=== PATIENT | male | born 1955 | race Caucasian/White ===

== ENCOUNTER → 2024-08-08 | Outpatient (CLI) | payer MEDICARE, SELFPAY ==
--- NOTE | 2024-08-08 13:19 | CT_ITS ---
PROCEDURE: SINUS/FACIAL BONE 08/08/2024 REASON FOR EXAM: SINUSITIS TECHNIQUE: SINUS/FACIAL BONE Coronal and Sagittal reconstruction series were provided. One or more dose reduction techniques were used (e.g., Automated exposure control, adjustment of the mA and/or kV according to patient size, use of iterative reconstruction technique). RADIATION DOSE SUMMARY: CTDlvol: 33.06 mGy DLP: 738.8 mGycm COMPARISON: None. FINDINGS: Frontal: Moderate chronic mucosal inflammatory changes of the left frontal sinus. Ethmoid: Moderate chronic mucosal inflammatory changes of the left ethmoid air cells. Minimal chronic mucosal inflammatory changes of the right ethmoid air cells. Sphenoid: Unremarkable. Maxillary: Moderate chronic mucosal inflammatory thickening obliterating of the left maxillary sinus and extending to the corresponding aspect of the left nasal cavity. Turbinates: Mild hypertrophy of the inferior turbinates. Nasal Septum: Mild S shaped nasal septum deviation. Mastoids/Middle Ears: Unremarkable. CT/Sinus/Facial Bone IMPRESSION: Chronic sinusitis. [facility]
== END | disposition home or self-care (01) ==
LOC: CT 13:13
PROVIDERS: Referring Provider Otolaryngology; Visit Provider Otolaryngology
DX: J32.9 Chronic sinusitis, unspecified (principal)
CPT/HCPCS: 70486

== ENCOUNTER → 2024-09-21 | Outpatient (CLI) | payer MEDICARE, SELFPAY ==
--- NOTE | 2024-09-21 12:06 | EKG12_ITS ---
Test Reason : PREOP Blood Pressure : */* mmHG Vent. Rate : 54 BPM Atrial Rate : 54 BPM P-R Int : 184 ms QRS Dur : 88 ms QT Int : 418 ms P-R-T Axes : 43 -25 -8 degrees QTcB Int : 396 ms Sinus bradycardia Otherwise normal ECG Confirmed by CALVIN WEST ([id number]), supervising editor news reel KENNEDY LANGE ([id number]) on 09/24/2024 6:43:23 AM Referred By: Robin Vasquez Confirmed By: CALVIN WEST
[2024-09-21 13:19] LABS: Hematocrit 45.3 % (40-54); Hemoglobin 15.2 g/dL (13.0-16.5); Mean Corp Hgb Conc 33.6 g/dL (32-36); Mean Corpuscular Volume 92.6 fL (80-94); Mean Platelet Vol. 10.5 fl (6.2-12.0); Platelet Count 264 K/mm3 (150-450); RBC Distribution Width CV 13.9 % (11.6-14.6); RBC Distribution Width SD 47.5 fl (35.1-43.9); Red Blood Count 4.89 M/mm3 (4.6-6.2); White Blood Count 5.3 K/mm3 (4.4-11.0)
[2024-09-21 13:56] LABS: Anion Gap 13 (5-15); BUN 24 mg/dL (4-19); BUN/Creat Ratio 19.0 RATIO (10-20); Calcium,Total 9.7 mg/dL (7.6-11.0); Carbon Dioxide 23.9 mmol/L (21.0-32.0); Chloride 104 mmol/L (98-108); Glucose 93 mg/dL (70-99); Potassium 4.4 mmol/L (3.3-5.1)
== END | disposition home or self-care (01) ==
LOC: PSN 12:06
PROVIDERS: Referring Provider Otolaryngology; Visit Provider Otolaryngology
DX: Z01.818 Encounter for other preprocedural examination (principal)
CPT/HCPCS: 36415; 80048; 85027; 93005

== ENCOUNTER → 2024-10-03 | Outpatient (CLI) | payer MEDICARE, SELFPAY ==
--- NOTE | 2024-10-02 09:45 | ETH_PTH ---
PATIENT: SUNG WEBB LOC: [facility] U#:[id number] AGE/SX: 68/M ROOM: RE10/03/[address]: Dr. Robin Vasquez MD : 1955 BED: DIS: 10/03/2024 SPEC #: [id number] RECD: 10/03/24 15:56 STATUS: JORDON MANCIA #: [id number] FARIDEH: 10/02/24 09:[address]: Robin Vasquez DEPT: SURGICAL PATHOLOGY RECD BY: Orville Saldana Tissues: A - Ethmoid sinus, NOS B - Ethmoid sinus, NOS Procedures: Surgery Specimen Level IV HEADER OPERATION: Functional endoscopic sinus surgery PRE-OP DIAGNOSIS: Nasal congestion, chronic sinusitis, chronic allergy rhinitis TISSUE SUBMITTED: A- Right sinus contents, B- Left sinus contents MICROSCOPIC DIAGNOSIS A. Sinus, right, functional endoscopic sinus surgery: * Fragments of benign respiratory type mucosa and bone with mild chronic inflammation B. Sinus, left, functional endoscopic sinus surgery: * Fragments of benign respiratory type mucosa and bone with mild chronic inflammation MICROSCOPIC DESCRIPTION Slides are reviewed. GROSS DESCRIPTION Received in 2 formalin containers labeled with the patient's name and date of . Designated as: A. Right sinus content is a 1.5 x 1.0 x 0.3 cm aggregate of nunn-red tissue and bone fragments. Entirely submitted in 1 cassette, following decalcification. B. Left sinus contents is a 2.2 x 1.8 x 0.3 cm aggregate of nunn-red tissue and bone fragments. Entirely submitted in 1 cassette, following decalcification. OR 10/04/2024 CPT:22812,36224k7
--- OUTSIDE RECORDS SUMMARY | 2024-10-03 20:12 | XMS RPT_ITS | CCD ---
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 Role Phone ANASTASIA, HARPREET D Unavailable Unavailable ANASTASIA, HARPREET D Unavailable Unavailable ANASTASIA, HARPREET D Unavailable Unavailable ANASTASIA, HARPREET D Unavailable Unavailable ANASTASIA, HARPREET D Unavailable Unavailable ANASTASIA, HARPREET D Unavailable Unavailable ANASTASIA, HARPREET D Unavailable Unavailable ANASTASIA, HARPREET D Unavailable Unavailable System, Provider Not In Primary Care Provider Un available Unavailable Primary Care Provider Unavailabl e No, Physician Primary Care Provider Unavailabl e MARISSA ALONSO Attending Unavailable SYSTEM, PROVIDER NOT IN Referring Unavaila ble SYSTEM, PROVIDER NOT IN Admitting Unavaila ble NO, PHYSICIAN Primary Care Unavailable SYSTEM, PROVIDER NOT IN Referring Unavaila ble SYSTEM, PROVIDER NOT IN Admitting Unavaila ble NO, PHYSICIAN Primary Care Unavailable GERALDINE ALONSORATA Attending Unavailable SYSTEM, PROVIDER NOT IN Referring Unavaila ble SYSTEM, PROVIDER NOT IN Primary Care Unavaila ble SYSTEM, PROVIDER NOT IN Admitting Unavaila ble MARISSA ALONSO Attending Unavailable NO, PHYSICIAN Primary Care Unavailable Unavailable Primary Care Provider Unavailabl e Unavailable Primary Care Provider Unavailabl e Generic Provider MD, No Assigned Pcp Primary Car e Provider Unavailable FELIZ, MAXWELL E Referring Unavailable NAJMA MCKENZIE Referring Unavailable NAJMA MCKENZIE Attending Unavailable SELF Referring Unavailable Dr. Robin Vasquez MD Attending Provider Dr. Robin Vasquez MD Referring Provider GEO REYNAGA Primary Care Provider Generic Provider , No Assigned Pcp Primary Car e Provider Unavailable SELINA NICHOLE Attending Unavailable GAVLAK, MAXWELL E Attending Unavailable SELINA CARLIN Referring Unavailable GAMAXX MAXWELL E Attending Unavailable GENERIC PROVIDER, NO ASSIGNED PCP Primary Care Unavailable Craig MEDLEY, Dr. Reyes Attending Provider Dr. Najma Mckenzie MD Referring Provider GEO REYNAGA Primary Care Provider Unavailabl e GAVLAK, MAXWELL E Referring Unavailable GENERIC PROVIDER, NO ASSIGNED PCP Primary Care Unavailable GAVLAK, MAXWELL E Referring Unavailable GENERIC PROVIDER, NO ASSIGNED PCP Primary Care Unavailable GAVLAK, MAXWELL E Referring Unavailable GENERIC PROVIDER, NO ASSIGNED PCP Primary Care Unavailable JAMARI ROPER Attending Unavailable GAVLAK, MAXWELL E Referring Unavailable GENERIC PROVIDER, NO ASSIGNED PCP Primary Care Unavailable GAVLAK, MAXWELL E Referring Unavailable GENERIC PROVIDER, NO ASSIGNED PCP Primary Care Unavailable LAVERN CAMARGO Attending Unavailable GAVLAK, MAXWELL E Referring Unavailable GENERIC PROVIDER, NO ASSIGNED PCP Primary Care Unavailable GAVLAK, MAXWELL E Referring Unavailable GENERIC PROVIDER, NO ASSIGNED PCP Primary Care Unavailable GAVLAK, MAXWELL E Referring Unavailable GENERIC PROVIDER, NO ASSIGNED PCP Primary Care Unavailable GAVLAK, MAXWELL E Referring Unavailable GENERIC PROVIDER, NO ASSIGNED PCP Primary Care Unavailable GEO REYNAGA Primary Care Provider Sury MEDLEY, Dr. Cole Attending Provider Robin Vasquez Referring Unavailabl Calvin Mendenhall Attending Unavailable Robin Vasquez Referring Unavailabl e Robin Vasquez Attending Unavailabl e CARLINE ANUPAMA Primary Care Unavailable Robin Vasquez Referring Unavailabl e Robin Vasquez Attending Unavailabl e [facility] Unavailable Eric Srinivasan Attending Unavailable [facility] Primary Care Unavailable Najma Mckenzie Referring Unavailable Allergies Allergy Classification Reported Allergen(s) Allergy Type Date of Onset Reaction(s) Facility (12 sources) Faroese elm pollen extract; Translations: [TREE POLLEN-TUVALUAN ELM] Drug Allergy 5 Unknown [facility] Work Phone: (8 sources) Adhesive Tape-Silicones; Translations: [ADHESIVE TAPE-SILICONES] Drug Allergy 5 Itching, Unknown, Rash [facility] (2 sources) Assoxgt-Pvz-Pcf Reductase Inhibitor Allergy to substance 5 myalgia [facility] (1 source) Falpumc-Rxu-Hvo Reductase Inhibitor Drug allergy (disorder) [facility] Repository Medications Current Medications Medication Drug Class(es) Dates Sig (Normalized) Sig (Original) [id number] 200 actuat albuterol 0.09 mg/actuat metered dose inhaler (3 sources) beta2-Adrenergic Agonist Start: 07-26-2024 take 2 puff(s) by inhalation every four hours as needed albuterol HFA (PROVENTIL HFA, VENTOLIN HFA) 90 mcg/actuation inhaler Inhale 2 puffs as instructed every 4 hours as needed. 1 each 5 07/26/2024 Active azelastine hydrochloride 0.137 mg/actuat metered dose nasal spray (5 sources) Histamine-1 Receptor Antagonist Start: 08-29-2024 Azelastine 137 mcg (0.1 %) spray,non-aerosol Active 1 NMA INTRANASAL August 29, 2024 12:00am Start: 05-29-2024 take 2 spray(s) nasa l route twice daily azelastine 0.1% nasal spray Use 2 sprays in each nostril two times a day. 05/29/2024 Active baclofen 20 mg oral tablet (11 sources) gamma-Aminobutyric Acid-ergic Agonist Start: 08-23-2024 take 1 tablet by mouth once daily Baclofen 20 mg tablet Active 20 mg PO daily August 23, 2024 12:00am Start: 06-17-2023 baclofen (Seth esal) 20 mg tablet 1 tablet (20 mg). 06/17/2023 Active ezetimibe 10 mg oral tablet (11 sources) Dietary Cholesterol Absorption Inhibitor Start: 08-23-2024 take 1 tablet by mouth once daily Ezetimibe (Zetia) 10 mg tablet Active 10 mg PO daily August 23, 2024 12:00am Start: 04-25-2023 take 1 tablet by heidy th once daily ezetimibe (Zetia) 10 mg tablet Take 1 tablet (10 mg) by mouth once daily. 04/25/2023 Active fluticasone propionate 0.05 mg/actuat metered dose nasal spray (2 sources) Corticosteroid Start: 08-29-2024 Fluticasone Pr opionate 50 mcg/actuation spray,suspension Active 2 NMA INTRANASAL EVERY MORNING August 29, 2024 12:00am Fluticasone-Umeclid in-Vilanter (3 sources) Anticholinergic, Corticosteroid, beta2-Adrenergic Agonist Start: 08-23-2024 Fluticasone-Umeclidi n-Vi lanter (Trelegy Ellipta) 100-62.5-25 mcg blister with device Active 1 NMA INHALATION daily August 23, 2024 12:00am Start: 05-24-2024 End: 07-26-2024 take 1 puff(s) by inhalation once daily TRELEGY ELLIPTA 100-62.5-25 mcg inhalation powder Inhale 1 puff as instructed once daily. 05/24/2024 07/26/2024 Discontinued fluticasone prp-sod.chl,bicarb 50 mcg- 0.9 % ksps (3 sources) Start: 05-29-2024 fluticasone prp-sod.chl,bicarb 50 mcg- 0.9 % ksps Use 2 sprays in the nose once daily. 05/29/2024 Active gjlubdsuahg-vrpjflmiu-l ilanter (TRELEGY ELLIPTA) 200-62.5-25 mcg inhalation powder (3 sources) Start: 07-26-2024 take 1 puff(s) by inhalation once daily fluticasone-umeclidin- vilanter (TRELEGY ELLIPTA) 200-62.5-25 mcg inhalation powder Inhale 1 puff as instructed once daily. 1 each 07/26/2024 Active gabapentin 400 mg oral capsule (7 sources) Anti-epile ptic Agent Start: 08-29-2024 take 1 tablet by mouth once daily Gabapentin 400 mg tablet Active 400 mg PO daily August 29, 2024 1:26pm Start: 08-23-2024 End: 08-29-2024 take 1 tablet by mouth three times daily Gabapentin 400 mg tablet Discontinued 400 mg PO THREE TIMES A DAY August 23, 2024 12:00am August 29, 2024 1:27pm Start: 03-17-2023 Gabapentin 400 mg tab 400 mg. 03/17/2023 Active gabapentin (Neurontin) 400 mg split tablet (6 sources) Start: 03-17-2023 gabapentin (Neurontin) 400 mg split tablet 1 half tablet (400 mg). 03/17/2023 Active gemfibrozil 600 mg oral tablet (13 sources) Peroxisome Proliferator Receptor alpha Agonist Start: 08-29-2024 take 1 tablet by mouth twice daily Gemfibrozil 600 mg tablet Active 600 mg PO TWICE A DAY August 29, 2024 1:26pm Start: 08-23-2024 End: 08-29-2024 take 1 tablet by mouth once daily Gemfibrozil 600 mg tablet Discontinued 600 mg PO daily August 23, 2024 12:00am August 29, 2024 1:27pm gemfibrozil (Lop id) 600 mg tablet 1 tablet (600 mg). Active lemborexant 5 mg oral tablet (6 sources) Start: 08-23-2024 take 1 tablet by mouth at bedtime Lemborexant (Dayvigo) 5 mg tablet Active 5 mg PO AT BEDTIME August 23, 2024 12:00am take 1 tablet by heidy th once daily at bedtime Dayvigo 5 mg tablet Take 1 tablet (5 mg) by mouth once daily at bedtime. Active predniSONE 10 mg oral tablet (6 sources) Start: 06-21-2024 predniSONE (De ltasone) 10 mg tablet Indications: Cervical radiculopathy 50MG FOR 2 DAYS, 40MG FOR 2 DAYS, 30MG FOR 2 DAYS, 20MG FOR 2 DAYS, 10MG FOR 2 DAYS 30 tablet 06/21/2024 Active Start: 06-21-2024 predniSONE (DE LTASONE) 10 mg tablet Take by mouth once daily. 06/21/2024 Active Completed/Discontinued Medications Medication Drug Class(es) Dates Sig (Normalized) Sig (Original) cetirizine hydrochloride 10 mg oral tablet (2 sources) Histamine-1 Receptor Antagonist Start: 08-23-2024 End: 08-29-2024 take 1 tablet by mouth once daily as needed Cetirizine (Zyrtec) 10 mg tablet Discontinued 10 mg PO daily as needed August 23, 2024 12:00am August 29, 2024 1:25pm Problems Active Problems Problem Classification Problem Date Documented Da te Episodic/Chronic Cancer of prostate (2 sources) Malignant tumor of prostate; Translations: [Malignant neoplasm of prostate] 08-23-2024 Chronic Cardiac dysrhythmias (6 sources) Palpitations; Translations: [Palpitations] Onset: 08-29-2024 08-23-2024 Episodic Chronic kidney disease (2 sources) Chronic kidney disease; Translations: [Chronic kidney disease, unspecified] 08-23-2024 Chronic Chronic obstructive pulmonary disease and bronchiectasis (8 sources) Asthma-chronic obstructive pulmonary disease overlap syndrome; Translations: [Asthma-COPD overlap syndrome (HCC)] Onset: 06-20-2024 07-26-2024 Chronic Diabetes mellitus without complication (2 sources) Hyperglycemia, unspecified; Translations: [Hyperglycemia, unspecified] Onset: 11-02-2023 Episodic Disorders of lipid metabolism (9 sources) Mixed hyperlipidemia; Translations: [Hypercholesterolemi a] Onset: 11-02-2023 Chronic Essential hypertension (3 sources) Essential hypertension; Translations: [Essential (primary) hypertension] Onset: 08-29-2024 08-23-2024 Chronic Malaise and fatigue (3 sources) Fatigue; Translations: [Other fatigue] Onset: 08-29-2024 08-23-2024 Episodic Mood disorders (2 sources) Depressive disorder; Translations: [Depressive disorder] 08-23-2024 Chronic Nonspecific chest pain (2 sources) Chest pain; Translations: [Chest pain, unspecified] 08-29-2024 Episodic Other connective tissue disease (2 sources) Presence of left artificial knee joint; Translations: [Presence of left artificial knee joint] Onset: 06-24-2023 Chronic Other connective tissue disease (2 sources) Pain in left thumb; Translations: [Pain in left finger(s)] 07-12-2023 Episodic Other gastrointestinal disorders (2 sources) H/O: abdominal hernia; Translations: [Personal history of other diseases of the digestive system] 08-23-2024 Episodic Other lower respiratory disease (1 source) Dyspnea 07-26-2024 Episodic Other lower respiratory disease (2 sources) Hypoxemia; Translations: [Hypoxemia] 08-23-2024 Episodic Other lower respiratory disease (2 sources) Cough; Translations: [Cough] 08-23-2024 Episodic Other upper respiratory disease (1 source) Seasonal allergy; Translations: [Other seasonal allergic rhinitis] 06-27-2024 Chronic Other upper respiratory disease (2 sources) Deviated nasal septum; Translations: [Deviated nasal septum] 08-23-2024 Episodic Other upper respiratory infections (1 source) Chronic sinusitis, unspecified; Translations: [Chronic sinusitis, unspecified] Onset: 08-13-2024 Chronic Other upper respiratory infections (2 sources) Posterior rhinorrhea; Translations: [Postnasal drip] Onset: 07-26-2024 07-26-2024 Episodic Residual codes; unclassified (5 sources) Obstructive sleep apnea syndrome; Translations: [Obstructive sleep apnea (adult) (pediatric)] 06-27-2024 Chronic Residual codes; unclassified (1 source) Obstructive sleep apnea (adult) (pediatric); Translations: [JUAN on CPAP] Onset: 07-26-2024 Chronic Residual codes; unclassified (2 sources) Sleep apnea; Translations: [Sleep Apnea] Onset: 06-20-2024 Chronic Spondylosis; intervertebral disc disorders; other back problems (20 sources) Intervertebral disc disorders with radiculopathy, lumbar region; Translations: [Cervical radiculopathy] Onset: 07-07-2017 06-21-2024 Episodic Unclassified (1 source) l4-5 DDD / l4-5 DDD() Onset: 07-19-2017 Unclassified (1 source) Asthma-COPD overlap syndrome (HCC); Translations: [Asthma-COPD overlap syndrome (HCC)] Onset: 07-26-2024 Past or Other Problems Problem Classification Problem Date Documented Da te Episodic/Chronic Other connective tissue disease (11 sources) Trigger thumb of left hand; Translations: [Trigger thumb, left thumb] Onset: 07-12-2023 07-12-2023 Episodic Unclassified (1 source) l4-5 DDD; Translations: [l4-5 DDD] Onset: 07-19-2017 Results Test Name Value Interpretation Reference Range Facility Electrocardiogram reportOrde red By: Calvin Ga on 09-24-[address] [facility] [address] [place] [address] 12 Lead EKG 09/21/24 1217 MR#: [id number] Acct: [id number] Name: SUNG HOBBS Rep #:[id number] : 1955 68 From: Calvin Ga MD Attending Dr: Dr. Robin Vasquez MD Status: REG CLI Ordering Dr: Robin Vasquez MD D ate: 09/21/24 Location: PSN Sex: M C Admitted: Test Reason : PREOP Blood Pressure : */* mmHG Vent. Rate : 54 BPM Atrial Rate : 54 BPM P-R Int : 184 ms QRS Dur : 88 ms QT Int : 418 ms P-R-T Axes : 43 -25 -8 degrees QTcB Int : 396 ms Sinus bradycardia Otherwise normal ECG Confirmed by CALVIN GA ([id number]), editor continuity and script KENNEDY LANGE ([id number]) on 09/24/2024 6:43:23 AM Referred By: Robin Vasquez Confirmed By: CALVIN GA 09/24/2443 Date _ Calvin Ga MD CC: GEO REYNAGA; Dr. Robin Vasquez MD ~ Signed [facility] Work Phone: 12 Lead EKGon 09-21-2024 12 Lead EKG [facility] [address] [place] [address] 12 Lead EKG 09/21/24 1217 MR#: [id number] Acct: [id number] Name: SUNG HOBBS Rep #: [id number] : 1955 68 From: Calvin Ga MD Attending Dr: Dr. Robin Vasquez MD Statu s: REG CLI Ordering Dr: Robin Vasquez MD Date: 5 Location: [facility] Sex: M C Admitted: Test Reason : PREOP Blood Pressure : */* mmHG Vent. Rate : 54 BPM Atrial Rate : 54 BPM P-R Int : 184 ms QRS Dur : 88 ms QT Int : 418 ms P-R-T Axes : 43 -25 -8 degrees QTcB Int : 396 ms Sinus bradycardia Otherwise normal ECG Confirmed by CALVIN GA ([id number]), editor continuity and script KENNEDY LANGE ([id number]) on 09/24/2024 6:43:23 AM Referred By: Robin Vasquez Confirmed By: CALVIN GA 09/24/24 0643 Date Calvin Ga MD CC: GEO REYNAGA; Dr. Robin Vasquez MD Signed Normal [facility] Anion gap in Serum or Plasma Ordered By: Robin Vasquez on 09-21-2024 Anion gap [Moles/Vol] 13 mmol/L 5-15 [facility] BUN/creatinine ratioOrdered By: Robin Vasquez on 09-21-2024 Urea nitrogen/Creatinine [Mass ratio] 19.0 mg/mg 10-20 [facility] Basic Metabolic Profile (BMP )on 09-21-2024 BUN/CRE 19.0 RATIO Normal - [facility] Comment on above: Performed By: #### L 100.0500, L500.2500 #### [facility] [address] [place], [address] Calcium [Mass/Vol] 9.7 mg/dL Normal 7.6-11.0 [facility] Comment on above: Performed By: #### L 100.0500, L500.2500 #### [facility] [address] [place], [address] Chloride [Moles/Vol] 104 mmol/L Normal 98-108 [facility] Comment on above: Performed By: #### L 100.0500, L500.2500 #### [facility] [address] [place], [address] CO2 [Moles/Vol] 23.9 mmol/L Normal 21.0-32.0 [facility] Comment on above: Performed By: #### L 100.0500, L500.2500 #### [facility] [address] [place], [address] Creatinine [Mass/Vol] 1.27 mg/dL High 0.70-1.20 [facility] Comment on above: Performed By: #### L 100.0500, L500.2500 #### [facility] [address] [place], [address] GAP 13 Normal 5-15 [facility] Comment on above: Performed By: #### L 100.0500, L500.2500 #### [facility] [address] [place], [address] GFR/1.73 sq M.predicted among non-blacks MDRD (S/P/Bld) [Vol rate/Area] 62 mL/min/{1.73_m2} Normal >60 [facility] Comment on above: Result Comment: mL/m in/1.73m2 CKD-EPI Creatinine Equation (2020) Performed By: #### L 100.0500, L500.2500 #### [facility] [address] [place], [address] Glucose [Mass/Vol] 93 mg/dL Normal 70-99 [facility] Comment on above: Performed By: #### L 100.0500, L500.2500 #### [facility] [address] [place], [address] Potassium [Moles/Vol] 4.4 mmol/L Normal 3.3-5.1 [facility] Comment on above: Performed By: #### L 100.0500, L500.2500 #### [facility] [address] [place], [address] Sodium [Moles/Vol] 141 mmol/L Normal 133-145 [facility] Comment on above: Performed By: #### L 100.0500, L500.2500 #### [facility] [address] [place], [address] Urea nitrogen [Mass/Vol] 24 mg/dL High 4-19 [facility] Comment on above: Performed By: #### L 100.0500, L500.2500 #### [facility] [address] [place], [address] CBC-Complete Blood Cnt No Di ffon 09-21-2024 Erythrocyte distribution width (RBC) [Ratio] 13.9 % Normal 11.6-14.6 [facility] Comment on above: Performed By: #### L 100.0500, L500.2500 #### [facility] [address] [place], [address] Hematocrit (Bld) [Volume fraction] 45.3 % Normal 40-54 [facility] Comment on above: Performed By: #### L 100.0500, L500.2500 #### [facility] [address] [place], [address] Hemoglobin (Bld) [Mass/Vol] 15.2 g/dL Normal 13.0-16.5 [facility] Comment on above: Performed By: #### L 100.0500, L500.2500 #### [facility] [address] [place], [address] MCH (RBC) [Entitic mass] 31.1 pg Normal 27.0-32.0 [facility] Comment on above: Performed By: #### L 100.0500, L500.2500 #### [facility] [address] [place], [address] MCHC (RBC) [Mass/Vol] 33.6 g/dL Normal 32-36 [facility] Comment on above: Performed By: #### L 100.0500, L500.2500 #### [facility] [address] [place], [address] MCV (RBC) [Entitic vol] 92.6 fL Normal 80-94 [facility] Comment on above: Performed By: #### L 100.0500, L500.2500 #### [facility] [address] [place], [address] Platelet mean volume (Bld) [Entitic vol] 10.5 fL Normal 6.2-12.0 [facility] Comment on above: Performed By: #### L 100.0500, L500.2500 #### [facility] [address] [place], [address] Platelets (Bld) [#/Vol] 264 10*3/uL Normal 150-450 [facility] Comment on above: Performed By: #### L 100.0500, L500.2500 #### [facility] [address] [place], [address] RBC (Bld) [#/Vol] 4.89 10*6/uL Normal 4.6-6.2 [facility] Comment on above: Performed By: #### L 100.0500, L500.2500 #### [facility] [address] [place], [address] RDW SD 47.5 fl High 35.1-43.9 [facility] Comment on above: Performed By: #### L 100.0500, L500.2500 #### [facility] [address] [place], [address] WBC (Bld) [#/Vol] 5.3 10*3/uL Normal 4.4-11.0 [facility] Comment on above: Performed By: #### L 100.0500, L500.2500 #### [facility] [address] [place], [address] Carbon dioxide, total [Moles /volume] in Central venous bloodOrdered By: Robin Vasquez on 09-21-2024 CO2 [Moles/Vol] 23.9 mmol/L 21.0-32.0 [facility] Chloride assayOrdered By: Tammy Vasquez on 09-21-2024 Chloride [Moles/Vol] 104 mmol/L 98-108 [facility] Erythrocyte distribution wid th ratioOrdered By: Robin Vasquez on 09-21-2024 Erythrocyte distribution width (RBC) [Ratio] 13.9 % 11.6-14.6 [facility] Erythrocyte distribution wid th standard deviationOrdered By: Robin Vasquez on 09-21-2024 Erythrocyte distribution width (RBC) [Ratio] 47.5 fl High 35.1-43.9 [facility] Glomerular filtration rate ( GFR) estimation/1.73 sq m using serum, plasma, or whole bOrdered By: Robin Vasquez on 09-21-2024 GFR/1.73 sq M.predicted among non-blacks MDRD (S/P/Bld) [Vol rate/Area] 62 mL/min/{1.73_m2} >60 [facility] Comment on above: mL/min/1.73m2 CKD-EP I Creatinine Equation (2020) Hematocrit Auto (Bld) [Volum e fraction]Ordered By: Robin Vasquez on 09-21-2024 Hematocrit (Bld) [Volume fraction] 45.3 % 40-54 [facility] Hemoglobin measurementOrdere d By: Robin Vasquez on 09-21-2024 Hemoglobin (Bld) [Mass/Vol] 15.2 g/dL 13.0-16.5 [facility] MCV (mean corpuscular volume ) determinationOrdered By: Robin Vasquez on 09-21-2024 MCV (RBC) [Entitic vol] 92.6 fL 80-94 [facility] Mean corpuscular hemoglobin (MCH) determinationOrdered By: [facility] Vas[facility] on 09-21-2024 MCH (RBC) [Entitic mass] 31.1 pg 27.0-32.0 [facility] Mean corpuscular hemoglobin concentration (MCHC) determinationOrdered By: Robin Vasquez on 09-21-2024 MCHC (RBC) [Mass/Vol] 33.6 g/dL 32-36 [facility] Mean platelet volume determi nationOrdered By: Robin Vasquez on 09-21-2024 Platelet mean volume (Bld) [Entitic vol] 10.5 fL 6.2-12.0 [facility] Platelet countOrdered By: Tammy Vasquez on 09-21-2024 Platelets (Bld) [#/Vol] 264 10*3/uL 150-450 [facility] Potassium measurement (mass/ volume)Ordered By: Robin Vasquez on 09-21-2024 Potassium (Unsp spec) [Mass/Vol] 4.4 mmol/L 3.3-5.1 [facility] RBC Auto (Bld) [#/Vol]Ordere d By: Robin Vasquez on 09-21-2024 RBC (Bld) [#/Vol] 4.89 10*6/uL 4.6-6.2 [facility] Serum creatinine measurement (mass/volume)Ordered By: Robin Vasquez on 09-21-2024 Creatinine [Mass/Vol] 1.27 mg/dL High 0.70-1.20 [facility] Serum glucose measurement (m ass/volume)Ordered By: Robin Vasquez on 09-21-2024 Glucose [Mass/Vol] 93 mg/dL 70-99 [facility] Serum or plasma calcium farzaneh urement (mass/volume)Ordered By: Robin Vasquez on 09-21-2024 Calcium [Mass/Vol] 9.7 mg/dL 7.6-11.0 [facility] Serum or plasma urea nitroge n measurement (mass/volume)Ordered By: Robin Vasquez on 09-21-2024 Urea nitrogen [Mass/Vol] 24 mg/dL High 4-19 [facility] Sodium levelOrdered By: Jorge Vasquez on 09-21-2024 Sodium [Moles/Vol] 141 mmol/L 133-145 [facility] White blood cell (WBC) count Ordered By: Robin Vasquez on 09-21-2024 WBC (Bld) [#/Vol] 5.3 10*3/uL 4.4-11.0 [facility] Cardiology Visit Reporton Cardiology Visit Report [facility] [address] [place], [place] [address] OFFICE VISIT Date of Service: 08/29/24 MR#: [id number] Acct: [id number] Name: SUNG HOBBS Rep #: [id number] : 1955 Provider: Dr. Eric Srinivasan MD Age/Sex: 68/M Location: [facility] Status: Signed HPI HPI History of Present Illness Details: Pleasant 68-year-old man with a history of shortness of breath and chest discomfort which she describes as continuous pressure-like sensation occasionally with palpitations and some shortness of breath. He says that he has gained a fair amount of weight in the last few months. He is not a known diabetic but has had hemoglobin A1c's which have been trending upwards as well as random blood glucose which have been elevated. With regard to his chest discomfort and palpitations he did have a 7-day monitor placed which demonstrated an average heart rate of 64 bpm and minimum of 40 bpm and maximal 136 bpm which was sinus rhythm and a run of supraventricular tachycardia. An echocardiogram performed in July 2024 demonstrated an ejection fraction of 59% with a mildly dilated aorta measuring 3.9 cm. No valvular abnormalities were noted. He had previously had a stress myocardial perfusion scan in June 2022 demonstrating no evidence of ischemia at a workload of 10.2 metabolic equivalents. His other blood work is unremarkable. His lipid profile demonstrated total cholesterol 170 HDL of 30 and LDL of 108 and triglycerides 159. He tells me that these have been going upwards and he has been worried about this. He does also have a sinus problem for which he tells me that he may be undergoing sinus surgery in about 2 weeks. His physical exam is unremarkable and his electrocardiogram demonstrates sinus rhythm. Intake Vital Signs 08/29/24 13:27 Height 6 ft 1 in Weight: 237 lb BMI 31.2 BP 107/66 Blood Pressure Location Lt brachial Position Sitting Respiration 16 Pulse 48 L Pulse Source Monitor Intake Visit Reasons: Tachycardia/Family Hx of Heart Issues (Self) Retail Loan Originator Required: No Accompanied by: Significant Other Is patient in pain?: No Allergies Xowylrk-PHE-ZnF Reductase Inhibitor Allergy (Intermediate, Verified 08/23/24 13:41) myalgia Medications ???Medication ???Instructions ???Recorded ???Confirmed ???Type baclofen 20 mg tablet 20 mg PO QDAY 08/23/24 08/29/24 Hi story ezetimibe 10 mg tablet (Zetia) 10 mg PO QDAY 08/23/24 08/29/24 Hi story fluticasone fur. 100 mcg-umeclid 1 inh inhalation QDAY 08/23/24 History 62.5 mcg-vilant 25 mcg inhalat.powder (Trelegy Ellipta) lemborexant 5 mg tablet (Dayvigo) 5 mg PO QHS 08/23/24 08/29/24 His tory azelastine 137 mcg (0.1 %) nasal 1 spray intranasal 08/29/24 History spray fluticasone propionate 50 2 spray intranasal QAM 08/29/24 History mcg/actuation nasal spray,suspension gabapentin 400 mg tablet 400 mg PO QDAY 08/29/24 08/29/24 H istory gemfibrozil 600 mg tablet 600 mg PO BID 08/29/24 08/29/24 Hi story Have you fallen in the past year?: No PFSH Medical History Palpitations Prostate cancer CRD (chronic renal disease) Hypoxemia Hypercholesterolemia Fatigue Depressive disorder Essential (primary) hypertension Mixed hyperlipidemia Deviated septum Cough JUAN (obstructive sleep apnea) COPD (chronic obstructive pulmonary disease) Tachycardia Surgical History Hx of prostatectomy Hx of fusion of cervical spine History of abdominal hernia Family History Father Heart disease Mother Heart disease Social History Smoking Status: Never smoker alcohol intake: never ROS Const Const: Positive for fatigue and difficulty sleeping; Negative for weakness, headache(s) or daytime sleepiness ENT ENT: Negative for headache(s), dizziness or Nosebleed/epistaxis Cardio Chest Pain: Yes Frequency: other (continuous) Character: other (heaviness; pressure) Location: mid sternal, left chest and right chest Duration: continuous Palpitations: Yes feels like its: fast and skipping Edema: Bilateral (BLE trace at times) Resp Respiratory: Positive for SOB with activity and SOB at rest; Negative for SOB orthopnea SOB lying down or Cough GI GI: Negative nausea, vomiting or heartburn Neuro Neuro: Negative for dizziness, lightheadedness, near syncope, headache(s) or weakness Endo Endo: Positive for fatigue Cardiology Exam Const Appearance: cooperative, healthy appearing, no acute distress, well developed and well groomed Nutritional Appearance: average body habitus a (more content not included)... Normal [facility] ECHOon 08-10-2024 Echocardiography Echocardiography Rep ort: Transthoracic Echo Formerly [facility] Date of service: 08/10/2024 11:23:06 AM AND GAS LEASE PUMPER Ordering physician: NAJMA MCKENZIE Exam indication: Shortness of Breath Technologist: Zak Mendoza Interpreting physician: Quan Feliciano MD PATIENT: Name: MR. SUNG HOBBS : 1955 Age: 68 years Gender: M History of dyslipidemia. Primary rhythm: sinus. Height: 182.88 cm BSA: 2.33 m Weight: 107.23 kg BMI: 32.1 kg/m Heart rate 56 bpm Color Doppler was utilized to interrogate the cardiac valves assessed and spectral Doppler was utilized to determine the flow velocities and pressure gradients reported in this exam. Myocardial strain analysis was performed in this exam to aid in the assessment of cardiac function. MEASUREMENTS: Value Indexed Normal Max aortic dimension 3.9 cm Ao < 3.8 Left atrial volume 78 ml (biplane A-L) 33 ml/m Celsa <= 34 LV ID (diastole) 5.6 cm (2D) 2.40 cm/m LV ID (systole) 3.2 cm (2D) 1.38 cm/m IVS, leaflet tips 1.3 cm (2D) Posterior wall thickness 0.9 cm (2D) Left ventricular mass 245 g (2D) 105 g/m Global peak long strain -17.1 % LV stroke volume 81 ml (2D biplane) LV end diastolic volume 138 ml (2D biplane) 59.3 ml/m 34<=EDVi<75 LV end systolic volume 57 ml (2D biplane) 24.4 ml/m Ejection Fraction 59 % (2D biplane) EF > 52 FINDINGS: LEFT VENTRICLE The left ventricle is normal in size. Left ventricular systolic function is normal globally. Global LV myocardial strain is normal. Normal left ventricular diastolic function. Mitral annular lateral E/e': 5.3. Mitral annular septal E/e': 5.3. Wall Motion: All scored segments are normal. RIGHT VENTRICLE The right ventricle is normal in size. Right ventricular systolic function is normal. RV systolic tissue Doppler velocity is 13.0 cm/s. Estimated right atrial pressure is 8 mmHg based on IVC assessment. LEFT ATRIUM The left atrial cavity is normal in size. Pulmonary Veins: The pulmonary venous pattern showed blunted systolic flow. RIGHT ATRIUM The right atrial cavity is normal in size. Inferior Vena Cava: The inferior vena cava appears normal measuring 1.8 cm. The vessel decreases less than 50 percent with inspiration. MITRAL VALVE The mitral valve leaflets are structurally normal. There is trace mitral valve regurgitation. The pressure half time is 61 msec. The peak mitral E/A ratio is 1.17. The average mitral E/e' ratio is 5.3. The mitral flow deceleration time is 209 msec. TRICUSPID VALVE The tricuspid valve leaflets are structurally normal. There is no tricuspid valve regurgitation. AORTIC VALVE The aortic valve cusps are structurally normal. There is no aortic valve stenosis. There is no aortic valve regurgitation. Tricuspid aortic valve. The peak gradient is 5 mmHg (peak velocity = 112.0 cm/s). PULMONIC VALVE The pulmonic valve cusps are structurally normal. There is no pulmonic valve stenosis. There is trace pulmonic valve regurgitation. AORTA The visualized aorta is borderline dilated. Measurements - Aortic valve annulus 2.0 cm. Sinus: 3.9 cm. Mid ascending aorta 3.8 cm. Distal ascending aorta 3.8 cm. Mid arch 3.3 cm. INTERATRIAL SEPTUM The interatrial septum is normal. There is no evidence of intracardiac shunting as detected by Doppler. INTERVENTRICULAR SEPTUM The interventricular septum is normal. PERICARDIUM The pericardium is normal. There is a trivial pericardial effusion adjacent to the left ventricle. There is an epicardial fat pad. CONCLUSIONS: - Exam indication: Shortness of Breath - The left ventricle is normal in size. Left ventricular systolic function is normal. EF = 59 5% (2D biplane). Normal left ventricular diastolic function. - The right ventricle is normal in size. Right ventricular systolic function is normal. - There are no significant valvular abnormalities. - The visualized aorta is borderline dilated with a maximal dimension of 3.9 cm. - The patient has not had a prior CC echocardiographic exam for comparison. * * * Final * * * CC [employer] [facility] : [id number] Normal [facility] Sinus/Facial Boneon 08-09-19 Sinus/Facial Bone [facility] [address] [place], [place] [id number] Sinus/Facial Bone MR#: [id number] Acct: [id number] Name: SUNG HOBBS Rep #: [id number] : 1955 M 68 From: Hollis paredes MD PCP: GEO REYNAGA Status: REG CLI Study: Sinus/Facial Bone Date of Exam: 08/08/24 Exam# [id number] Ordering Dr: Robin Vasquez MD PROCEDURE: SINUS/FACIAL BONE 08/08/2024 REASON FOR EXAM: SINUSITIS TECHNIQUE: SINUS/FACIAL BONE Coronal and Sagittal reconstruction series were provided. One or more dose reduction techniques were used (e.g., Automated exposure control, adjustment of the mA and/or kV according to patient size, use of iterative reconstruction technique). RADIATION DOSE SUMMARY: CTDlvol: 33.06 mGy DLP: 738.8 mGycm COMPARISON: None. FINDINGS: Frontal: Moderate chronic mucosal inflammatory changes of the left frontal sinus. Ethmoid: Moderate chronic mucosal inflammatory changes of the left ethmoid air cells. Minimal chronic mucosal inflammatory changes of the right ethmoid air cells. Sphenoid: Unremarkable. Maxillary: Moderate chronic mucosal inflammatory thickening obliterating of the left maxillary sinus and extending to the corresponding aspect of the left nasal cavity. Turbinates: Mild hypertrophy of the inferior turbinates. Nasal Septum: Mild S shaped nasal septum deviation. Mastoids/Middle Ears: Unremarkable. CT/Sinus/Facial Bone IMPRESSION: Chronic sinusitis. [facility] CC: GEO REYNAGA; Dr. Robin Vasquez MD Interior Decorator: Signed Normal [facility] CNOVon 07-26-2024 CNOV Office Visit (PULMWS ) -- SUNG HOBBS V ([id number]) 1955 M Date Time Provider Department 07/26/24 12:45 PM NAJMA MCKENZIE PULBalbirWS During your visit today, we recorded the following information about you: Pulse Blood pressure Weight 65/minute 133/82 107.2 kg Najma Mckenzie MD 07/26/2024 3:40 PM Signed . Respiratory [place] Note Patient name: Sung Hobbs PCP: No primary care provider on file. Referring Physician: Self referral Recording using Gydget software for draft documentation of the visit was discussed with the patient/authorized associate sales representative; all questions welcomed and answered. Patient/authorized associate sales representative agreed to proceed CC: COPD HPI: Sung Hobbs 68 year old male never smoker with PMH significant for obesity, JUAN on CPAP, allergic rhinitis, prostate cancer s/p TURP, history of a diagnosis of asthma presenting for evaluation of obstructive lung disease. Sung reports a sudden onset of dyspnea and cough over the past few months, which has significantly impacted his ability to engage in physical activities such as bicycling and pickleball. 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 He denies any exacerbation of symptoms with changes in weather, such as heat, humidity, or cold air. He has been using Trelegy for a little over a month, which he finds helpful, and denies any issues with oral sores or tremors. Patient currently denies any wheezing although his states that she could hear him breathing from across the room when this initially started. He was previously diagnosed with asthma approximately 10 years ago but was not prescribed an inhaler at that time. He denies a family history of asthma. His dyspnea has adversely impacted his daily activities. He has had a persistent cough, both productive and non-productive. More prominant in the morning but can occur throughout the day. He has a history of sinus issues and is currently seening an ENT physician, pending allergy assessment. He experiences significant postnasal drainage, particularly in the morning. Sung has been experiencing nocturnal SO,B waking up suddenly between 0300 and 0600, feeling like he cannot breathe, with a racing heart. He uses an oximeter at home and has recorded oxygen saturation levels of 91-94%. He is scheduled for an overnight oximetry test by his family doctor, who suspects a potential cardiac component to his symptoms. Sung has a history of sleep apnea and uses a CPAP machine with good compliance. DATA: PFT from [place] 04/18/24: FVC 3.64 L 74% FEV1 2.60 L 69% FEV1/FVC 69% FEF 25-75% 1.46 L 52% No improvement with bronchodilator TLC 6.88 L 89% RV 3.03 L 118% RV/TLC 45% DLCO 28.1 102% Raw 2.75 228% Pulmonary function test show mild obstruction improvement postbronchodilator. Minimal air trapping and normal diffusion Labs: Alpha 1 PiMM Allergy panel normal Imaging / Diagnostic Studies: Chest x-ray performed in [place] 05/2024 report states no abnormality PAST MEDICAL HISTORY Diagnosis Date Obstructive lung disease (HCC) JUAN (obstructive sleep apnea) on CPAP Prostate cancer (HCC) Rhinitis ALLERGIES Allergen Reactions Tree Pollen-Marcelle* Unknown fluticasone prp-sod.chl,bicarb 50 mcg- 0.9 % ksps Use 2 sprays in the nose once daily. azelastine 0.1% nasal spray Use 2 sprays in each nostril two times a day. predniSONE (DELTASONE) 10 mg tablet Take by mouth once daily. baclofen 20 mg tablet 20 mg. ezetimibe (ZETIA) 10 mg tablet Take 10 mg by mouth. Gabapentin 400 mg tab 400 mg. gemfibrozil (LOPID) 600 mg tablet 600 mg. orlejnlytfx-riwcxwcut-lgcb nter (TRELEGY ELLIPTA) 200-62.5-25 mcg inhalation powder Inhale 1 puff as instructed once daily. albuterol HFA (PROVENTIL HFA, VENTOLIN HFA) 90 mcg/actuation inhaler Inhale 2 puffs as instructed every 4 hours as needed. Social History Tobacco Use Smoking status: Never Smokeless tobacco: Never Vaping Use Vaping status: Never Used Substance Use Topics Alcohol use: Yes Comment: Evening wine 3oz Drug use: Not Currently Retired from law enforcement Pets: None FAMILY HISTORY Problem Relation Age of Onset other (DM) Mother Heart disease Mother other (HTN) Mother Heart disease Father MVA PAST SURGICAL HISTORY Procedure Laterality Date BACK SURGERY HX Lumbar and cervical EYE SURGERY HX Lazy eye HERNIA REPAIR HX ORCHIECTOMY SIMPLE RADICAL PROSTATECTOMY REPAIR ROTATOR CUFF,ACUTE Right SEPTOPLASTY TOTAL KNEE REPLACEMENT Left VASECTOMY PMH, Social history, family history and surgical history reviewed and updated in EMR REVIEW OF SYSTEMS: CONSTITUTIONAL: No fevers, chills, nightsweats, unintended weight loss HEENT: Positive nasal congestion/sinus symptoms, postnasal drip. No and (more content not included)... Normal [facility] 07-25-2024 CNPN Telephone (PULMWS) -- SUNG HOBBS V ([id number]) 1955 M Date Time Provider Department 07/25/24 NAJMA MCKENZIE During your visit today, we recorded the following information about you: Selma Yanez LPN 07/25/2024 9:37 AM Signed ----- Message from Najma Mckenzie MD sent at 07/25/2024 5:04 AM EDT ----- Scheduled for tomorrow. Has JUAN. Non smoker without evidence of COPD. Patient needs to know I do not manage JUAN, so may not be an appropriate visit Selma Yanez LPN 07/25/2024 9:38 AM Signed LMTC to verify reason for visit. Dr. Mckenzie does not manage sleep apnea. EDISON Mayorga Kathleen, LPN 07/25/2024 10:40 AM Signed Patient returned call to [facility] line confirming appt is for second opinion COPD. Selma Yanez LPN Allergies As of Date: 07/25/2024 Noted Allergy Reaction TREE POLLEN-TUVALUAN ELM 04/23/2024 16 - Unknown ADHESIVE TAPE-SILICONES 06/20/2024 9 - Itching 2 - Rash 16 - Unknown Date Reviewed: Never Reviewed Reason for Visit: Appointment [186] Prescriptions as of 07/25/2024 - baclofen 20 mg tablet 20 mg. - ezetimibe (ZETIA) 10 mg tablet Take 10 mg by mouth. - Gabapentin 400 mg tab 400 mg. - gemfibrozil (LOPID) 600 mg tablet 600 mg. Problem List As Of Date 07/25/2024 Noted Resolved History of left knee replacement [Z96.652] 06/24/2023 Trigger finger of left thumb [M65.312] 07/12/2023 Encounter Status:Closed by SELMA YANEZ on 07/25/24 Normal [facility] MR CERVICAL SPINE WO IV CONT Amadou 07-25-2024 MR CERVICAL SPINE WO IV CONTRAST Interpreted By: Shahram Cline, STUDY: MR CERVICAL SPINE WO IV CONTRAST; ; 07/25/2024 10:24 am INDICATION: Signs/Symptoms:neck and arm numbness. Neck pain with numbness and tingling both arms. History of anterior corpectomy in 2002. COMPARISON: Plain film examination of 06/21/2024. ACCESSION NUMBER(S): [id number] ORDERING CLINICIAN: MAXWELL SANTANA TECHNIQUE: Multiplanar and multisequential MR images of the cervical spine are performed. FINDINGS: Postoperative changes are identified with bilateral facet screws from C5 through T1. There is artifact surrounding the hardware which obscures adjacent bone soft tissues. The patient is also status post corpectomy with anterior fusion from C3 through C6. There is solid osseous union at these disc spaces. The cervical vertebral body heights and alignment are otherwise maintained. The facet joints are partially obscured by postsurgical artifact align normally. There is no acute bone marrow edema. The craniocervical relationship is within normal limits. The cervical spinal cord is of normal and uniform caliber. There is no intramedullary mass or cord expansion. Axial images are performed through the cervical disc spaces from C1 through T1. The C1-2 relationship is within normal limits. The C1 ring is intact. The C2-3 disc space level demonstrates mild to moderate bilateral facet arthrosis greater on the right with mild narrowing of the right neural foramen. There is some marginal spurring with mass effect upon the posterior subarachnoid space and some effacement of the anterior subarachnoid space. There is some effacement of the posterior margin of the spinal cord and no cord edema. The C3-4 disc space level demonstrates mild to moderate bilateral facet arthrosis and uncovertebral arthrosis. There is no significant central canal or neural foraminal stenosis. The C4-5 disc space level demonstrates mild to moderate bilateral facet arthrosis. There is no significant central canal or neural foraminal stenosis. The C5-6 disc space level is partially obscured by postsurgical artifact. There is no significant central canal or neural foraminal stenosis. The C6-7 disc space level is partially obscured by postsurgical artifact. There is posterior laminectomy at the midline. There is no significant central canal or neural foraminal stenosis. The C7-T1 disc space level is obscured by postsurgical artifact. There is no significant central canal or neural foraminal stenosis. IMPRESSION: Status post corpectomy with anterior fusion from C3 through C6. There is solid bony contiguity at the intervening disc spaces. Status post posterior decompression and laminectomy at C6-7. Bilateral spinal rods and facet screws are identified from C5 through T1. Mild central canal narrowing at C2-3 secondary to bulging disc and posterior marginal spurring. There is some effacement of the posterior margin spinal cord though no cord edema. No significant neural foraminal narrowing allowing for postsurgical artifact. No acute osseous abnormality. No intrinsic spinal cord abnormality. MACRO: None Signed by: Shahram Cline 07/25/2024 11:03 AM Dictation workstation: [id number] [facility] Comment on above: Order Comment: K R EAD MR Cervical spine WO contras ton 07-25-2024 Status post corpecto my with anterior fusion from C3 through C6. There is solid bony contiguity at the intervening disc spaces. Status post posterior decompression and laminectomy at C6-7. Bilateral spinal rods and facet screws are identified from C5 through T1. Mild central canal narrowing at C2-3 secondary to bulging disc and posterior marginal spurring. There is some effacement of the posterior margin spinal cord though no cord edema. No significant neural foraminal narrowing allowing for postsurgical artifact. No acute osseous abnormality. No intrinsic spinal cord abnormality. MACRO: None Signed by: Shahram Cline 07/25/2024 11:03 AM Dictation workstation: [id number] MMODAL Interpreted By: Shahram Cline, STUDY: MR CERVICAL SPINE WO IV CONTRAST; ; 07/25/2024 10:24 am INDICATION: Signs/Symptoms:neck and arm numbness. Neck pain with numbness and tingling both arms. History of anterior corpectomy in 2002. COMPARISON: Plain film examination of 06/21/2024. ACCESSION NUMBER(S): [id number] ORDERING CLINICIAN: MAXWELL SANTANA TECHNIQUE: Multiplanar and multisequential MR images of the cervical spine are performed. FINDINGS: Postoperative changes are identified with bilateral facet screws from C5 through T1. There is artifact surrounding the hardware which obscures adjacent bone soft tissues. The patient is also status post corpectomy with anterior fusion from C3 through C6. There is solid osseous union at these disc spaces. The cervical vertebral body heights and alignment are otherwise maintained. The facet joints are partially obscured by postsurgical artifact align normally. There is no acute bone marrow edema. The craniocervical relationship is within normal limits. The cervical spinal cord is of normal and uniform caliber. There is no intramedullary mass or cord expansion. Axial images are performed through the cervical disc spaces from C1 through T1. The C1-2 relationship is within normal limits. The C1 ring is intact. The C2-3 disc space level demonstrates mild to moderate bilateral facet arthrosis greater on the right with mild narrowing of the right neural foramen. There is some marginal spurring with mass effect upon the posterior subarachnoid space and some effacement of the anterior subarachnoid space. There is some effacement of the posterior margin of the spinal cord and no cord edema. The C3-4 disc space level demonstrates mild to moderate bilateral facet arthrosis and uncovertebral arthrosis. There is no significant central canal or neural foraminal stenosis. The C4-5 disc space level demonstrates mild to moderate bilateral facet arthrosis. There is no significant central canal or neural foraminal stenosis. The C5-6 disc space level is partially obscured by postsurgical artifact. There is no significant central canal or neural foraminal stenosis. The C6-7 disc space level is partially obscured by postsurgical artifact. There is posterior laminectomy at the midline. There is no significant central canal or neural foraminal stenosis. The C7-T1 disc space level is obscured by postsurgical artifact. There is no significant central canal or neural foraminal stenosis. [facility] MMODAL Vic Cline MD - 07/25/2024 Interpreted By: Sahhram Cline, STUDY: MR CERVICAL SPINE WO IV CONTRAST; ; 07/25/2024 10:24 am INDICATION: Signs/Symptoms:neck and arm numbness. Neck pain with numbness and tingling both arms. History of anterior corpectomy in 2002. COMPARISON: Plain film examination of 06/21/2024. ACCESSION NUMBER(S): [id number] ORDERING CLINICIAN: MAXWELL SANTANA TECHNIQUE: Multiplanar and multisequential MR images of the cervical spine are performed. FINDINGS: Postoperative changes are identified with bilateral facet screws from C5 through T1. There is artifact surrounding the hardware which obscures adjacent bone soft tissues. The patient is also status post corpectomy with anterior fusion from C3 through C6. There is solid osseous union at these disc spaces. The cervical vertebral body heights and alignment are otherwise maintained. The facet joints are partially obscured by postsurgical artifact align normally. There is no acute bone marrow edema. The craniocervical relationship is within normal limits. The cervical spinal cord is of normal and uniform caliber. There is no intramedullary mass or cord expansion. Axial images are performed through the cervical disc spaces from C1 through T1. The C1-2 relationship is within normal limits. The C1 ring is intact. The C2-3 disc space level demonstrates mild to moderate bilateral facet arthrosis greater on the right with mild narrowing of the right neural foramen. There is some marginal spurring with mass effect upon the posterior subarachnoid space and some effacement of the anterior subarachnoid space. There is some effacement of the posterior margin of the spinal cord and no cord edema. The C3-4 disc space level demonstrates mild to moderate bilateral facet arthrosis and uncovertebral arthrosis. There is no significant central canal or neural foraminal stenosis. The C4-5 disc space level demonstrates mild to moderate bilateral facet arthrosis. There is no significant central canal or neural foraminal stenosis. The C5-6 disc space level is partially obscured by postsurgical artifact. There is no significant central canal or neural foraminal stenosis. The C6-7 disc space level is partially obscured by postsurgical artifact. There is posterior laminectomy at the midline. There is no significant central canal or neural foraminal stenosis. The C7-T1 disc space level is obscured by postsurgical artifact. There is no significant central canal or neural foraminal stenosis. IMPRESSION: Status post corpectomy with anterior fusion from C3 through C6. There is solid bony contiguity at the intervening disc spaces. Status post posterior decompression and laminectomy at C6-7. Bilateral spinal rods and facet screws are identified from C5 through T1. Mild central canal narrowing at C2-3 secondary to bulging disc and posterior marginal spurring. There is some effacement of the posterior margin spinal cord though no cord edema. No significant neural foraminal narrowing allowing for postsurgical artifact. No acute osseous abnormality. No intrinsic spinal cord abnormality. MACRO: None Signed by: Shahram Cline 07/25/2024 11:03 AM Dictation workstation: [id number] [facility] Work Phone: Radiology Study observation (narrative) [facility] Work Phone: MR Cervical spine WO contras tOrdered By: Booker Cline on 07-25-2024 [facility] Work Phone: XR CERVICAL SPINE COMPLETE 4 -5 VIEWSon 06-21-2024 XR CERVICAL SPINE COMPLETE 4-5 VIEWS Interpreted By: Selina Carlin, STUDY: XR CERVICAL SPINE COMPLETE 4-5 VIEWS; 06/21/2024 9:56 am INDICATION: Signs/Symptoms:neck pain. ACCESSION NUMBER(S): [id number] ORDERING CLINICIAN: SELINA CARLIN FINDINGS: AP lateral flexion-extension x-rays of the cervical spine shows anterior cervical fusion from C3 down through C7. There is posterior instrumentation with screws and rods. Cervical lordosis is maintained. There is mild degenerative changes at C2-3. There is no fractures. There is no soft tissue abnormalities. There is no instability. Signed by: Selina Carlin 06/21/2024 10:00 AM Dictation workstation: [id number] [facility] XR Cervical spine 4 or 5 Vie wson 06-21-2024 Interpreted By: Selina Masters, STUDY: XR CERVICAL SPINE COMPLETE 4-5 VIEWS; 06/21/2024 9:56 am INDICATION: Signs/Symptoms:neck pain. ACCESSION NUMBER(S): [id number] ORDERING CLINICIAN: SELINA CARLIN FINDINGS: AP lateral flexion-extension x-rays of the cervical spine shows anterior cervical fusion from C3 down through C7. There is posterior instrumentation with screws and rods. Cervical lordosis is maintained. There is mild degenerative changes at C2-3. There is no fractures. There is no soft tissue abnormalities. There is no instability. Signed by: Selina Carlin 06/21/2024 10:00 AM Dictation workstation: [id number] [facility] Selina Carlin MD - 06/21/2024 Interpreted By: Selina Carlin, STUDY: XR CERVICAL SPINE COMPLETE 4-5 VIEWS; 06/21/2024 9:56 am INDICATION: Signs/Symptoms:neck pain. ACCESSION NUMBER(S): [id number] ORDERING CLINICIAN: SELINA CARLIN FINDINGS: AP lateral flexion-extension x-rays of the cervical spine shows anterior cervical fusion from C3 down through C7. There is posterior instrumentation with screws and rods. Cervical lordosis is maintained. There is mild degenerative changes at C2-3. There is no fractures. There is no soft tissue abnormalities. There is no instability. Signed by: Selina Carlin 06/21/2024 10:00 AM Dictation workstation: [id number] [facility] Work Phone: [facility] Work Phone: Radiology Study observation (narrative) [facility] Work Phone: COMPREHENSIVE METABOLIC PANE [facility] 11-02-2023 Albumin [Mass/Vol] 4.2 g/dL Normal 3.2-5.2 [facility] Comment on above: Order Comment: [facility] Services has implemented the eGFR calculation approach that does not have a coefficient for race that conforms to the NKF-ASN Task Force Recommendations. Performed By: #### 4 [id number] #### [facility] LAB [address] [place], [place] [address] Hiro Lomeli M.D. [id number] ALP [Catalytic activity/Vol] 96 U/L Normal 40-150 [facility] Comment on above: Order Comment: [facility] Services has implemented the eGFR calculation approach that does not have a coefficient for race that conforms to the NKF-ASN Task Force Recommendations. Performed By: #### 4 [id number] #### LAB [address] [place] [address] Hiro Lomeli M.D. [id number] ALT [Catalytic activity/Vol] 21 U/L Normal 0-50 U/L [facility] Comment on above: Order Comment: [facility] Services has implemented the eGFR calculation approach that does not have a coefficient for race that conforms to the NKF-ASN Task Force Recommendations. Performed By: #### 4 [id number] #### LAB [address] [place] [address] Hiro Lomeli M.D. [id number] Anion gap [Moles/Vol] 13 mmol/L Normal 10-20 [facility] Comment on above: Order Comment: [facility] Services has implemented the eGFR calculation approach that does not have a coefficient for race that conforms to the NKF-ASN Task Force Recommendations. Performed By: #### 4 [id number] #### LAB [address] [place] [address] Hiro Lomeli M.D. [id number] AST [Catalytic activity/Vol] 26 U/L Normal 0-50 U/L [facility] Comment on above: Order Comment: [facility] Laboratory [facility] has implemented the eGFR calculation approach that does not have a coefficient for race that conforms to the NKF-ASN Task Force Recommendations. Performed By: #### 4 [id number] #### LAB [address] [place] [address] Hiro Lomeli M.D. [id number] Bilirubin [Mass/Vol] 0.5 mg/dL Normal 0.0-1.3 [facility] Comment on above: Order Comment: [facility] Services has implemented the eGFR calculation approach that does not have a coefficient for race that conforms to the NKF-ASN Task Force Recommendations. Performed By: #### 4 [id number] #### LAB [address] [place] [address] Hiro Lomeli M.D. [id number] Calcium [Mass/Vol] 9.6 mg/dL Normal 8.4-10.2 [facility] Comment on above: Order Comment: [facility] has implemented the eGFR calculation approach that does not have a coefficient for race that conforms to the NKF-ASN Task Force Recommendations. Performed By: #### 4 [id number] #### LAB [address] [place], [place] [address] Hiro Lomeli M.D. [id number] Chloride [Moles/Vol] 106 mmol/L Normal 98-108 [facility] Comment on above: Order Comment: [facility] Laboratory [facility] has implemented the eGFR calculation approach that does not have a coefficient for race that conforms to the NKF-ASN Task Force Recommendations. Performed By: #### 4 [id number] #### LAB [address] [place] [address] Hiro Lomeli M.D. [id number] Creatinine [Mass/Vol] 1.32 mg/dL High 0.80-1.30 [facility] Comment on above: Order Comment: [facility] Laboratory [facility] has implemented the eGFR calculation approach that does not have a coefficient for race that conforms to the NKF-ASN Task Force Recommendations. Performed By: #### 4 [id number] #### LAB [address] [place] [address] Hiro Lomeli M.D. [id number] EGFR 59 mL/min/1.73 m2 Low >=60 [facility] Comment on above: Order Comment: [facility] Laboratory [facility] has implemented the eGFR calculation approach that does not have a coefficient for race that conforms to the NKF-ASN Task Force Recommendations. Result Comment: Cande mated GFR was calculated using the 2020 CKD-EPI creatinine equation. Performed By: #### 4 6176 #### LAB [address] [place] [id number] Hiro Lomeli M.D. [id number] Glucose [Mass/Vol] 108 mg/dL High 65-99 [facility] Comment on above: Order Comment: [facility] Laboratory [facility] has implemented the eGFR calculation approach that does not have a coefficient for race that conforms to the NKF-ASN Task Force Recommendations. Performed By: #### 4 [id number] #### LAB [address] [place] [address] Hiro Lomeli M.D. [id number] HCO3 (Bld) [Moles/Vol] 26 mmol/L Normal 21-32 [facility] Comment on above: Order Comment: [facility] Services has implemented the eGFR calculation approach that does not have a coefficient for race that conforms to the NKF-ASN Task Force Recommendations. Performed By: #### 4 6126 #### LAB [address] [place] [address] Hiro Lomeli M.D. [id number] Potassium [Moles/Vol] 4.2 mmol/L Normal 3.5-5.1 [facility] Comment on above: Order Comment: [facility] has implemented the eGFR calculation approach that does not have a coefficient for race that conforms to the NKF-ASN Task Force Recommendations. Performed By: #### 4 6126 #### LAB [address] [place] [address] Hiro Lomeli M.D. [id number] Protein [Mass/Vol] 6.8 g/dL Normal 6.0-8.0 [facility] Comment on above: Order Comment: [facility] Laboratory [facility] has implemented the eGFR calculation approach that does not have a coefficient for race that conforms to the NKF-ASN Task Force Recommendations. Performed By: #### 4 [id number] #### LAB [address] [place] [address] Hiro Lomeli M.D. [id number] Sodium [Moles/Vol] 141 mmol/L Normal 135-145 [facility] Comment on above: Order Comment: [facility] has implemented the eGFR calculation approach that does not have a coefficient for race that conforms to the NKF-ASN Task Force Recommendations. Performed By: #### 4 6126 #### LAB [address] [place] [id number] Hiro Lomeli M.D. [id number] Urea nitrogen [Mass/Vol] 26 mg/dL High 8-25 [facility] Comment on above: Order Comment: [facility] Services has implemented the eGFR calculation approach that does not have a coefficient for race that conforms to the NKF-ASN Task Force Recommendations. Performed By: #### 4 6126 #### [facility] [address] [place] [address] Hiro Lomeli M.D. [id number] Urea nitrogen/Creatinine [Mass ratio] 19.7 mg/mg Normal 10.0-20.0 [facility] Comment on above: Order Comment: [facility] Services has implemented the eGFR calculation approach that does not have a coefficient for race that conforms to the NKF-ASN Task Force Recommendations. Performed By: #### 4 6126 #### [facility] [address] [place] [address] Hiro Lomeli M.D. [id number] HEMOGLOBIN A1Con 11-02-2023 Glucose [Mass/Vol] 131 mg/dL High 74-114 [facility] Comment on above: Performed By: #### 4 8202 #### [facility] [address] [place] [address] Hiro Lomeli M.D. [id number] HbA1c (Bld) [Mass fraction] 6.2 % High 4.2-5.6 [facility] Comment on above: Performed By: #### 4 8202 #### [facility] [address] [place] [address] Hiro Lomeli M.D. [id number] LIPID PANELon 11-02-2023 Cholesterol [Mass/Vol] 153 mg/dL Normal 100-199 [facility] Comment on above: Performed By: #### 4 6087 #### [facility] [address] [place] [address] Hiro Lomeli M.D. [id number] Cholesterol in HDL [Mass/Vol] 34 mg/dL Low 40-59 [facility] Comment on above: Performed By: #### 4 6087 #### [facility] [address] [place] [address] Hiro Lomeli M.D. [id number] Cholesterol.total/Chol esterol in HDL [Mass ratio] 4.5 {ratio} Normal [facility] Comment on above: Result Comment: Male s Cholesterol/HDL Ratio: Average risk: 5.0 1/2 average risk: 3.4 2 x average risk: 9.6 Performed By: #### 4 6087 #### LAB [address] [place] [address] Hiro Lomeli M.D. [id number] LDL CHOLESTEROL CALCULATED 110 mg/dL Normal 10-130 [facility] Comment on above: Result Comment: [facility] Cholesterol Education Program Guidelines: LDL Cholesterol Optimal: <100 mg/dL Near Optimal/above Optimal: 100-129 mg/dL Borderline High: 130-159 mg/dL High: 160-189 mg/dL Very High: greater than or equal to 190 mg/dL Performed By: #### 4 6087 #### LAB [address] [place] [address] Hiro Lomeli M.D. [id number] NON HDL CHOL 119 mg/dL Normal [facility] Comment on above: Result Comment: [facility] Guidelines: NON HDL Cholesterol Desirable: <130 mg/dL Borderline High: 130-159 mg/dL High: 160-189 mg/dL Very High: > or = 190 mg/dL Performed By: #### 4 6087 #### LAB [address] [place] [address] Hiro Lomeli M.D. [id number] Triglyceride [Mass/Vol] 43 mg/dL Normal 30-150 [facility] Comment on above: Performed By: #### 4 6087 #### LAB [address] [place] [address] Hiro Lomeli M.D. [id number] XR Hand - left 3 Viewson 1. 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 MACRO: None. Signed by: Vanesa Diamond 07/13/2023 6:35 PM Dictation workstation: [id number] [facility] Interpreted By: Vanesa Wild, STUDY: Left hand, 3 views. INDICATION: Signs/Symptoms:PAIN IN THUMB. COMPARISON: None. ACCESSION NUMBER(S): [id number] ORDERING CLINICIAN: OPAL ALLEN FINDINGS: No acute fracture or malalignment. 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 Soft tissues are within normal limits. [facility] Vanesa Diamond MD - 07/13/2023 Interpreted By: Vanesa Diamond, STUDY: Left hand, 3 views. INDICATION: Signs/Symptoms:PAIN IN THUMB. COMPARISON: None. ACCESSION NUMBER(S): [id number] ORDERING CLINICIAN: OPAL ALLEN FINDINGS: No acute fracture or malalignment. 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 Soft tissues are within normal limits. IMPRESSION: 1. 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 MACRO: None. Signed by: Vanesa Diamond 07/13/2023 6:35 PM Dictation workstation: [id number] [facility] Work Phone: XR Hand - left 3 ViewsOrdere d By: Vanesa Dimaond on 07-13-2023 [facility] Work Phone: XR Hand - left 3 Viewson Radiology Study observation (narrative) [facility] Work Phone: Basic Metabolic Panelon -0 Anion gap 12 mmol/L Normal 7-16 [facility] Calcium 9.0 mg/dL Normal 8.6-10.2 [facility] Chloride 100 mmol/L Normal 98-107 [facility] CO2 24 mmol/L Normal 22-29 [facility] Creatinine 1.1 mg/dL Normal 0.7-1.2 [facility] eGFR (black) mL/min/{1.73_m2} Normal [facility] eGFR (non-black) mL/min/{1.73_m2} Normal >=60 [facility] Comment on above: Result Comment: Drain Tile Press Operator art Kidney Disease: less than 60 ml/min/1.73 sq.m. Kidney Failure: less than 15 ml/min/1.73 sq.m.Results valid for patients 18 years and older. Glucose mass conc 160 mg/dL High 74-109 [facility] Potassium molar conc 4.8 mmol/L Normal 3.5-5.0 [facility] Sodium 136 mmol/L Normal 132-146 [facility] Urea nitrogen 16 mg/dL Normal 8-23 [facility] CBC With Platelet No Differe ntialon 07-19-2017 Erythrocyte distribution width Auto Ratio (RBC) 12.8 fL Normal 11.5-15.0 [facility] Erythrocytes (RBC) 4.49 E12/L Normal 3.80-5.80 [facility] Hematocrit (HCT) 39.7 % Normal 37.0-54.0 [facility] Hemoglobin mass conc (Bld) 13.5 g/dL Normal 12.5-16.5 [facility] MCH 30.1 pg Normal 26.0-35.0 [facility] MCHC mass conc (RBC) 34.0 % Normal 32.0-34.5 [facility] MCV 88.4 fL Normal 80.0-99.9 [facility] Platelet mean volume (PMV) 10.1 fL Normal 7.0-12.0 [facility] Platelets 365 E9/L Normal 130-450 [facility] WBC (Leukocytes) 14.3 E9/L High 4.5-11.5 [facility] Surgical Specimenon 07-19-19 18 Surgical Specimen HUMILITY OF ANUPAMA DOLORES [facility] [id number] [place] [address] CORRECTED SURGICAL PATHOLOGY REPORTNAME: SUNG HOBBS Date of 07/18/2017 Collection:Medical Record [id number] Date of 07/19/2017Number: Receipt:Age: 61 Y Sex: M Date 08/01/2017 12:53 Reported:Date Of : 1955 Date 08/01/2017 12:53 Revised:Financial [id number] Admitting HARPREET OCONNORNumber: Physician:Patient EL Ordering HARPREET Nelsoncation: Physician:Accession Number: [id number] FOR REVISION:This report is revised by SAM on 08/01/2017 in order to correct the dateof collection from 07/19/2017 to 07/18/2017. The FINAL DIAGNOSIS remainsUNCHANGED. Case originally reported on 07/21/2017.Diagnosis:Disc, L4-5, excision: Disc material with degenerative changeBenign bone LIDIA THOMPSON M.D. (Electronic Signature)Specimen Submitted:DISC MATERIAL, INTERVERTEBRAL DISC, L4-5Clinical Notes: Procedure: Left sided L4-5 transforaminal lumbarinterbody fusion with posterior lateral instrumental and aspiration ofiliac crestPreoperative Dx: L4-5, DDD anterior left lumbar radiculopathyMicroscopic Evaluation: Was performed.Gross Description: Submitted in one part in formalin labeled [facility], L4-5 disc are multiple, variably shaped and sized portions zatroy-uwb-cupi roughened fibrous and fibrocartilaginous tissue whichmeasures 6.5 x 4.3 x 1.3 cm in aggregate dimension. Multiple, apparentfragments of bone are present within this aggregate. Sectioning isunremarkable. Bagman/Woman portions are submitted after milddecalcification. Block label: A1. (SAM:SAM)CODES: 04795; 52551; Department of Pathology Page 1 of 1 Normal [facility] Basic Metabolic Panelon 05-2 Anion gap 15 mmol/L Normal 7-16 [facility] Calcium 9.6 mg/dL Normal 8.6-10.2 [facility] Chloride 97 mmol/L Low 98-107 [facility] CO2 24 mmol/L Normal 22-29 [facility] Creatinine 1.1 mg/dL Normal 0.7-1.2 [facility] eGFR (black) mL/min/{1.73_m2} Normal [facility] eGFR (non-black) mL/min/{1.73_m2} Normal >=60 [facility] Comment on above: Result Comment: Drain Tile Press Operator art Kidney Disease: less than 60 ml/min/1.73 sq.m. Kidney Failure: less than 15 ml/min/1.73 sq.m.Results valid for patients 18 years and older. Glucose mass conc 110 mg/dL High 74-109 [facility] Potassium molar conc 4.4 mmol/L Normal 3.5-5.0 [facility] Sodium 136 mmol/L Normal 132-146 [facility] Urea nitrogen 17 mg/dL Normal 8-23 [facility] CBC With Platelet No Differe ntialon 07-07-2017 Erythrocyte distribution width Auto Ratio (RBC) 12.8 fL Normal 11.5-15.0 [facility] Erythrocytes (RBC) 5.03 E12/L Normal 3.80-5.80 [facility] Hematocrit (HCT) 44.4 % Normal 37.0-54.0 [facility] Hemoglobin mass conc (Bld) 15.2 g/dL Normal 12.5-16.5 [facility] MCH 30.2 pg Normal 26.0-35.0 [facility] MCHC mass conc (RBC) 34.2 % Normal 32.0-34.5 [facility] MCV 88.3 fL Normal 80.0-99.9 [facility] Platelet mean volume (PMV) 10.1 fL Normal 7.0-12.0 [facility] Platelets 361 E9/L Normal 130-450 [facility] WBC (Leukocytes) 9.3 E9/L Normal 4.5-11.5 [facility] Culture, MRSA Screenon 07-07 Culture, MRSA Screen Culture, MRSA Scree n-: Methicillin resistant Staph aureus not isolated Normal [facility] Culture, Urineon 07-07-2017 Culture, Urine Culture, Urine-: Growth not present Normal [facility] Type and Screen Capture 3 sc rn cellon 07-07-2017 ABORH Capture Positive Normal [facility] Antibody 3 Cell Scrn Capture Negative Normal [facility] Comment on above: Result Comment: @ 13:42 by KERRI:SPECIMEN EXPIRES ON: 07/21/17 @ 23:59 Vital Signs Date Time Vital Sign Value Performing Clinician Ted morgan 08-29-2024 13:27-0400 Body height 185.[address] Robin Vasquez MD Work Phone: [facility] 08-29-2024 13:27-0400 Body mass index (BMI) [Ratio] 31.2 kg/m2 Dr. Robin Vasquez MD Work Phone: [facility] 08-29-2024 13:27-0400 Body weight 107.[address] Robin Vasquez MD Work Phone: [facility] 08-29-2024 13:27-0400 Diastolic blood pressure 66 mm[Hg] Dr. Robin Vasquez MD Work Phone: [facility] 08-29-2024 13:27-0400 Heart rate 48 /min Dr. Robin Vasquez MD Work Phone: [facility] 08-29-2024 13:27-0400 Respiratory rate 16 /min Dr. Robin Vasquez MD Work Phone: [facility] 08-29-2024 13:27-0400 Systolic blood pressure 107 mm[Hg] Dr. Robin Vasquez MD Work Phone: [facility] 07-26-2024 12:39-0400 Body weight 107.23 kg Najma Mckenzie MD Work Phone: [place] 07-26-2024 12:39-0400 Diastolic blood pressure 82 mm[Hg] Najma Mckenzie MD Work Phone: [place] 07-26-2024 12:39-0400 Heart rate 65 /min Najma Mckenzie MD Work Phone: [place] 07-26-2024 12:39-0400 SaO2% (BldA) [Mass fraction] 92 % Najma Mckenzie MD Work Phone: [place] 07-26-2024 12:39-0400 Systolic blood pressure 133 mm[Hg] Najma Mckenzie MD Work Phone: [place] 06-20-2024 13:57-0400 Body height 182.9 cm Selina Nichole DO Work Phone: [facility] 06-20-2024 13:57-0400 Body mass index (BMI) [Ratio] 31.79 kg/m2 Selina Nichole DO Work Phone: [facility] 06-20-2024 13:57-0400 Body temperature 98.4 [degF] Selina Yei DO Work Phone: [facility] 06-20-2024 13:57-0400 Body weight 106.32 kg Selina Nichole DO Work Phone: [facility] 06-20-2024 13:57-0400 Diastolic blood pressure 78 mm[Hg] Selina Dayanara DO Work Phone: [facility] 06-20-2024 13:57-0400 Heart rate 57 /min Selina Dayanara DO Work Phone: [facility] 06-20-2024 13:57-0400 SaO2% (BldA) [Mass fraction] 98 % Selina Dayanara DO Work Phone: [facility] 06-20-2024 13:57-0400 Systolic blood pressure 135 mm[Hg] Selina Pifredrick DO Work Phone: [facility] 07-12-2023 14:27-0400 Body height 185.4 cm Opal CORREA Work Phone: [facility] 07-12-2023 14:27-0400 Body mass index (BMI) [Ratio] 29.03 kg/m2 Opal Allen MEDICAL TECHNOLOGIST [employer] Work Phone: [facility] 07-12-2023 14:27-0400 Body weight 99.79 kg Opal Allen MEDICAL TECHNOLOGIST [employer] Work Phone: [facility] Encounters Encounter Date Encounter Type Care Provider Facility Start: 09-26-2024 Encounter for other preprocedural examination Robin Vasquez [facility] Start: 09-21-2024 Non-patient / Non-visit Dr. Calvin saucedo MD -[facility] Work Phone: Start: 09-21-2024 End: 09-21-[address] Robin Vasquez MD Work Phone: -Pulmonary Services/Neurology Start: 09-21-2024 End: 09-21-[address] Robin Vasquez MD -Pulmonary Services/Neurology Work Phone: Start: 09-20-2024 End: 09-21-2024 ambulatory [facility] Start: 09-17-2024 End: 09-17-2024 ambulatory [facility] Start: 09-13-2024 End: 09-13-2024 ambulatory [facility] Start: 09-10-2024 End: 09-10-2024 ambulatory LAVERN CAMARGO [facility] Start: 09-06-2024 End: 09-06-2024 ambulatory [facility] Start: 09-03-2024 End: 09-03-2024 ambulatory [facility] Start: 08-30-2024 End: 08-30-2024 ambulatory [facility] Start: 08-29-2024 End: 08-29-[address] Eric Srinivasan MD -[facility] Work Phone: Start: 08-29-2024 End: 08-29-[address] Robin Vasquez MD Work Phone: -[facility] Start: 08-28-2024 End: 08-28-2024 ambulatory [facility] [facility] Start: 08-20-2024 End: 08-20-2024 ambulatory [facility] Start: 08-14-2024 End: 08-14-2024 Office outpatient visit 15 minutes [facility] PA-C Work Phone: [facility] Comment on above: Cervical radiculopat hy (Primary Dx) Start: 08-14-2024 End: 08-14-2024 ambulatory [facility] Ambulatory Start: 08-12-2024 End: 08-13-2024 Follow-up encounter Najma Mckenzie MD Work Phone: Pulmonary Medicine Start: 08-10-2024 End: 08-10-2024 ambulatory NAJMA MCKENZIE Facility:[facility] Start: 08-08-2024 End: 08-08-[address] Robin Vasquez MD Work Phone: -Cat Scan [facility] Start: 08-08-2024 End: 08-08-[address] Robin Vasquez MD -Cat Scan [facility] Work Phone: Start: 08-08-2024 End: 08-08-2024 ambulatory Robin Vasquez Facility:[facility] Start: 07-26-2024 End: 07-26-2024 Patient encounter procedure Najma Mckenzie MD Work Phone: Pulmonary Medicine Comment on above: Asthma-COPD overlap syndrome (HCC) (Primary Dx); Post-nasal drip; JUAN on CPAP Start: 07-26-2024 End: 07-27-2024 ambulatory Najma Mckenzie MD Work Phone: Pulmonary Medicine Comment on above: Next appt Start: 07-25-2024 End: 07-25-2024 Telephone encounter Najma Mckenzie MD Work Phone: Pulmonary Medicine Comment on above: Appointment Start: 07-25-2024 End: 07-25-2024 Subsequent hospital visit by physician Jigna Thompson Mri [address] [facility] Medical Office Building Comment on above: Cervical radiculopat hy Start: 07-25-2024 End: 07-25-2024 ambulatory [facility] Start: 06-21-2024 End: 06-21-2024 Office outpatient new 45 minutes [facility] PA-C Work Phone: [facility] Comment on above: Cervical radiculopat hy (Primary Dx) Start: 06-21-2024 End: 06-21-2024 ambulatory [facility] Ambulatory Start: 06-20-2024 End: 06-20-2024 ambulatory [facility] Ambulatory Start: 06-20-2024 End: 06-20-2024 Office outpatient new 45 minutes Selina Nichole DO Work Phone: [facility] Comment on above: Obstructive sleep ap vilma (Primary Dx); Seasonal allergies Start: 11-02-2023 End: 11-06-2023 ambulatory [facility] Start: 07-15-2023 End: 07-19-2023 ambulatory Provider Not In System [facility] Comment on above: History of left knee replacement (Primary Dx) Start: 07-12-2023 End: 07-12-2023 Office outpatient new 30 minutes Opal Allen MEDICAL TECHNOLOGIST PRN-SILK SOAKER Work Phone: [facility] Comment on above: Trigger finger of le ft thumb (Primary Dx); Pain of left thumb Start: 07-12-2023 End: 07-12-2023 Subsequent hospital visit by physician Gumaro [id number] [facility] Comment on above: Pain of left thumb Start: 07-01-2023 End: 07-05-2023 ambulatory Provider Not In System [facility] Comment on above: History of left knee replacement (Primary Dx) Start: 06-24-2023 End: 06-28-2023 ambulatory Provider Not In System [facility] Comment on above: History of left knee replacement Start: 06-23-2023 Transcribe Orders Provider Not In Sy [facility] Comment on above: History of left knee replacement (Primary Dx) Start: 07-19-2017 End: 07-22-2017 Ambulatory HARPREET Dotson [facility] Start: 07-19-2017 End: 07-22-2017 Ambulatory HARPREET Dotson [facility] Start: 07-07-2017 End: 07-10-2017 Ambulatory HARPREET Dotson [facility] Start: 07-07-2017 End: 07-10-2017 Ambulatory HARPREET Dotson [facility] Procedures Date Procedure Procedure Detail Performing Clinician Start: 08-08-[address] Robin Vasquez MD Work Phone: Start: 07-25-2024 Mri spinal canal cervical w/o contrast matrl Maxwell [employer] Work Phone: Start: 11-02-2023 Lipid 1996 panel - Serum or Plasma Maxwell Santana PA-C Work Phone: Start: 07-12-2023 Radex hand minimum 3 views Opal Allen MEDICAL TECHNOLOGIST [employer]SILK SOAKER Work Phone: Start: 06-24-2023 History of operative procedure on knee History of left knee replacement Provider Not In System Start: 07-19-2017 SURGICAL PATHOLOGY HARPREET OCONNOR Start: 07-19-2017 Basic metabolic panel calcium total HARPREET OCONNOR Start: 07-19-2017 Blood count complete automated HARPREET OCONNOR Start: 07-07-2017 Basic metabolic panel calcium total HARPREET OCONNOR Start: 07-07-2017 Blood count complete automated HARPREETANUP OCONNOR Start: 07-07-2017 Cul prsmptv pthgnc organism scrn w/colony estimj HARPREETANUP OCONNOR Start: 07-07-2017 TYPE AND SCREEN HARPREET OCONNOR Start: 07-07-2017 Culture bacterial quanttative colony count urine HARPREET OCONNOR Start: 04-14-2016 Colonoscopy Marissa Alonso PT History of operative procedure on knee History of left knee replacement Provider Not In System History of operative procedure on knee History of left knee replacement Provider Not In System History of operative procedure on knee History of left knee replacement Provider Not In System Plan of Treatment Date Care Activity Detail Author Start: 11-16-2030 RSV Vaccine (1 - 1-d ose 75+ series) RSV Vaccine (1 - 1-dose 75+ series) [place] Start: 11-01-2028 Lipid panel [facility] Start: 11-01-2026 Diabetes Screening Diabetes Screenin g [place] Start: 04-14-2026 Screening for malign ant neoplasm of colon [facility] Start: 02-17-2025 Medicare Annual Well ness Visit Medicare Annual Wellness Visit (AWV) [facility] Start: 11-01-2024 Hemoglobin A1c measurement Dana betes: Hemoglobin A1C [facility] Start: 10-15-2024 Influenza vaccination [facility] Start: 09-28-2024 End: 09-28-2024 Patient encounter procedure 09/28/2024 1:00 PM EDT Office Visit Pulmonary Medicine [address] [place] [address] Fina Lee APRN.SILK SOAKER [address] [place] [address] copd Pulmonary Medicine Comment on above: copd Start: 09-28-2024 End: 09-28-2024 ambulatory PULM LAB [facility] Comment on above: copd Start: 08-29-2024 Evaluation of diagno stic study results [facility] Start: 08-14-2024 End: 08-14-2024 Patient encounter procedure 08/14/2024 11:00 AM EDT Office Visit [facility] [address] [place] [address] Maxwell Santana, PAThangC [address] [facility], [address] [place] [id number] [facility] Start: 08-10-2024 End: 08-10-2024 Patient encounter procedure 08/10/2024 11:20 AM EDT Office Visit Cardiology [address] [place] [address] Asthma-COPD overlap syndrome (HCC) [J44.89] Cardiology Comment on above: Asthma-COPD overlap syndrome (HCC) [J44.89] Start: 07-26-2024 End: 07-26-2024 Patient encounter procedure 07/26/2024 12:45 PM EDT Office Visit Pulmonary Medicine [address] [place] [address] Najma Mckenzie MD [address] [place] [place] [address] COPD SLEEP APNEA ( PT DECLINED PRE TESTING STATING JUST RECENTLY HAD BRENDA W DILATOR IF OBS/CHEST XRAYS AND LUNG DIF/PT WILL BRING TO VISIT AND WILL FAX. AWARE [place] Pulmonary Medicine Comment on above: COPD SLEEP APNEA ( P T DECLINED PRE TESTING STATING JUST RECENTLY HAD BRENDA W DILATOR IF OBS/CHEST XRAYS AND LUNG DIF/PT WILL BRING TO VISIT AND WILL FAX. AWARE [place] Start: 06-21-2024 End: 06-21-2025 MR Cervical spine WO contrast MR cervical spine wo IV contrast Imaging Routine Cervical radiculopathy Expected: 06/21/2024 (Approximate), Expires: 06/21/2025 [facility] Work Phone: Comment on above: Expected: 06/21/2024 (Approximate), Expires: 06/21/2025 Start: 02-15-2024 Advance Directive Discussion Advance Directive Discussion [place] Start: 02-15-2024 Medicare Advantage A nnual Wellness Visit Medicare Advantage Annual Wellness Visit [place] Start: 10-16-2023 COVID-19 Vaccine ( season) COVID-19 Vaccine ( season) [facility] Start: 10-16-2023 Influenza vaccination Influenz a Vaccine (Season Ended) [facility] Start: 08-05-2023 End: 08-05-2023 ambulatory 08/05/2023 10:45 AM EDT Treatment [facility] [address] [place] [id number] System, Provider Not In Marissa Alonso PT [facility] Start: 07-29-2023 End: 07-29-2023 ambulatory 07/29/2023 10:45 AM EDT Treatment [facility] [address] [place] [address] System, Provider Not In Marissa Alonso PT [facility] Start: 07-22-2023 End: 07-22-2023 ambulatory [facility] Start: 07-15-2023 End: 07-15-2023 ambulatory 07/15/2023 10:45 AM EDT Treatment [facility] [address] [place] [address] System, Provider Not In Marissa Alonso PT [facility] Start: 07-12-2023 End: 07-11-2024 XR Hand - left 3 Views [facility] Work Phone: Comment on above: Expected: 07/12/2023 , Expires: 07/11/2024 Start: 07-08-2023 End: 07-08-2023 ambulatory 07/08/2023 10:45 AM EDT Treatment [facility] [address] [place] [phone] System, Provider Not In Robin Dsouza PTA [facility] Start: 07-01-2023 End: 07-01-2023 ambulatory 07/01/2023 10:45 AM EDT Treatment [facility] [address] [place] [address] System, Provider Not In Marissa Alonso, ANKITA Discharge Disposition: Home [facility] Start: 06-24-2023 End: 06-24-2023 ambulatory 06/24/2023 2:30 PM EDT Evaluation [facility] [address] [place] [phone] System, Provider Not In Marissa Alonso, PT Discharge Disposition: Home [facility] Start: 10-15-2022 COVID-19 Vaccine ( season) COVID-19 Vaccine ( - season) [facility] Start: 12-16-2020 Pneumococcal Vaccine : Age 65+ (2 of 2 - PPSV23 or PCV20) Pneumococcal Vaccine: Age 65+ (2 of 2 - PPSV23 or PCV20) [facility] Start: 11-16-2020 Fall risk assessment Falls Risk Asse ssment [facility] Start: 11-16-2020 Pneumococcal Vaccine : 65+ Years (1 of 1 - PCV) Pneumococcal Vaccine: 65+ Years (1 of 1 - PCV) [facility] Start: 11-16-2020 Pneumococcal Vaccine : Age 65+ (1 of 1 - PCV) Pneumococcal Vaccine: Age 65+ (1 of 1 - PCV) [facility] Start: 02-11-2020 Pneumococcal vaccination [facility] Start: 2015 RSV High Risk: (Elde rly (60+) or Population) (1 - Risk 60-74 years 1-dose series) RSV High Risk: (Elderly (60+) or Population) (1 - Risk 60-74 years 1-dose series) [facility] Start: 2015 RSV patient s and/or patients aged 60+ years (1 - 1-dose 60+ series) RSV patients and/or patients aged 60+ years (1 - 1-dose 60+ series) [facility] Start: 11-16-2005 Administration of he rpes zoster vaccine Zoster Vaccines (1 of 2) [facility] Start: 11-16-2005 Pneumococcal Vaccine : 50+ (1 of 1 - PCV) Pneumococcal Vaccine: 50+ (1 of 1 - PCV) [place] Start: 11-16-2005 Screening for malign ant neoplasm of colon Flexible sigmoidoscopy [facility] Start: 11-16-2005 Shingrix Vaccine (1 of 2) Harris grix Vaccine (1 of 2) [place] Start: 11-16-2005 Zoster Vaccines (1 of 2) Zoste r Vaccines (1 of 2) [facility] Start: 11-16-2000 Prostate specific an tigen measurement Prostate Cancer Screening Discussion [place] Start: 11-16-2000 Screening for malign ant neoplasm of colon [place] Start: 11-16-1977 DTaP/Tdap/Td Vaccine s (1 - Tdap) DTaP/Tdap/Td Vaccines (1 - Tdap) [facility] Start: 11-16-1974 Urine microalbumin profile DTa P,Tdap,Td Vaccine (1 - Tdap) [place] Start: 11-16-1973 Anxiety Screening Anxiety Screening [place] Start: 11-16-1973 Depression Screening Depression Scre ening [place] Start: 11-16-1973 Diabetes mellitus screening Diabetes Screening [facility] Start: 11-16-1973 Hepatitis C screening Hepatitis C Sc reening [facility] Start: 1967 Depression screening using PHQ-9 (Patient Health Questionnaire 9) score Depression Screening (PHQ-2/9) [facility] Start: 11-16-1958 History and physical examination, annual for health maintenance Wellness Visit [facility] Start: 1955 Lipid panel Lipid Panel [facility] Start: 1955 Medicare Annual Well ness Visit Medicare Annual Wellness Visit (AWV) [facility] Start: 1955 Prostate specific an tigen measurement PSA Level [facility] Start: 1955 Screening for malign ant neoplasm of colon [facility] Start: 1955 Tetanus vaccination Tetanus: Every 1 0yrs [facility] CT for calcium scori ng WO contrast and CTA W contrast IV Heart and coronary arteries [facility] End: 07-26-2025 Echocardiography ECHO Cardiology Routine 1 Occurrences starting 07/26/2024 until 07/26/2025 [facility] Work Phone: Comment on above: 1 Occurrences starti ng 07/26/2024 until 07/26/2025 Hemoglobin A1c/Hemoglobin.total in Blood [facility] Hepatic function panel [place] [facility] Home O2 eval (desatu ration screen) Home O2 eval (desaturation screen) Respiratory Care Routine Obstructive sleep apnea Ordered: 06/27/2024 [facility] Work Phone: Comment on above: Ordered: 06/27/2024 Lipid 1996 panel - S mercedes or Plasma [facility] End: 08-25-2025 NITRIC OXIDE, EXHALED NITRIC OXIDE, EXHALED PFT Routine Asthma-COPD overlap syndrome (HCC) 1 Occurrences starting 07/26/2024 until 08/25/2025 [place] Comment on above: 1 Occurrences starti ng 07/26/2024 until 08/25/2025 End: 08-25-2025 OXIMETRY WITH AMBULATION OXIMETRY WITH AMBULATION PFT Routine Asthma-COPD overlap syndrome (HCC) 1 Occurrences starting 07/26/2024 until 08/25/2025 [place] Comment on above: 1 Occurrences starti ng 07/26/2024 until 08/25/2025 End: 08-25-2025 SPIROMETRY WITH DILATOR IF OBSTRUCTED SPIROMETRY WITH DILATOR IF OBSTRUCTED PFT Routine Asthma-COPD overlap syndrome (HCC) 1 Occurrences starting 07/26/2024 until 08/25/2025 [place] Comment on above: 1 Occurrences starti ng 07/26/2024 until 08/25/2025 Thyroid stimulating hormone measurement [facility] Payers Date Payer Category Payer Self-pay 2023 Medicare [id number] 2023 Medicare (Managed Care) 1.2. [id number] 315 2023 Medicare [id number] 1955 Unknown [id number] 2.16. 840.1.096749.3.579.2.903 1955 Unknown [id number] 2.16. 840.1.038523.3.579.2.903 1955 Unknown [id number] 2.16. 840.1.012858.3.579.2.903 1955 Unknown [id number] 2.16. 840.1.838034.3.579.2.903 1955 Unknown [id number] 2.16.8 40.1.620951.3.579.2.1246 1955 Unknown [id number] 2.16. 840.1.816981.3.579.2.1244 1955 Unknown [id number] 2.16. 840.1.794980.3.579.2.1244 1955 Unknown [id number] 2.16. 840.1.383016.3.579.2.1244 1955 Unknown [id number] 2.16. 840.1.224729.3.579.2.1244 1955 Unknown [id number] 2.16.8 40.1.981706.3.579.2.1243 1955 Unknown [id number] 2.16.8 40.1.466007.3.579.2.1243 1955 Unknown [id number] 2.16.8 40.1.892987.3.579.2.1243 1955 Unknown [id number] 2.16.8 40.1.207984.3.579.2.1243 1955 Unknown [id number] 2.16.8 40.1.521999.3.579.2.1243 1955 Unknown [id number] 2.16.8 40.1.967850.3.579.2.1243 1955 Unknown [id number] 2.16.8 40.1.503161.3.579.2.1243 1955 Unknown [id number] 2.16.8 40.1.305160.3.579.2.1243 1955 Unknown [id number] 2.16.8 40.1.443445.3.579.2.1243 Unknown [id number] 2.16.8 40.1.985608.3.579.2.462 Unknown [id number] 2.16.8 40.1.806553.3.579.2.462 Unknown [id number] 2.16.8 40.1.871878.3.579.2.462 Unknown [id number] 2.16.8 40.1.481389.3.579.2.462 Social History Date Type Detail Facility Tobacco smoking status INIS Tobacco smoking consumption unknown [facility] Start: 1955 Sex Assigned At Not on file [facility] Start: 07-12-2023 End: 06-20-2024 Gender identity Not on file [facility] Start: 07-12-2023 End: 08-23-2024 Tobacco smoking status NHIS Never smoked tobacco [facility] Work Phone: Start: 07-12-2023 End: 06-20-2024 Tobacco use and exposure Smokeless tobacco non-user [facility] Work Phone: Start: 07-12-2023 End: 06-20-2024 Alcoholic beverage intake Lifetime non-drinker (finding) [facility] Work Phone: Start: 07-02-2023 End: 07-25-2024 Exposure to SARS-CoV-2 (event) Not sure [facility] Start: 07-12-2023 End: 06-20-2024 History of Social function [facility] Work Phone: Start: 07-26-2024 End: 08-14-2024 Alcoholic beverage intake Current drinker of alcohol (finding) [place] National Score (1-100), lower number is lower risk 58 [place] Start: 07-26-2024 Alcohol Comment Evening wine 3oz [facility] Start: 1955 Sex Assigned At Male [facility] NEGATED: Highlighted rowStart: NINF History of tobacco use Passive smoker [facility] Work Phone: Clinical Notes 06-24-2023 to 08-29-2024 Note Date & Type Note Facility 08-29-2024 Evaluation note Diagnosis Onset Date Resolution Chest pain acute August 29 1:14pm Hypercholesterolemia acute August 29, 2024 1:14pm [facility] Work Phone: 1(698) 841-975107-01-2025 History of Present illness Narrative* Maxwell Santana PA-C - 08/14/2024 11:00 AM EDT Established patient follow-up cervical MRI. Patient was having neck pain and some right trapezius pain especially on certain movements. He has had cervical corpectomy C3-7. Lateral mass screws C5-T1.No bowel or bladder complaints no saddle anesthesia. Physical exam: Well-nourished, well kept. No lymphangitis or lymphadenopathy in the examined extremities. Good perfusion to the upper extremities bilaterally. Radial pulses 2+. Capillary refill to the digits brisk. No distal edema. Patient ambulating with no major difficulty. Some decreased range of motion flexion- extension rotation of cervical spine good strength no instability moving upper extremities without any difficulty motor strength intact. No redness, or lesions on the upper extremities bilaterally. Patient neurologically intact MRI: MRI was reviewed report reviewed as well showing a central bulge at C3-3. Causing some mild narrowing of the central canal. And the foramen. But no major foraminal stenosis. There are some degenerative changes in the posterior aspect at the C2-3 level. The levels of surgery I do not see any neural impingement. I do not see any degree of severe central stenosis or foraminal stenosis. Assessment: The patient with some neck pain and some symptoms especially returns as had a call sometrapezius type pain. He says it definitely feels nerve related. He kind of knows his body and is when something is feels nerve related. I explained to him due to that the big surgeries that he had heis going to have some decreased range of motion some scar tissu but I do not see any structurally pinching any nerves. I do not see a surgical indication at this point. Plan: I will order some physical therapy with dry needling and traction. I will do a neurology referral. And he will follow-up as needed documented in this [facility] Work Phone: [phone]) 268-281206-26-2025 Radiology Diagnostic study note [facility] Imaging Services [address] [place], [place] [address] Sinus/Facial Bone MR#: [id number] Acct: [id number] Name: SUNG HOBBS Rep #: [id number] : 1955 M 68 From: Celestina Du MD PCP: GEO REYNAGA Status: REG CLI Study:Sinus/Facial Bone Date of Exam: Exam# [id number] Ordering Dr: Robin Vasquez MD PROCEDURE: SINUS/FACIAL BONE 08/08/2024 REASON FOR EXAM: SINUSITIS TECHNIQUE: SINUS/FACIAL BONE Coronal and Sagittal reconstruction series were provided. One or more dose reduction techniques were used (e.g., Automated exposure control, adjustment of the mA and/or kV according to patient size, use of iterative reconstruction technique). RADIATION DOSE SUMMARY: CTDlvol: 33.06 mGy DLP: 738.8 mGycm COMPARISON: None. FINDINGS: Frontal: Moderate chronic mucosal inflammatory changes of the left frontal sinus. Ethmoid: Moderate chronic mucosal inflammatory changes of the left ethmoid air cells. Minimal chronic mucosal inflammatory changes of the right ethmoid air cells. Sphenoid: Unremarkable. Maxillary: Moderate chronic mucosal inflammatory thickening obliterating of the left maxillary sinus and extending to the corresponding aspect of the left nasal cavity. Turbinates: Mild hypertrophy of the inferior turbinates. Nasal Septum: Mild S shaped nasal septum deviation. Mastoids/Middle Ears: Unremarkable. CT/Sinus/Facial Bone IMPRESSION: Chronic sinusitis. Reading Location: [place] [address] CC: GEO REYNAGA; Dr. Robin Vasquez MD ~ Interior Decorator: Signed [facility]06-12-2025 History of Present illness Narrative* Najma Mckenzie MD - 07/26/2024 12:45 PM EDT Images from the original note were not included. . Respiratory [place] Note Patient name: Sung Hobbs PCP: No primary care provider on file. Referring Physician: Self referral Recording using Gydget software for draft documentation of the visit was discussed with the patient/authorized associate sales representative; all questions welcomed and answered. Patient/authorized associate sales representative agreed to proceed CC: COPD HPI: Sung Hobbs 68 year old male never smoker with PMH significant for obesity, JUAN on CPAP, allergic rhinitis, prostate cancer s/p TURP, history of a diagnosis of asthma presenting for evaluation of obstructive lung disease. Sung reports a sudden onset of dyspnea and cough over the past few months, which has significantly impacted his ability to engage in physical activities such as bicycling and pickleball. 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 He denies any exacerbation of symptoms with changes in weather, suchas heat, humidity, or cold air. He has been using Trelegy for a little over a month, which he finds helpful, and denies any issues with oral sores or tremors. Patient currently denies any wheezing although his states that she could hear him breathing from across the room when this initially started. He was previously diagnosed with asthma approximately 10 years ago but was not prescribed an inhaler at that time. He denies a family history of asthma. His dyspnea has adversely impacted his daily activities. He has had a persistent cough, both productive and non- productive. More prominant in the morning but can occur throughout the day. He has a history of sinus issues and is currently seening an ENT physician, pending allergy assessment. He experiences significant postnasal drainage, particularly in the morning. Sung has been experiencing nocturnal SO,B waking up suddenly between 0300 and 0600, feeling like he cannot breathe, with a racing heart. He uses an oximeter at home and hasrecorded oxygen saturation levels of 91-94%. He is scheduled for an overnight oximetry test by his family doctor, who suspects a potential cardiac component to his symptoms. Sung has a history of sleep apnea and uses a CPAP machine with good compliance. DATA: PFT from [place] 04/18/24: FVC 3.64 L 74% FEV1 2.60 L 69% FEV1/FVC 69% FEF 25-75% 1.46 L 52% No improvement with bronchodilator TLC 6.88 L 89% RV 3.03 L 118% RV/TLC 45% DLCO 28.1 102% Raw 2.75 228% Pulmonary function test show mild obstruction improvement postbronchodilator. Minimal air trapping and normal diffusion Labs: Alpha 1 PiMM Allergy panel normal Imaging / Diagnostic Studies: Chest x-ray performed in [place] 05/2024 report states no abnormality PAST MEDICAL HISTORY Diagnosis Date Obstructive lung disease (HCC) JUAN (obstructive sleep apnea) on CPAP Prostate cancer (HCC) Rhinitis ALLERGIES Allergen Reactions Tree Pollen-Marcelle* Unknown fluticasone prp-sod.chl,bicarb 50 mcg- 0.9 % ksps Use 2 sprays in the nose once daily. azelastine 0.1% nasal spray Use 2 sprays in each nostril two times a day. predniSONE (DELTASONE) 10 mg tablet Take by mouth once daily. baclofen 20 mg tablet 20 mg. ezetimibe (ZETIA) 10 mg tablet Take 10 mg by mouth. Gabapentin 400 mg tab 400 mg. gemfibrozil (LOPID) 600 mg tablet 600 mg. piszxtugbzy-fmznqapmw-gjaqnnmt (TRELEGY ELLIPTA) 200-62.5-25 mcg inhalation powder Inhale 1 puff asinstructed once daily. albuterol HFA (PROVENTIL HFA, VENTOLIN HFA) 90 mcg/actuation inhaler Inhale 2 puffs as instructed every 4 hours as needed. Social History Tobacco Use Smoking status: Never Smokeless tobacco: Never Vaping Use Vaping status: Never Used Substance Use Topics Alcohol use: Yes Comment: Evening wine 3oz Drug use: Not Currently Retired from law enforcement Pets: None FAMILY HISTORY Problem Relation Age of Onset other (DM) Mother Heart disease Mother other (HTN) Mother Heart disease Father MVA PAST SURGICAL HISTORY Procedure Laterality Date BACK SURGERY HX Lumbar and cervical EYE SURGERY HX Lazy eye HERNIA REPAIR HX ORCHIECTOMY SIMPLE RADICAL PROSTATECTOMY REPAIR ROTATOR CUFF,ACUTE Right SEPTOPLASTY TOTAL KNEE REPLACEMENT Left VASECTOMY PMH, Social history, family history and surgical history reviewed and updated in EMR REVIEW OF SYSTEMS: CONSTITUTIONAL: No fevers, chills, nightsweats, unintended weight loss HEENT: Positive nasal congestion/sinus symptoms, postnasal drip. No and headaches EYES: History of eye surgery for lazy eye when he was a child CARDIOVASCULAR: No angina, edema. Palpitations PULM: See HPI GI: No dysphagia/odynophagia, problematic reflux NEURO: No balance problems, peripheral weakness/paresthesias or numbness of concern. MUSC-SKEL: Cervical radiculopathy PSY: No concerns regarding depression INTEGUMENTARY: No new skin changes, rashes or sensitivity PHYSICAL EXAMINATION: BP 133/82 Pulse 65 Wt 236 lb 6.4 oz (107.2kg) SpO2 92% General Appearance: Age-appropriate male, NAD. Skin: Skin color, texture, turgor normal, no suspicious rashes or lesions. Head: Normocephalic, no masses, lesions, tenderness or abnormalities. Eyes: Sclera, conjunctiva normal. Oropharynx: No oral lesions or thrush. Neck: No masses or adenopathy Lungs: Not labored, normal to percussion, no wheezes or crackles. Heart: Regular rate rhythm, no murmurs or gallops. Extremities: No edema or clubbing. Assessment/Plan: 1. Asthma COPD overlap -Clinical history and pulmonary function testing consistent with asthma with COPD -Trelegy has been helpful but has some persistent symptoms. Increased Trelegy dose to 200/25 -Repeat spirometry, exhaled nitric oxide level and ambulation oximetry testing at next visit -Prescribed albuterol to use as needed -Echocardiogram 2. Postnasal drip -Postnasal drip is the etiology for his a.m. cough and mucus production -Pending allergy evaluation and is seeing ENT 3. JUAN on CPAP - Asked patient to have his primary care physician send the results of his overnight oximetry on CPAP to me I spent a total of 70 minutes on the date of the service which included preparing to see the patient, [id number] patient care, completing clinical documentation, obtaining and/or reviewing separately obtained history, performing a medically appropriate examination, ordering medications, tests, or procedures, and independently interpreting results (not separately reported). Najma Mckenzie MD [facility] [place] documented in this encounterCenterville06-12-2025 NoteHNO ID: [id number] Author: NAJMA MCKENZIE MD Service: ? Author Type: Physician Type: Progress Notes Filed: 07/26/2024 15:40 Note Text: . [facility] [place] Note Patient name: Sung Hobbs PCP: No primary care provider on file. Referring Physician: Self referral Recording using Gydget software for draft documentation of the visit was discussed with the patient/authorized associate sales representative; all questions welcomed and answered. Patient/authorized associate sales representative agreed to proceed CC: COPD HPI: Sung Hobbs 68 year old male never smoker with PMH significant for obesity, JUAN on CPAP, allergic rhinitis, prostate cancer s/p TURP, history of a diagnosis of asthma presenting for evaluation of obstructive lung disease. Sung reports a sudden onset of dyspnea and cough over the past few months, which has significantly impacted his ability to engage in physical activities such as bicycling and pickleball. 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 He denies any exacerbation of symptoms with changes in weather, such as heat, humidity, or cold air. He has been using Trelegy for a little over a month, which he finds helpful, and denies any issues with oral sores or tremors. Patient currently denies any wheezing although his states that she could hear him breathing from across the room when this initially started. He was previously diagnosed with asthma approximately 10 years ago but was not prescribed an inhaler at that time. He denies a family history of asthma. His dyspnea has adversely impacted his daily activities. He has had a persistent cough, both productive and non-productive. More prominant in the morning but can occur throughout the day. He has a history of sinus issues and is currently seening an ENT physician, pending allergy assessment. He experiences significant postnasal drainage, particularly in the morning. Sung has been experiencing nocturnal SO,B waking up suddenly between 0300 and 0600, feeling like he cannot breathe, with a racing heart. He uses an oximeter at home and has recorded oxygen saturation levels of 91-94%. He is scheduled for an overnight oximetry test by his family doctor, whosuspects a potential cardiac component to his symptoms. Sung has a history of sleep apnea and uses a CPAP machine with good compliance. DATA: PFT from [facility] 04/18/24: FVC 3.64 L 74% FEV1 2.60 L 69% FEV1/FVC 69% FEF 25-75% 1.46 L 52% No improvement with bronchodilator TLC 6.88 L 89% RV 3.03 L 118% RV/TLC 45% DLCO 28.1 102% Raw 2.75 228% Pulmonary function test show mild obstruction improvement postbronchodilator. Minimal air trapping and normal diffusion Labs: Alpha 1 PiMM Allergy panel normal Imaging / Diagnostic Studies: Chest x-ray performed in [place] 05/2024 report states no abnormality PAST MEDICAL HISTORY Diagnosis Date Obstructive lung disease (HCC) JUAN (obstructive sleep apnea) on CPAP Prostate cancer (HCC) Rhinitis ALLERGIES Allergen Reactions Tree Pollen-Marcelle* Unknown fluticasone prp-sod.chl,bicarb 50 mcg- 0.9 % ksps Use 2 sprays in the nose once daily. azelastine 0.1% nasal spray Use 2 sprays in each nostril two times a day. predniSONE (DELTASONE) 10 mg tablet Take by mouth once daily. baclofen 20 mg tablet 20 mg. ezetimibe (ZETIA) 10 mg tablet Take 10 mg by mouth. Gabapentin 400 mg tab 400 mg. gemfibrozil (LOPID) 600 mg tablet 600 mg. mlvfdpapzfd-aqljytfde-hpvatbci (TRELEGY ELLIPTA) 200-62.5-25 mcg inhalation powder Inhale 1 puff as instructed once daily. albuterol HFA (PROVENTIL HFA, VENTOLIN HFA) 90 mcg/actuation inhaler Inhale 2 puffs as instructed every 4 hours as needed. Social History Tobacco Use Smoking status: Never Smokeless tobacco: Never Vaping Use Vaping status: Never Used Substance Use Topics Alcohol use: Yes Comment: Evening wine 3oz Drug use: Not Currently Retired from law enforcement Pets: None FAMILY HISTORY Problem Relation Age of Onset other (DM) Mother Heart disease Mother other (HTN) Mother Heart disease Father MVA PAST SURGICAL HISTORY Procedure Laterality Date BACK SURGERY HX Lumbar and cervical EYE SURGERY HX Lazy eye HERNIA REPAIR HX ORCHIECTOMY SIMPLE RADICAL PROSTATECTOMY REPAIR ROTATOR CUFF,ACUTE Right SEPTOPLASTY TOTAL KNEE REPLACEMENT Left VASECTOMY PMH, Social history, family history and surgical history reviewed and updated in EMR REVIEW OF SYSTEMS: CONSTITUTIONAL: No fevers, chills, nightsweats, unintended weight loss HEENT: Positive nasal congestion/sinus symptoms, postnasal drip. No and headaches EYES: History of eye surgery for lazy eye when he was a child CARDIOVASCULAR: No angina, edema. Palpitations PULM: See HPI GI: No dysphagia/odynophagia, problematic reflux NEURO: No balance problems, peripheral weakness/paresthesias or numbn (more content not included)...[facility]06-11-2025 Telephone encounter Note* Telephone Encounter - Selma Yanez LPN - 07/25/2024 10:40 AM EDT Patient returned call to PSS line confirming appt is for second opinion COPD. Selma Yanez LPN [place]06-11-2025 Miscellaneous Notes* Telephone Encounter - Selma Yanez LPN - 07/25/2024 10:40 AM EDT Patient returned call to PSS line confirming appt is for second opinion COPD. Selma Yanez LPN * Telephone Encounter - Selma Yanez LPN - 07/25/2024 9:37 AM EDT LMTC to verify reason for visit. Dr. Mckenzie does not manage sleep apnea. Selma Yanez LPN * Telephone Encounter - Selma Yanez LPN - 07/25/2024 9:37 AM EDT ----- Message from Najma Mckenzie MD sent at 07/25/2024 5:04 AM EDT ----- Scheduled for tomorrow. Has JUAN. Non smoker without evidence of COPD. Patient needs to know I do not manage JUAN, so may not be an appropriate visit documented in this encounterCent[place]06-11-2025 Telephone encounter Note * Telephone Encounter - Selma Yanez LPN - 07/25/2024 9:37 AM EDT LMTC to verify reason for visit. Dr. Mckenzie does not manage sleep apnea. Selma Yanez LPN [place]06-11-2025 Telephone encounter Note* Telephone Encounter - Selma Yanez LPN - 07/25/2024 9:37 AM EDT ----- Message from Najma Mckenzie MD sent at 07/25/2024 5:04 AM EDT ----- Scheduled for tomorrow. Has JUAN. Non smoker without evidence of COPD. Patient needs to know I do not manage JUAN, so may not be an appropriate visit [place]05-08-2025 History of Present illness Narrative* Maxwell Santana PA-C - 06/21/2024 10:00 AM EDT New patient to us new to the practice comes to the office complaining of neck pain which started a few weeks ago I believe. 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 He is got neck pain and stiffness into the right side of the neck he is pointing to. Will get some numbness and tingling down both arms. He had prior spine surgeries back in 2002 which was an anterior corpectomy fusion. And then he had posterior approach years later. This was all done at [facility] in [place]. Denies bowel or bladder complaints saddle anesthesia denies recent trauma accidents or falls to cause it. Looked at patient's recent blood work checking a hemoglobin A1c which was 6.2 we looked at primary doctors notes check medication list see if there is any type of statin medication to cause muscular aches and pain or major blood thinners I do not see that he is taking any of those. Physical exam: Well-nourished, well kept. No lymphangitis or lymphadenopathy in the examined extremities. Good perfusion to the extremities 4. Radial and dorsalis pedis pulses 2+. Capillary refill toall 4 digits brisk. No distal edema x 4. Patient ambulating with no major difficulty. Some decreased range of motion flexion-extension rotation lumbar spine and observation to strength no instabilitymoving lower extremity by difficulty able to get from sitting standing without any difficulty. Examination of the upper extremities reveals no point tenderness, swelling, or deformity. Range of motion of the shoulders, elbows, wrists, and fingers are all full without crepitance, instability, or exacerbation of pain. Strength is 5/5 throughout. Patient moving lower extremities without any difficulty motor strength intact no redness, abrasions, or lesions on all 4 extremities, head and neck, or trunk. Patient neurologically intact X-ray x-ray cervical spine taken today and reviewed shows a fusion looks like a cervical corpectomyC3-C7. There is instrumentation lateral mass screws looks like from C5 down to T1 on x-ray. Assessment: This is a patient with neck pain. Get some sensory changes affecting his daily and bodily function. Patient is been using prescription meds gdxc-pme-dbcllmi meds he has not been doing physical therapy exercises. He is got handouts that was given to him from his physical therapist or primary doctors after his surgeries. Been doing these religiously and not helping. Plan: We will try a little steroid see if it helps with his symptoms continue with his muscle relaxant. I gave him a prescription for physical therapy in the [place] area. Also get an MRI cervical spine at her [place] he will follow-up after those films documented in this [facility] Work Phone: 1(725) 673-356805-07-2025 History of Present illness Narrative* Selina Nichole, - 06/20/2024 1:40 PM EDT Subjective Patient ID: Sung Hobbs is a 68 y.o. male who presents for COPD and Sleep Apnea. HPI This is a 68-year-old male who has a history of cough and frequent phlegm production. Thepatient has a history of obstructive sleep apnea but there are no test results to confirm that. I also did not find any download on compliance with CPAP therapy. Patient has not been told that he snores or has observed stop breathing episodes. He does have choking or gasping during his sleep which she describes as a sense of being out of breath. He does experience some morning headaches which resolve as the day passes. He has not undergone any overnight oxygen trending to verify whether this could be a cause for his morning headaches. He reports generally sleeping about 5 hours per night. That does vary however by his description. He generally takes 20 to 30- minute naps 3 times per week. He has pulmonary function testing that was done on 04/18/2024 which indicated that he has moderate obstructive sleep apnea and no significant improvement post bronchodilator. The studies were done at a facility in [facility]. His ESS was 5. His medications are gemfibrozil, gabapentin, baclofen fluticasone, Dayvigo, baclofen, and Astepro. I could not locate any inhaled bronchodilator medications that he is using. Past medical history is positive for some wheezing and chest tightness that he experiences he reports having pneumonia in 1978 and history of his sleep apnea. The concern he has with wheezing and chest tightness seem to start back in 2022 and has been present most of the time. His past surgical history is procedure treating the lower back and neck area and he had a total left knee replacement andresection of his prostate for cancer. He is currently retired and has owned and managed properties. Review of Systems On review of systems he denies any change in his weight over the past year he does have some chronic nasal congestion. He has been told that he has COPD but I have not found any use of inhaled bronchodilator therapy. He does report some seasonal allergies. And as reported earlier he does have some shortness of breath particularly while talking or dressing. Objective Physical Exam Patient did not appear in respiratory distress while seeing him in the office. Unfortunately because of the lack of time on his visit I was not able to do a physical exam. Assessment/Plan Impressions: 1. Obstructive sleep apnea, but I could not find any specific test results. He is physician office notes does however mention that he has sleep apnea that was diagnosed by a payroll administrative assistant in the [facility]. It further states that he only saw this individual 1 time in February 2023. The office notes indicate that he has never seen a payroll administrative assistant for his history of bronchitis or pneumonias. 2. The patient was agreeable to doing overnight oxygen trending in the form of an HST or in-lab sleep study. I could not find any results in the records that the patient provided. 3. Seasonal allergies. This note was transcribed using the LiveLeaf Dictation system. There may be grammatical, punctuation,or verbiage errors that occur with voice recognition programs. eSlina Nichole DO 06/27/24 11:56 AM /Geo Godfrey documented in this [facility] Work Phone: 1([phone]) 490-751105-31-2024 History of Present illness Narrative* Marissa Alonso, PT - 07/15/2023 10:45 AM EDT [facility] DAILY TREATMENT NOTE Today's Date 07/15/2023 Patient Name: Sung Hobbs Date of : 1955 Current Visit #: 3 Authorized Visits: [id number] Case Name: History of left knee replacement History: Pre-Treatment Pain Scale: soreness Symptoms: stabilized Functional Diagnosis: 1. History of left knee replacement Clinical Information: Subjective: just came from a long walk and all warmed up. Denies any soreness after last session. Objective L knee bending 125 with starp and lunge 123 Treatments: Physical Therapy Exercise Log - 07/15/23 1050 OTHER Precautions/Contraindications 04/13 L TKA , include higher functioanl strengthening as tolerated Notes 10:49 11:27 Therapeutic Exercise (53918) Intervention NuStep L3 5 mins NT due to already warmed walking before session Parameters shuttle squat BL 112# 2x10, SL 68# 2x10 B, heel raises 2x10 68# Intervention side stepping with squat small YTband loop 15 2 laps Parameters lunge, hamstring and calf stretch 20 x3 Intervention step up 18 10 Parameters heel tape side 10 L Intervention HC BTb 2x10 Parameters stool scoot 30 1 lap Intervention TKE cook band 5 x20 Parameters TM retro walking 30 x2 Intervention squat with yellow ball tapping on trampoline 10x2 Parameters SL standing on airex and off airex 20 x1 Intervention BOSu lunges 10 B Intervention education about ROM gaining probability, strengthening with different angle to improvefunctional strength, different actiivties and impact on joint, gardual return to high impactful activities Parameters Access Code: [email or web address] URL: [email or web address] Date: 06/24/2023 Prepared by: Marissa Alonso Exercises - Seated Table Hamstring Stretch - 2 x daily - 3 reps - 20 seconds hold - LongSitting Calf Stretch with Strap - 2 x daily - 3 reps - 20 seconds hold - Supine Heel Slide with Strap - 1 x daily - 7 x weekly - 1 sets - 10 reps - 5 hold - Side Leg Lifts - 1 x daily - 7 x weekly - 1 sets - 10 reps - 2 hold - Standing Knee Flexion Stretch on Step - 1 x daily - 3-5 reps - 20 sec hold - Forward Step Down Touch with Heel - 1 x daily - 7 x weekly - 3 sets - 10 reps - Mini Squat withCounter Support - 1 x daily - 7 x weekly - 3 sets - 10 reps PT Treatment Times Therex Total Time 38 Direct Treatment Time 38 Total Treatment Time 40 Goals: Physical Therapy Ortho Goals: Patient will safely, correctly and independently demonstrate the ability to perform a progressive HEP to achieve maximal rehabilitation potential and prevent this condition from recurring. 2 weeks Patient will demonstrate improved L knee ROM of 0->120 allowing for ease of ADLs/ transfer. 6 weeks Patient will demonstrate strength of quadriceps muscle 5/5 with good eccentric control to improve tolerance of functional activities such as kneeling, deep squatting. 6 weeks Patient will improve FOTO score to at least 73 (predicted) from 59 to show MDC/MCII and expected functional outcome. 6 weeks Patient Education: Quality of movement, Verbal HEP, and Diagnosis and recovery specific education with patient verbalized understanding. Post-Treatment Pain Scale: 0 Assessment: Patient had an expected response to treatment. Skilled Intervention demonstrated by modifications of treatment per exercise log including increased load, increased rate, increased mobility, and assessment of patient's response and safety interventions per exercise log. Progress towards goals as expected. Plan for Next Visit: Treatment Visit with focus on continue Marissa Alonso PT STATE LICENSE, [id number] documented in this [id number] Evaluation + Plan note* Assessment & Plan Note - Opal Allen APRN-SILK SOAKER - 07/12/2023 9:10 PM EDT Associated Problem(s): Trigger finger of left thumb We discussed symptom control with OTC Tylenol and topical pain relievers. Instructed on 2 grams diclofenac gel 4 times daily. Patient may also use heat or ice, whichever offers better relief. We discussed splinting options including offered to fit with oval 8 brace to prevent locking, patient declines at this time We reviewed risk and benefits of repeat cortisone injections into the small areas including risk ofpotential tendon rupture and/or cartilage wearing. We did discuss possible surgical intervention to release the trigger finger as well as typical recovery. Offered referral to Dr. Vargas for surgical eval, patient wishes to hold at this time. Advised tocontact office on as needed basis if symptoms become aggravated, worsening or wishes to pursue surgical intervention. In agreement with plan of care This note was generated using LiveLeaf software. It may contain errors in wording, punctuation or spelling. [facility] Work Phone: 1(703) 363-462905-28-2024 Miscellaneous Notes* Assessment & Plan Note - SUNNY Benton - 07/12/2023 9:10 PM EDTAssociated Problem(s): Trigger finger of left thumb We discussed symptom control with OTC Tylenol and topical pain relievers. Instructed on 2 grams diclofenac gel 4 times daily. Patient may also use heat or ice, whichever offers better relief. We discussed splinting options including offered to fit with oval 8 brace to prevent locking, patient declines at this time We reviewed risk and benefits of repeat cortisone injections into the small areas including risk ofpotential tendon rupture and/or cartilage wearing. We did discuss possible surgical intervention to release the trigger finger as well as typical recovery. Offered referral to Dr. Vargas for surgical eval, patient wishes to hold at this time. Advised tocontact office on as needed basis if symptoms become aggravated, worsening or wishes to pursue surgical intervention. In agreement with plan of care This note was generated using LiveLeaf software. It may contain errors in wording, punctuation or spelling. documented in this [facility] Work Phone: 1([phone]) 759-672205-28-2024 History of Present illness Narrative* SUNNY Benton - 07/12/2023 2:15 PM EDT Subjective Patient ID: Sung Hobbs is a 67 y.o. male. Chief Complaint: Pain of the Left Thumb HPI Sung is a pleasant 67-year-old gentleman presenting today for new patient evaluation of left thumb pain. Patient has had intermittent symptoms over the last 2 years. Patient lives part-time in [place] and part-time here. Last eval and cortisone injection was in January 2023 [id number]. Patient gets good relief with cortisone injections. Patient states he has had 3 cortisone injections to the left thumb over the last 2 years. Denies any injury. Patient does have history of trigger finger releases to bilateral ring fingers in the past with instant improvement of symptoms. Times are aggravated at end of the day and overnight with walking and flexion. Patient is right-hand dominant. Not taking any medications for this Review of Systems Constitutional: Negative. HENT: Negative. Respiratory: Negative. Cardiovascular: Negative. Endocrine: Negative. Musculoskeletal: Positive for arthralgias. Skin: Negative. Neurological: Negative. Hematological: Negative. Psychiatric/Behavioral: Negative. Objective Right Hand Exam Right hand exam is normal. Range of Motion The patient has normal right wrist ROM. Left Hand Exam Tenderness Left hand tenderness location: A1 gerson of the left thumb, positive palpable nodule that is tenderto touch. Range of Motion The patient has normal left wrist ROM. Tests Phalen s Sign: negative Tinel's sign (median nerve): negative Arabella's test: negative Other Erythema: absent Sensation: normal Pulse: present Comments: No triggering noted on today's exam, positive tenderness over the nodule, worse with flexion. Full ROM of distal joints with no sx aggravation, distal motor and sensory intact, cap refill at 2 seconds. Image Results: Independent review of hand x-rays completed on date of visit. There is no acute fracture or misalignment noted. There is mild CMC joint degenerative changes as well as multiple PIP and DIP mild degenerative changes noted. Await radiology report Assessment/Plan Encounter Diagnoses: Problem List Items Addressed This Visit ICD-10-CM Trigger finger of left thumb - Primary M65.312 We discussed symptom control with OTC Tylenol and topical pain relievers. Instructed on 2 grams diclofenac gel 4 times daily. Patient may also use heat or ice, whichever offers better relief. We discussed splinting options including offered to fit with oval 8 brace to prevent locking, patient declines at this time We reviewed risk and benefits of repeat cortisone injections into the small areas including risk ofpotential tendon rupture and/or cartilage wearing. We did discuss possible surgical intervention to release the trigger finger as well as typical recovery. Offered referral to Dr. Vargas for surgical eval, patient wishes to hold at this time. Advised tocontact office on as needed basis if symptoms become aggravated, worsening or wishes to pursue surgical intervention. In agreement with plan of care This note was generated using LiveLeaf software. It may contain errors in wording, punctuation or spelling. Other Visit Diagnoses Codes Pain of left thumb M79.645 Relevant Orders XR hand left 3+ views documented in this [facility] Work Phone: [phone] [phone] History of Present illness Narrative* Marissa Alonso, PT - 07/01/2023 10:45 AM EDT [facility] DAILY TREATMENT NOTE Today's Date 07/01/2023 Patient Name: Sung Hobbs Date of : 1955 Current Visit #: 2 Authorized Visits: [id number] Case Name: History of left knee replacement History: Pre-Treatment Pain Scale: 0 Symptoms: stabilized Functional Diagnosis: 1. History of left knee replacement Clinical Information: Subjective: he is complaint with exercises and like to do stairs bending stretch and trying to get back to stretches routine that he used to before going to [place]. Objective Treatments: Physical Therapy Exercise Log - 07/01/23 1051 OTHER Precautions/Contraindications 04/13 L TKA , include higher functioanl strengthening as tolerated Notes 10:50 11:26 Therapeutic Exercise (86738) Intervention NuStep L3 5 mins Parameters high step up Nv Intervention squat NV Parameters lunge, hamstring and calf stretch 20 x3 Intervention shuttle squat BL 112# 2x10, SL 68# 2x10 B Parameters step up 18 10 Intervention HC BTb 2x10 Parameters stool scoot 30 1 lap Intervention TKE against wall 5 x20 Parameters TM retro walking 30 x2 Intervention squat with yellow ball tapping on trampoline 10 Intervention education about ROM gaining probability, strengthening with different angle to improvefunctional strength, different actiivties and impact on joint, gardual return to high impactful activities Parameters Access Code: [email or web address] URL: [email or web address] Date: 06/24/2023 Prepared by: Marissa Alonso Exercises - Seated Table Hamstring Stretch - 2 x daily - 3 reps - 20 seconds hold - LongSitting Calf Stretch with Strap - 2 x daily - 3 reps - 20 seconds hold - Supine Heel Slide with Strap - 1 x daily - 7 x weekly - 1 sets - 10 reps - 5 hold - Side Leg Lifts - 1 x daily - 7 x weekly - 1 sets - 10 reps - 2 hold - Standing Knee Flexion Stretch on Step - 1 x daily - 3-5 reps - 20 sec hold - Forward Step Down Touch with Heel - 1 x daily - 7 x weekly - 3 sets - 10 reps - Mini Squat withCounter Support - 1 x daily - 7 x weekly - 3 sets - 10 reps PT Treatment Times Therex Total Time 36 Direct Treatment Time 36 Goals: Physical Therapy Ortho Goals: Patient will safely, correctly and independently demonstrate the ability to perform a progressive HEP to achieve maximal rehabilitation potential and prevent this condition from recurring. 2 weeks Patient will demonstrate improved L knee ROM of 0->120 allowing for ease of ADLs/ transfer. 6 weeks Patient will demonstrate strength of quadriceps muscle 5/5 with good eccentric control to improve tolerance of functional activities such as kneeling, deep squatting. 6 weeks Patient will improve FOTO score to at least 73 (predicted) from 59 to show MDC/MCII and expected functional outcome. 6 weeks Patient Education: Quality of movement, Verbal HEP, and Diagnosis and recovery specific education with patient verbalized understanding. Post-Treatment Pain Scale: 0 Assessment: Patient had an expected response to treatment. Skilled Intervention demonstrated by modifications of treatment per exercise log including increased load, increased mobility, and assessment of patient's response and safety interventions per exercise log. Progress towards goals as expected. Plan for Next Visit: Treatment Visit with focus on continue to progress as tolerated Marissa Alonso PT STATE LICENSE, [id number] documented in this [id number] History of Present illness Narrative* Marissa Alonso PT - 06/24/2023 2:30 PM EDT [facility] Evaluation Today's Date 06/24/2023 Patient Name: Sung Hobbs Date of : 1955 Case Name: History of left knee replacement Functional Diagnosis: 1. History of left knee replacement Clinical Information: Subjective Referring Diagnosis: History of left knee replacement History of Present Illness Subjective History: Patient presents to physical therapy with History of left knee replacement on 04/13/2023. He had 10 sessions of therapy at [place] and recently he moved to [place] and would like to continue therapy to build up strength and return to PLOF. He has 120 degree of knee bending and almost straight knee. 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 He has been doing walking 1.5 miles and riding bike. He goes to [facility] and does leg press, quads, hamstring curls and he does not have much strength like he used to do. Knee gets tight and stiff. Sharp nerve pain in the front of the knee sometime but very rare. Pain Scale Pain location: knee (L) Average Pain: 1/10 (mild pain if happens) Pain at highest rating: sharp pain here and there. Personal Goals: playing pickle ball and running Social Support: Christianity, social, or cultural considerations to be made aware of before starting treatment: No Home Environment Current Home Environment: Current setup: stairs are fine. Fall risk screening Fallen 2 or more times in the last 12 months: No Injured as a result of a fall in the last 12 months: No Christianity, social, or cultural considerations to be made aware of before starting treatment: No Hip Left Hip Muscle Strength: Flexion: 4+ Abduction: 4+ Knee Left Knee Range of Motion: Flexion Active: 115 Passive: 125 Extension Active: 0 Muscle Strength Flexion: 4+ Extension: 4+ Hamstring tightness BL +ve Difficulty with deep squat Treatments: Physical Therapy Exercise Log - 06/24/23 1528 OTHER Precautions/Contraindications 04/13 L TKA , include higher functioanl strengthening as tolerated Therapeutic Exercise (39077) Parameters high step up Nv Intervention squat NV Parameters lunge, hamstring and calf stretch NV Intervention education about ROM gaining probability, strengthening with different angle to improvefunctional strength, different actiivties and impact on joint, gardual return to high impactful activities Parameters Access Code: [email or web address] URL: [email or web address] Date: 06/24/2023 Prepared by: Marissa Alonso Exercises - Seated Table Hamstring Stretch - 2 x daily - 3 reps - 20 seconds hold - LongSitting Calf Stretch with Strap - 2 x daily - 3 reps - 20 seconds hold - Supine Heel Slide with Strap - 1 x daily - 7 x weekly - 1 sets - 10 reps - 5 hold - Side Leg Lifts - 1 x daily - 7 x weekly - 1 sets - 10 reps - 2 hold - Standing Knee Flexion Stretch on Step - 1 x daily - 3-5 reps - 20 sec hold - Forward Step Down Touch with Heel - 1 x daily - 7 x weekly - 3 sets - 10 reps - Mini Squat withCounter Support - 1 x daily - 7 x weekly - 3 sets - 10 reps Treatment Plan: Frequency of Visits: once per week Duration: 4 weeks Interventions: Therapeutic Exercise (69473), Neuromuscular Re-Education (94340), Manual Therapy (08761), Gait Training (15625), Hot/Cold Pack (42304), and Vasopneumatic (94999) Rehab Potential: fair Goals: Physical Therapy Ortho Goals: Patient will safely, correctly and independently demonstrate the ability to perform a progressive HEP to achieve maximal rehabilitation potential and prevent this condition from recurring. 2 weeks Patient will demonstrate improved L knee ROM of 0->120 allowing for ease of ADLs/ transfer. 6 weeks Patient will demonstrate strength of quadriceps muscle 5/5 with good eccentric control to improve tolerance of functional activities such as kneeling, deep squatting. 6 weeks Patient will improve FOTO score to at least 73 (predicted) from 59 to show MDC/MCII and expected functional outcome. 6 weeks Patient Education provided: Patient was educated about the condition, precautions, and physical therapy plan of care. Educated about expectation of range and strength at this point and in future and impact of different activities on replaced knee and what he can do to improve functional strength. Clinical Impression: Pt is a 67 y.o. year old male who presented to the clinic with Hx of L TKA. Upon assessment, pt has been found with the following impairments: good ROM; decreased strength, endurance; impaired tolerance to do activities. The documented impairments result in the following functional limitations: deep squat , kneeling, running, high steps, regular PA/exercise, functional mobility, ADLs/IADLs, recreational activities, sporting activities, quality of life.The pt would benefit from skilled PT services focused on the above listed impairments and limitations in order to safely progress pt to their desired level of function. Pt to be discharged from OP PT services if/when goals are met, if they fail to make progress with conservative management in PT, if their level of progress plateaus, or if they do not maintain compliance with attendance or HEP. At this time, it is my clinical judgment that services are medically necessary. Marissa Alonso PT STATE LICENSE, [id number] documented in this [id number] History of Present illness Narrative* Marissa Alonso PT - 06/24/2023 2:30 PM EDT [facility] Evaluation Today's Date 06/24/2023 Patient Name: Sung Hobbs Date of : 1955 Case Name: History of left knee replacement Functional Diagnosis: 1. History of left knee replacement Clinical Information: Subjective Referring Diagnosis: History of left knee replacement History of Present Illness Subjective History: Patient presents to physical therapy with History of left knee replacement on 04/13/2023. He had 10 sessions of therapy at [place] and recently he moved to [place] and would like to continue therapy to build up strength and return to OF. He has 120 degree of knee bending and almost straight knee. 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 He has been doing walking 1.5 miles and riding bike. He goes to [facility] and does leg press, quads, hamstring curls and he does not have much strength like he used to do. Knee gets tight and stiff. Sharp nerve pain in the front of the knee sometime but very rare. Pain Scale Pain location: knee (L) Average Pain: 1/10 (mild pain if happens) Pain at highest rating: sharp pain here and there. Personal Goals: playing pickle ball and running Social Support: Christianity, social, or cultural considerations to be made aware of before starting treatment: No Home Environment Current Home Environment: Current setup: stairs are fine. Fall risk screening Fallen 2 or more times in the last 12 months: No Injured as a result of a fall in the last 12 months: No Christianity, social, or cultural considerations to be made aware of before starting treatment: No Hip Left Hip Muscle Strength: Flexion: 4+ Abduction: 4+ Knee Left Knee Range of Motion: Flexion Active: 115 Passive: 125 Extension Active: 0 Muscle Strength Flexion: 4+ Extension: 4+ Hamstring tightness BL +ve Difficulty with deep squat Treatments: Physical Therapy Exercise Log - 06/24/23 1528 OTHER Precautions/Contraindications 04/13 L TKA , include higher functioanl strengthening as tolerated Therapeutic Exercise (65969) Parameters high step up Nv Intervention squat NV Parameters lunge, hamstring and calf stretch NV Intervention education about ROM gaining probability, strengthening with different angle to improvefunctional strength, different actiivties and impact on joint, gardual return to high impactful activities Parameters Access Code: [email or web address] URL: [email or web address] Date: 06/24/2023 Prepared by: Marissa Alonso Exercises - Seated Table Hamstring Stretch - 2 x daily - 3 reps - 20 seconds hold - LongSitting Calf Stretch with Strap - 2 x daily - 3 reps - 20 seconds hold - Supine Heel Slide with Strap - 1 x daily - 7 x weekly - 1 sets - 10 reps - 5 hold - Side Leg Lifts - 1 x daily - 7 x weekly - 1 sets - 10 reps - 2 hold - Standing Knee Flexion Stretch on Step - 1 x daily - 3-5 reps - 20 sec hold - Forward Step Down Touch with Heel - 1 x daily - 7 x weekly - 3 sets - 10 reps - Mini Squat withCounter Support - 1 x daily - 7 x weekly - 3 sets - 10 reps Treatment Plan: Frequency of Visits: once per week Duration: 4 weeks Interventions: Therapeutic Exercise (50640), Neuromuscular Re-Education (94347), Manual Therapy (12187), Gait Training (65227), Hot/Cold Pack (07029), and Vasopneumatic (11732) Rehab Potential: fair Goals: Physical Therapy Ortho Goals: Patient will safely, correctly and independently demonstrate the ability to perform a progressive HEP to achieve maximal rehabilitation potential and prevent this condition from recurring. 2 weeks Patient will demonstrate improved L knee ROM of 0->120 allowing for ease of ADLs/ transfer. 6 weeks Patient will demonstrate strength of quadriceps muscle 5/5 with good eccentric control to improve tolerance of functional activities such as kneeling, deep squatting. 6 weeks Patient will improve FOTO score to at least 73 (predicted) from 59 to show MDC/MCII and expected functional outcome. 6 weeks Patient Education provided: Patient was educated about the condition, precautions, and physical therapy plan of care. Educated about expectation of range and strength at this point and in future and impact of different activities on replaced knee and what he can do to improve functional strength. Clinical Impression: Pt is a 67 y.o. year old male who presented to the clinic with Hx of L TKA. Upon assessment, pt has been found with the following impairments: good ROM; decreased strength, endurance; impaired tolerance to do activities. The documented impairments result in the following functional limitations: deep squat , kneeling, running, high steps, regular PA/exercise, functional mobility, ADLs/IADLs, recreational activities, sporting activities, quality of life.The pt would benefit from skilled PT services focused on the above listed impairments and limitations in order to safely progress pt to their desired level of function. Pt to be discharged from OP PT services if/when goals are met, if they fail to make progress with conservative management in PT, if their level of progress plateaus, or if they do not maintain compliance with attendance or HEP. At this time, it is my clinical judgment that services are medically necessary. Marissa Alonso, PT STATE LICENSE, [id number] [facility]* Diagnosis History of left knee replacement- Primary [facility] Diagnosis History of left knee replacement [facility] Diagnosis History of left knee replacement- Primary [facility]* Diagnosis History of left knee replacement [facility]* Diagnosis Trigger finger of left thumb- Primary Pain of left thumb documented in this encounter [facility] Work Phone: Evaluation note* Diagnosis Pain of left thumb documented in this encounter [facility] Work Phone: Evaluation note* Diagnosis History of left knee replacement- Primary [facility] Diagnosis Trigger finger of left thumb- Primary Pain of left thumb Cervical radiculopathy- Primary Brachial neuritis or radiculitis nos Cervical radiculopathy Brachial neuritis or radiculitis nos documented in this encounter [facility] Work Phone: Evaluation note* Diagnosis Trigger finger of left thumb- Primary Pain of left thumb Obstructive sleep apnea- Primary Obstructive sleep apnea (adult) (pediatric) Seasonal allergies Allergic rhinitis, cause unspecified documented in this encounter [facility] Work Phone: Evaluation note* Diagnosis Trigger finger of left thumb- Primary Pain of left thumb Cervical radiculopathy Brachial neuritis or radiculitis nos documented in this encounter [facility] Work Phone: Evaluation note* Diagnosis Asthma-COPD overlap syndrome (HCC)- Primary Post-nasal drip Postnasal drip JUAN on CPAP Obstructive sleep apnea (adult) (pediatric) documented [facility]No assessment information [facility] Work Phone: Evaluation note* Diagnosis Trigger finger of left thumb- Primary Pain of left thumb Cervical radiculopathy- Primary Brachial neuritis or radiculitis nos documented in this encounter [facility] Work Phone: Reason for referral (narrative)* Consultation (Routine) - Authorized Specialty Diagnoses / Procedures Referred By Gunnar grace Referred To Contact Orthopaedic Surgery / Orthopedic Surgery Diagnoses Trigger finger of left thumb Procedures Follow Up In Orthopaedic Surgery Opal Allen, MEDICAL TECHNOLOGIST PRN-SILK SOAKER [address] [facility], [facility] [address] [id number] Selina Vargas MD [address] [facility] [address] [place] [address] Referral ID Status Reason Start Date Expiration Date V isits Requested Visits Authorized [id number] Authorized 07/12/2023 07/11/2024 1 1 * Imaging (Routine) - Authorized Specialty Diagnoses / Procedures Referred By Contac t Referred To Contact Radiology Diagnoses Pain of left thumb Procedures XR hand left 3+ views Opal Allen, SUNNY [address] [facility], [place] [address] [place] [address] [address] [place] [address] Referral ID Status Reason Start Date Expiration Date Visits Requested Visits Authorized [id number] Authorized Perform Procedure 07/12/2023 07/11/2024 1 1 [facility] Work Phone: Reason for referral (narrative)No reason for referral information availableWGalion [facility] Work Phone: Reason for visit Narrative* Imaging (Routine) - Authorized Specialty Diagnoses / Procedures Referred By Contac t Referred To Contact Radiology Diagnoses Cervical radiculopathy Procedures MR cervical spine wo IV contrast Maxwell Santana, MERVAT [address] [facility], [address] [place] [id number] Phone: tel: fax: Referral ID Status Reason Start Date Expiration Date Visits Requested Visits Authorized [id number] Authorized Perform Procedure 06/21/2024 06/21/2025 1 1 [facility] Work Phone: Summary Purpose Family History No Family History Records Found Relationship Condition Age at Onset Recorded Date/T ady father Cardiac disease Unknown mother Cardiac disease Unknown Advance Directives No Advanced Directives Records FoundNo Advanced Directives Records FoundNo Advanced Directives Records FoundNo Advanced Directives Records FoundNo Advanced Directives Records FoundNo Advanced Directives Records FoundNo Advanced Directives Records FoundNo Advanced Directives Records Found Reason for Referral Specialty Diagnoses / Procedures Referred By Contac t Referred To Contact Rehabilitation Diagnoses History of left knee replacement System, Provider Not In Rehab [place] [address] [place] [address] Referral ID Status Reason Start Date Expiration Date V isits Requested Visits Authorized [id number] Authorized 06/23/2023 06/22/2024 1 199 Specialty Diagnoses / Procedures Referred By Gunnar grace Referred To Contact Radiology Diagnoses Pain of left thumb Procedures XR hand left 3+ views Opal Allen, MEDICAL TECHNOLOGIST PR[employer]-SILK SOAKER [address] [facility], [facility] [address] [place] [address] [facility] [address] [place] [address] Referral ID Status Reason Start Date Expiration Date Visits Requested Visits Authorized [id number] Authorized Perform Procedure 07/12/2023 07/11/2024 1 1 Chief Complaint and Reason for Visit Chief Complaint Admit Date CHRONIC SINUSITIS August 08, 2024 1:11 pm Chief Complaint Admit Date CHRONIC SINUSITIS August 08, 2024 1:11 pm Tachycardia/Family Hx of Heart Issues (S elf) August 29, 2024 1:14pm Chief Complaint Admit Date CHRONIC SINUSITIS August 08, 2024 1:11 pm Tachycardia/Family Hx of Heart Issues (S elf) August 29, 2024 1:14pm PRE-OP September 21, 2024 12: 04pm PRE-OP September 21, 2024 12: 17pm Reason for Visit Admit Date Chest pain August 29, 2024 1:14 pm Hypercholesterolemia August 29, 2024 1:1 4pm Additional Source Comments (unrecognized sect ion and content) No Status Records FoundNo Status Records FoundNo Status Records FoundNo Status Records FoundNo Status Records FoundNo Status Records FoundNo Status Records FoundNo Status Records Found INFORMATION SOURCE (unrecogn ized section and content) DATE CREATED AUTHOR 08/02/2017 [facility] DATE CREATED AUTHOR AUTHOR'S ORGANIZ ATION 08/02/2017 [facility] DATE CREATED AUTHOR AUTHOR'S ORGANIZ ATION 11/07/2023 [facility] DATE CREATED AUTHOR AUTHOR'S ORGANIZ ATION 07/30/2024 [facility] DATE CREATED AUTHOR AUTHOR'S ORGANIZ ATION 08/11/2024 [facility] DATE CREATED AUTHOR AUTHOR'S ORGANIZ ATION 08/16/2024 [facility] DATE CREATED AUTHOR AUTHOR'S ORGANIZ ATION 09/23/2024 [facility] DATE CREATED AUTHOR AUTHOR'S ORGANIZ ATION 09/26/2024 [facility] Care Teams (unrecognized sec tion and content) Dry Cleaner Presser Relationship Specialty Start Date End Date System, Provider Not In PCP - General 06/23/23 Dry Cleaner Presser Relationship Specialty Start Date End Date System, Provider Not In PCP - General 06/23/23 Dry Cleaner Presser Relationship Specialty Start Date End Date System, Provider Not In PCP - General 06/23/23 Dry Cleaner Presser Relationship Specialty Start Date End Date No, Physician [facility] PCP - General 06/15/23 Dry Cleaner Presser Relationship Specialty Start Date End Date Generic Provider, No Assigned MD Tonio [facility] [id number] PCP - General Coffee Shop Attendant 07/12/24 Team Status: Active Member Role/Relationship Status Dates GEO REYNAGA Primary Care Provider Active Team Status: Inactive Member Role/Relationship Status Dates Dr. Robin Vasquez MD Attending Provider Activ e Start: August 08, 2024 End: August 08, 2024 Dr. Robin Vasquez MD Referring Provider Activ e Start: August 08, 2024 End: August 08, 2024 JUHI JAIMES Primary Care Provider Active Sta rt: August 08, 2024 End: August 08, 2024 Dry Cleaner Presser Relationship Specialty Start Date End Date Generic Provider, No [place] [id number] PCP - General Coffee Shop Attendant 07/12/24 Team Status: Inactive Member Role/Relationship Status Dates Dr. Eric Srinivasan MD Attending Provider Active S tart: August 29, 2024 End: August 29, 2024 Dr. Najma Mckenzie MD Referring Provider Active Start: August 29, 2024 End: August 29, 2024 JUHI JAIMES Primary Care Provider Active Sta rt: August 29, 2024 End: August 29, 2024 Team Status: Inactive Member Role/Relationship Status Dates Dr. Robin Vasquez MD Attending Provider Activ e Start: August 08, 2024 End: August 08, 2024 Dr. Robin Vasquez MD Referring Provider Activ e Start: August 08, 2024 End: August 08, 2024 GEOJUHI CALVILLO Primary Care Provider Active Sta rt: August 08, 2024 End: August 08, 2024 Team Status: Inactive Member Role/Relationship Status Dates Dr. Eric Srinivasan MD Attending Provider Active S tart: August 29, 2024 End: August 29, 2024 Dr. Najma Mckenzie MD Referring Provider Active Start: August 29, 2024 End: August 29, 2024 GEOJUHI CALVILLO Primary Care Provider Active Sta rt: August 29, 2024 End: August 29, 2024 Team Status: Inactive Member Role/Relationship Status Dates Dr. Robin Vasquez MD Attending Provider Activ e Start: September 21, 2024 End: September 21, 2024 Dr. Robin Vasquez MD Referring Provider Activ e Start: September 21, 2024 End: September 21, 2024 JUHI JAIMES Primary Care Provider Active Sta rt: September 21, 2024 End: September 21, 2024 Team Status: Active Member Role/Relationship Status Dates Dr. Calvin Ga MD Attending Provider Active Start: September 21, 2024 Dr. Robin Vasquez MD Referring Provider Activ e Start: September 21, 2024 Reason for Visit (unrecogniz ed section and content) Reason Comments Physical Therapy Specialty Diagnoses / Procedures Referred By Contac t Referred To Contact Rehabilitation Diagnoses History of left knee replacement System, Provider Not In Rehab [place] [address] [facility] [place] [address] Referral ID Status Reason Start Date Expiration Date V isits Requested Visits Authorized [id number] Authorized 06/23/2023 06/22/2024 1 199 Reason Comments Pain Specialty Diagnoses / Procedures Referred By Contac t Referred To Contact Radiology Diagnoses Pain of left thumb Procedures XR hand left 3+ views Opal Allen, MEDICAL TECHNOLOGIST [employer] [address] [facility], [facility] [address] [place] [address] [facility] [address] [place] [address] Referral ID Status Reason Start Date Expiration Date Visits Requested Visits Authorized [id number] Authorized Perform Procedure 07/12/2023 07/11/2024 1 1 Referral ID Status Reason Start Date Expiration Date V isits Requested Visits Authorized [id number] Pending Review 06/23/2023 06/22/2024 1 199 Reason Comments COPD Sleep Apnea Reason Comments Appointment Reason Comments Consult COPD COPD Reason Comments Follow-up Cervical MRI results Source Comments (unrecognize d section and content) In the event this informatio n is protected by the Federal Confidentiality of Alcohol and Drug Abuse Patient Records regulations: The Federal rules restrict any use of the information to criminally investigate or prosecute any alcohol or drug abuse patient.[place] the event this information is protected by the Federal Confidentiality of Alcohol and Drug Abuse Patient Records regulations: The Federal rules restrict any use of the information to criminally investigate or prosecute any alcohol or drug abuse patient.[place] the event this information is protected by the Federal Confidentiality of Alcohol and Drug Abuse Patient Records regulations: The Federal rules restrict any use of the information to criminally investigate or prosecute any alcohol or drug abuse patient.[place] the event this information is protected by the Federal Confidentiality of Alcohol and Drug Abuse Patient Records regulations: The Federal rules restrict any use of the information to criminally investigate or prosecute any alcohol or drug abuse patient.[place] Goals (unrecognized section and content) Goals may be documented in a n alternate sectionGoals may be documented in an alternate sectionGoals may be documented in an alternate section FOR RECORDS PERTAINING TO PATIENTS WHO ARE OR HAVE BEEN ENROLLED IN A CHEMICAL DEPENDENCY/SUBSTANCEABUSE PROGRAM, SOME INFORMATION MAY BE OMITTED. This clinical summary was aggregated from multiple sources. Caution should be exercised in using it in the provision of clinical care. This summary normalizes information from multiple sources, and as a consequence, information in this document may materially change the coding, format and clinical context of patient data. In addition, data may be omitted in some cases. CLINICAL DECISIONS SHOULD BE BASED ON THE PRIMARY CLINICAL RECORDS. [email or web address] [facility]. provides no warranty or guarantee of the accuracy or completeness of information in this document.
== END | disposition home or self-care (01) ==
LOC: LABSPEC 15:33
PROVIDERS: Referring Provider Otolaryngology; Visit Provider Otolaryngology
DX: J32.8 Other chronic sinusitis (principal); R09.81 Nasal congestion; J30.9 Allergic rhinitis, unspecified
CPT/HCPCS: 88305

== ENCOUNTER → 2024-10-10 | Outpatient (CLI) | payer MEDICARE, SELFPAY ==
--- NOTE | 2024-10-10 12:18 | CT_ITS ---
PROCEDURE: LIMITED CHEST CT CARDIAC ONLY 10/10/2024 REASON FOR EXAM: E78.00 - PURE HYPERCHOLESTEROLEMIA, UNSPECIFIED TECHNIQUE: LIMITED CHEST CT CARDIAC ONLY Coronal and Sagittal reconstruction series were provided. CONTRAST: Isovue 370 VOLUME: 95 mL One or more dose reduction techniques were used (e.g., Automated exposure control, adjustment of the mA and/or kV according to patient size, use of iterative reconstruction technique). RADIATION DOSE SUMMARY: CTDlvol: 73 mGy DLP: 2643.78 mGycm COMPARISON: None FINDINGS: The heart is not enlarged. No significant coronary artery calcification is seen. Mild increased markings in the right middle lobe suggestive of scarring. Mild linear scarring at the lung bases. CT/Limited Chest CT Cardiac Only IMPRESSION: No coronary artery calcification is seen. Reading Location: [id number]
[2024-10-10 12:33] VITALS: BP 134/75; PULSE 45; RESP 18; O2SAT 95; BMI 31.1
[2024-10-10 12:44] VITALS: BP 119/67; PULSE 68
[2024-10-10] MEDS: Nitroglycerin SL (ED/IMG/CATH) 0.4 MG TABLET SL (12:44)
[2024-10-10 12:52] VITALS: BP 119/67; PULSE 68; RESP 18; O2SAT 95
[2024-10-10] MEDS: 0.9% Saline Lock 10 ML Syringe IV (12:53)
--- OUTSIDE RECORDS SUMMARY | 2024-10-10 21:39 | XMS RPT_ITS | CCD ---
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 above: Order Comment: [facility] Laboratory [facility] has implemented the eGFR calculation approach that does not have a coefficient for race that conforms to the NKF-ASN Task Force Recommendations. Performed By: #### 4 [id number] #### LAB [address] [address] Hiro Lomeli M.D. [id number] ALT [Catalytic activity/Vol] 21 U/L Normal 0-50 U/L [facility] Comment on above: Order Comment: [facility] Laboratory [facility] has implemented the eGFR calculation approach that does not have a coefficient for race that conforms to the NKF-ASN Task Force Recommendations. Performed By: #### 4 [id number] #### [facility] [address] [address] Hiro Lomeli M.D. [id number] Anion gap [Moles/Vol] 13 mmol/L Normal 10-20 [facility] Comment on above: Order Comment: [facility] Laboratory [facility] has implemented the eGFR calculation approach that does not have a coefficient for race that conforms to the NKF-ASN Task Force Recommendations. Performed By: #### 4 [id number] #### [facility] [address] [address] Hiro Lomeli M.D. [id number] AST [Catalytic activity/Vol] 26 U/L Normal 0-50 U/L [facility] Comment on above: Order Comment: [facility] Services has implemented the eGFR calculation approach that does not have a coefficient for race that conforms to the NKF-ASN Task Force Recommendations. Performed By: #### 4 [id number] #### LAB [address] [address] Hiro Lomeli M.D. [id number] Bilirubin [Mass/Vol] 0.5 mg/dL Normal 0.0-1.3 [facility] Comment on above: Order Comment: [facility] Laboratory [facility] has implemented the eGFR calculation approach that does not have a coefficient for race that conforms to the NKF-ASN Task Force Recommendations. Performed By: #### 4 [id number] #### LAB [address] [address] Hiro Lomeli M.D. [id number] Calcium [Mass/Vol] 9.6 mg/dL Normal 8.4-10.2 [facility] Comment on above: Order Comment: [facility] Laboratory [facility] has implemented the eGFR calculation approach that does not have a coefficient for race that conforms to the NKF-ASN Task Force Recommendations. Performed By: #### 4 [id number] #### LAB [address] [address] Hiro Lomeli M.D. [id number] Chloride [Moles/Vol] 106 mmol/L Normal 98-108 [facility] Comment on above: Order Comment: [facility] Services has implemented the eGFR calculation approach that does not have a coefficient for race that conforms to the NKF-ASN Task Force Recommendations. Performed By: #### 4 6126 #### LAB [address] [address] Hiro Lomeli M.D. [id number] Creatinine [Mass/Vol] 1.32 mg/dL High 0.80-1.30 [facility] Comment on above: Order Comment: [facility] Services has implemented the eGFR calculation approach that does not have a coefficient for race that conforms to the NKF-ASN Task Force Recommendations. Performed By: #### 4 [id number] #### LAB [address] [address] Hiro Lomeli M.D. [id number] EGFR 59 mL/min/1.73 m2 Low >=[address] [facility] Comment on above: Order Comment: [facility] Services has implemented the eGFR calculation approach that does not have a coefficient for race that conforms to the NKF-ASN Task Force Recommendations. Result Comment: Cande mated GFR was calculated using the 2020 CKD-EPI creatinine equation. Performed By: #### 4 [id number] #### LAB [address] [address] Hiro Lomeli M.D. [id number] Glucose [Mass/Vol] 108 mg/dL High 65-99 [facility] Comment on above: Order Comment: [facility] Services has implemented the eGFR calculation approach that does not have a coefficient for race that conforms to the NKF-ASN Task Force Recommendations. Performed By: #### 4 6126 #### LAB [address] [address] Hiro Lomeli M.D. [id number] HCO3 (Bld) [Moles/Vol] 26 mmol/L Normal 21-32 [facility] [place] Comment on above: Order Comment: [facility] Services has implemented the eGFR calculation approach that does not have a coefficient for race that conforms to the NKF-ASN Task Force Recommendations. Performed By: #### 4 [id number] #### LAB [address] [address] Hiro Lomeli M.D. [id number] Potassium [Moles/Vol] 4.2 mmol/L Normal 3.5-5.1 [facility] Comment on above: Order Comment: [facility] Services has implemented the eGFR calculation approach that does not have a coefficient for race that conforms to the NKF-ASN Task Force Recommendations. Performed By: #### 4 [id number] #### LAB [address] [address] Hiro Lomeli M.D. [id number] Protein [Mass/Vol] 6.8 g/dL Normal 6.0-8.0 [facility] Comment on above: Order Comment: [facility] Services has implemented the eGFR calculation approach that does not have a coefficient for race that conforms to the NKF-ASN Task Force Recommendations. Performed By: #### 4 6126 #### LAB [address] [address] Hiro Lomeli M.D. [id number] Sodium [Moles/Vol] 141 mmol/L Normal 135-145 [facility] Comment on above: Order Comment: [facility] Services has implemented the eGFR calculation approach that does not have a coefficient for race that conforms to the NKF-ASN Task Force Recommendations. Performed By: #### 4 6126 #### LAB [address] [address] Hiro Lomeli M.D. [id number] Urea nitrogen [Mass/Vol] 26 mg/dL High 8-25 [facility] Comment on above: Order Comment: [facility] Laboratory [facility] has implemented the eGFR calculation approach that does not have a coefficient for race that conforms to the NKF-ASN Task Force Recommendations. Performed By: #### 4 6126 #### LAB [address] [address] Hiro Lomeli M.D. [id number] Urea nitrogen/Creatinine [Mass ratio] 19.7 mg/mg Normal 10.0-20.0 [facility] Comment on above: Order Comment: [facility] Laboratory [facility] has implemented the eGFR calculation approach that does not have a coefficient for race that conforms to the NKF-ASN Task Force Recommendations. Performed By: #### 4 6117 #### LAB [address] [address] Hiro Lomeli M.D. [id number] HEMOGLOBIN A1Con 11-02-2023 Glucose [Mass/Vol] 131 mg/dL High 74-114 [facility] Comment on above: Performed By: #### 4 8202 #### LAB [address] [place], [place] [address] Hiro Lomeli M.D. [id number] HbA1c (Bld) [Mass fraction] 6.2 % High 4.2-5.6 [facility] Comment on above: Performed By: #### 4 8202 #### LAB [address] [address] Hiro Lomeli M.D. [id number] LIPID PANELon 11-02-2023 Cholesterol [Mass/Vol] 153 mg/dL Normal 100-199 [facility] [place] Comment on above: Performed By: #### 4 6087 #### MH LAB [address] [address] Hiro Lomeli M.D. [id number] Cholesterol in HDL [Mass/Vol] 34 mg/dL Low 40-59 [facility] Comment on above: Performed By: #### 4 6087 #### LAB [address] [address] Hiro Lomeli M.D. [id number] Cholesterol.total/Chol esterol in HDL [Mass ratio] 4.5 {ratio} Normal [facility] Comment on above: Result Comment: Male s Cholesterol/HDL Ratio: Average risk: 5.0 1/2 average risk: 3.4 2 x average risk: 9.6 Performed By: #### 4 6087 #### LAB [address] [address] Hiro Lomeli M.D. [id number] LDL CHOLESTEROL CALCULATED 110 mg/dL Normal 10-130 [facility] Comment on above: Result Comment: Asiya onal Cholesterol Education Program Guidelines: LDL Cholesterol Optimal: <100 mg/dL Near Optimal/above Optimal: 100-129 mg/dL Borderline High: 130-159 mg/dL High: 160-189 mg/dL Very High: greater than or equal to 190 mg/dL Performed By: #### 4 6075 #### [facility] LAB [address] [address] Hiro Lomeli M.D. [id number] NON HDL CHOL 119 mg/dL Normal [facility] Comment on above: Result Comment: [employer]iya onal Cholesterol Education Program Guidelines: NON HDL Cholesterol Desirable: <130 mg/dL Borderline High: 130-159 mg/dL High: 160-189 mg/dL Very High: > or = 190 mg/dL Performed By: #### 4 [id number] #### LAB [address] [place], [place] [address] Hiro Lomeli M.D. [id number] Triglyceride [Mass/Vol] 43 mg/dL Normal 30-150 [facility] Comment on above: Performed By: #### 4 [id number] #### LAB [address] [place], [place] [address] Hiro Lomeli M.D. [id number] XR Hand - left 3 Viewson 1. 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 MACRO: None. Signed by: Vanesa Diamond 07/13/2023 6:35 PM Dictation workstation: [id number] [facility]ODAL Interpreted By: Vanesa Wild, STUDY: Left hand, 3 views. INDICATION: Signs/Symptoms:PAIN IN THUMB. COMPARISON: None. ACCESSION NUMBER(S): [id number] ORDERING CLINICIAN: OPAL ALLEN FINDINGS: No acute fracture or malalignment. 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 Soft tissues are within normal limits. MMODAL Vanesa Diamond MD - 07/13/2023 Interpreted By: Vanesa Diamond, STUDY: Left hand, 3 views. INDICATION: Signs/Symptoms:PAIN IN THUMB. COMPARISON: None. ACCESSION NUMBER(S): [id number] ORDERING CLINICIAN: OPAL ALLEN FINDINGS: No acute fracture or malalignment. 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 Soft tissues are within normal limits. IMPRESSION: 1. 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 MACRO: None. Signed by: Vanesa Diamond 07/13/2023 6:35 PM Dictation workstation: [id number] [facility] Work Phone: XR Hand - left 3 ViewsOrdere d By: Vanesa Diamond on 07-13-2023 [facility] Work Phone: XR Hand - left 3 Viewson Radiology Study observation (narrative) [facility] Work Phone: Basic Metabolic Panelon Anion gap 12 mmol/L Normal 7-16 [facility] Calcium 9.0 mg/dL Normal 8.6-10.2 [facility] Chloride 100 mmol/L Normal 98-107 [facility] CO2 24 mmol/L Normal 22-29 [facility] Creatinine 1.1 mg/dL Normal 0.7-1.2 [facility] eGFR (black) mL/min/{1.73_m2} Normal [facility] eGFR (non-black) mL/min/{1.73_m2} Normal >=60 [facility] Comment on above: Result Comment: Stove Mechanic art Kidney Disease: less than 60 ml/min/1.73 sq.m. Kidney Failure: less than 15 ml/min/1.73 sq.m.Results valid for patients 18 years and older. Glucose mass conc 160 mg/dL High 74-109 [facility] Potassium molar conc 4.8 mmol/L Normal 3.5-5.0 [facility] Sodium 136 mmol/L Normal 132-146 [facility] Urea nitrogen 16 mg/dL Normal 8-23 [facility] CBC With Platelet No Differe ntialon 07-19-2017 Erythrocyte distribution width Auto Ratio (RBC) 12.8 fL Normal 11.5-15.0 [facility] Erythrocytes (RBC) 4.49 E12/L Normal 3.80-5.80 [facility] Hematocrit (HCT) 39.7 % Normal 37.0-54.0 [facility] Hemoglobin mass conc (Bld) 13.5 g/dL Normal 12.5-16.5 [facility] MCH 30.1 pg Normal 26.0-35.0 [facility] MCHC mass conc (RBC) 34.0 % Normal 32.0-34.5 [facility] MCV 88.4 fL Normal 80.0-99.9 [facility] Platelet mean volume (PMV) 10.1 fL Normal 7.0-12.0 [facility] Platelets 365 E9/L Normal 130-450 [facility] WBC (Leukocytes) 14.3 E9/L High 4.5-11.5 [facility] Surgical Specimenon 07-19-19 Surgical Specimen HUMILITY OF ANUPAMA DOLORES [address] [id number] [place] [address] CORRECTED SURGICAL PATHOLOGY REPORTNAME: SUNG HOBBS Date of 07/18/2017 Collection:Medical Record [id number] Date of 07/19/2017Number: Receipt:Age: 61 Y Sex: M Date 08/01/2017 12:53 Reported:Date Of : 1955 Date 08/01/2017 12:53 Revised:Financial [id number] Admitting HARPREET OCONNORNumber: Physician:Allie GALLEGOS Ordering HARPREET OCONNORLocation: Physician:Accession Number: [id number] FOR REVISION:This report is revised by SAM [...] Submitted in one part in formalin labeled [facility]-5 disc are multiple, variably shaped and sized portions lkgipp-ory-gbin roughened fibrous and fibrocartilaginous tissue whichmeasures 6.5 x 4.3 x 1.3 cm in aggregate dimension. Multiple, apparentfragments of bone are present within this aggregate. Sectioning isunremarkable. Towel Hemmer portions are submitted after milddecalcification. Block label: A1. (SAM:SAM)CODES: 85313; 13856; Department of Pathology Page 1 of 1 Normal [facility] Basic Metabolic Panelon 06-15 Anion gap 15 mmol/L Normal 7-16 [facility] Calcium 9.6 mg/dL Normal 8.6-10.2 [facility] Chloride 97 mmol/L Low 98-107 [facility] CO2 24 mmol/L Normal 22-29 [facility] Creatinine 1.1 mg/dL Normal 0.7-1.2 [facility] eGFR (black) mL/min/{1.73_m2} Normal [facility] eGFR (non-black) mL/min/{1.73_m2} Normal >=60 [facility] Comment on above: Result Comment: Stove Mechanic art Kidney Disease: less than 60 ml/min/1.73 sq.m. Kidney Failure: less than 15 ml/min/1.73 sq.m.Results valid for patients 18 years and older. Glucose mass conc 110 mg/dL High 74-109 [facility] Potassium molar conc 4.4 mmol/L Normal 3.5-5.0 [facility] Sodium 136 mmol/L Normal 132-146 [facility] Urea nitrogen 17 mg/dL Normal 8-23 [facility] CBC With Platelet No Differe ntialon 07-07-2017 Erythrocyte distribution width Auto Ratio (RBC) 12.8 fL Normal 11.5-15.0 [facility] Erythrocytes (RBC) 5.03 E12/L Normal 3.80-5.80 [facility] Hematocrit (HCT) 44.4 % Normal 37.0-54.0 [facility] Hemoglobin mass conc (Bld) 15.2 g/dL Normal 12.5-16.5 [facility] MCH 30.2 pg Normal 26.0-35.0 [facility] MCHC mass conc (RBC) 34.2 % Normal 32.0-34.5 [facility] MCV 88.3 fL Normal 80.0-99.9 [facility] Platelet mean volume (PMV) 10.1 fL Normal 7.0-12.0 [facility] Platelets 361 E9/L Normal 130-450 [facility] WBC (Leukocytes) 9.3 E9/L Normal 4.5-11.5 [facility] Culture, MRSA Screenon 07-07 Culture, MRSA Screen Culture, MRSA Scree n-: Methicillin resistant Staph aureus not isolated Normal [facility] Culture, Urineon 07-07-2017 Culture, Urine Culture, Urine-: Growth not present Normal [facility] Type and Screen Capture 3 sc rn cellon 07-07-2017 ABORH Capture Positive Normal [facility] Antibody 3 Cell Scrn Capture Negative Normal [facility] Comment on above: Result Comment: @ 13:42 by KERRI:SPECIMEN EXPIRES ON: 07/21/17 @ 23:59 Vital Signs Date Time Vital Sign Value Performing Clinician Ted morgan 08-29-2024 13:27-0400 Body height 185.[address] Robin Vasquez MD Work Phone: [facility] [place] [facility] 08-29-2024 13:27-0400 Body mass index (BMI) [Ratio] 31.2 kg/m2 Dr. Robin Vasquez MD Work Phone: [facility] [place] [facility] 08-29-2024 13:27-0400 Body weight 107.[address] Robin Vasquez MD Work Phone: [facility] [place] [facility] 08-29-2024 13:27-0400 Diastolic blood pressure 66 mm[Hg] Dr. Robin Vasquez MD Work Phone: [facility] [place] [facility] 08-29-2024 13:27-0400 Heart rate 48 /min Dr. Robin Vasquez MD Work Phone: [facility] [place] [facility] 08-29-2024 13:27-0400 Respiratory rate 16 /min Dr. Robin Vasquez MD Work Phone: [facility] [place] [facility] 08-29-2024 13:27-0400 Systolic blood pressure 107 mm[Hg] Dr. Robin Vasquez MD Work Phone: [facility] [place] [facility] 07-26-2024 12:39-0400 Body weight 107.23 kg Najma Mckenzie MD Work Phone: [facility] 07-26-2024 12:39-0400 Diastolic blood pressure 82 mm[Hg] Najma Mckenzie MD Work Phone: [facility] 07-26-2024 12:39-0400 Heart rate 65 /min Najma Mckenzie MD Work Phone: [facility] 07-26-2024 12:39-0400 SaO2% (BldA) [Mass fraction] 92 % Najma Mckenzie MD Work Phone: [facility] 07-26-2024 12:39-0400 Systolic blood pressure 133 mm[Hg] Najma Mckenzie MD Work Phone: [facility] 06-20-2024 13:57-0400 Body height 182.9 cm Selina Nichole DO Work Phone: [facility] 06-20-2024 13:57-0400 Body mass index (BMI) [Ratio] 31.79 kg/m2 Selina Nichole DO Work Phone: [facility] 06-20-2024 13:57-0400 Body temperature 98.4 [degF] Selina Nichole DO Work Phone: [facility] 06-20-2024 13:57-0400 Body weight 106.32 kg Selina Piasecki DO Work Phone: [facility] 06-20-2024 13:57-0400 Diastolic blood pressure 78 mm[Hg] Selina Piasecki DO Work Phone: [facility] 06-20-2024 13:57-0400 Heart rate 57 /min Selina Piasecki DO Work Phone: [facility] 06-20-2024 13:57-0400 SaO2% (BldA) [Mass fraction] 98 % Selina Piasecki DO Work Phone: [facility] 06-20-2024 13:57-0400 Systolic blood pressure 135 mm[Hg] Selina Piasecki DO Work Phone: [facility] 07-12-2023 14:27-0400 Body height 185.4 cm Opal Allen SENIOR LANDSCAPE ARCHITECT[employer] Work Phone: [facility] 07-12-2023 14:27-0400 Body mass index (BMI) [Ratio] 29.03 kg/m2 Opal Allen SENIOR LANDSCAPE ARCHITECT[employer] Work Phone: [facility] 07-12-2023 14:27-0400 Body weight 99.79 kg Opal Allen SENIOR LANDSCAPE ARCHITECT-REVENUE INSPECTOR Work Phone: [facility] Encounters Encounter Date Encounter Type Care Provider Facility Start: 10-10-2024 ambulatory [facility] Facility:[facility] Start: 10-03-2024 End: 10-03-[address] Robin Vasquez MD -Laboratory Specimen Work Phone: Start: 10-03-2024 End: 10-03-2024 ambulatory Robin Vasquez Facility:[facility] [place] [facility] Start: 09-26-2024 Encounter for other preprocedural examination [facility] Start: 09-21-2024 Non-patient / Non-visit Dr. Calvin saucedo MD -[facility] Work Phone: Start: 09-21-2024 End: 09-21-[address] Robin Vasquez MD Work Phone: -Pulmonary Services/Neurology Start: 09-21-2024 End: 09-21-[address] Robin Vasquez MD -Pulmonary Services/Neurology Work Phone: Start: 09-20-2024 End: 09-21-[address] [facility] Start: 09-17-2024 End: 09-17-[address] [facility] Start: 09-13-2024 End: 09-13-[address] [facility] Start: 09-10-2024 End: 09-10-2024 ambulatory [facility] Start: 09-06-2024 End: 09-06-[address] [facility] Start: 09-03-2024 End: 09-03-2024 ambulatory [facility] Start: 08-30-2024 End: 08-30-[address] [facility] Start: 08-29-2024 End: 08-29-[address] Eric Srinivasan MD -[facility] Work Phone: Start: 08-29-2024 End: 08-29-[address] Robin Vasquez MD Work Phone: -[facility] Start: 08-28-2024 End: 08-28-[address] [facility] Start: 08-20-2024 End: 08-20-[address] [facility] Start: 08-14-2024 End: 08-14-2024 Office outpatient visit 15 minutes Maxwell Santana PA-C Work Phone: [facility] Comment on above: Cervical radiculopat hy (Primary Dx) Start: 08-14-2024 End: 08-14-2024 ambulatory [facility] Start: 08-12-2024 End: 08-13-2024 Follow-up encounter Najma Mckenzie MD Work Phone: Pulmonary Medicine Start: 08-10-2024 End: 08-10-2024 ambulatory NAJMA MCKENZIE Facility:[facility] Start: 08-08-2024 End: 08-08-[address] Robin Vasquez MD Work Phone: -Cat Scan [facility] Start: 08-08-2024 End: 08-08-[address] Robin Vasquez MD -Cat Scan [facility] Work Phone: Start: 08-08-2024 End: 08-08-2024 [facility] [place] [facility] Start: 07-26-2024 End: 07-26-2024 Patient [...] visit by physician Jigna Thompson Mri [facility] Comment on above: Cervical radiculopat hy Start: 07-25-2024 End: 07-25-2024 [facility] Start: 06-21-2024 End: 06-21-2024 Office outpatient new 45 minutes [facility] PA-C Work Phone: [facility] Comment on above: Cervical radiculopat hy (Primary Dx) Start: 06-21-2024 End: 06-21-2024 ambulatory [facility] Start: 06-20-2024 End: 06-20-2024 ambulatory [facility] Start: 06-20-2024 End: 06-20-2024 Office outpatient new 45 minutes [facility] DO Work Phone: [facility] Comment on above: Obstructive sleep ap vilma (Primary Dx); Seasonal allergies Start: 11-02-2023 End: 11-06-2023 ambulatory PHYSICIAN [facility] Start: 07-15-2023 End: 07-19-2023 ambulatory Provider Not In System [facility] Comment on above: History of left knee replacement (Primary Dx) Start: 07-12-2023 End: 07-12-2023 Office outpatient new 30 minutes Opal Allen SENIOR LANDSCAPE ARCHITECT-REVENUE INSPECTOR Work Phone: [facility] Comment on above: Trigger finger of le ft thumb (Primary Dx); Pain of left thumb Start: 07-12-2023 End: 07-12-2023 Subsequent hospital visit by physician Gumaro [id number] X-Ray [facility] Comment on above: Pain of left thumb Start: 07-01-2023 End: 07-05-2023 ambulatory Provider Not In System [facility] Comment on above: History of left knee replacement (Primary Dx) Start: 06-24-2023 End: 06-28-2023 ambulatory Provider Not In System [facility] Comment on above: History of left knee replacement Start: 06-23-2023 Transcribe Orders Provider Not In [facility] Comment on above: History of left knee replacement (Primary Dx) Start: 07-19-2017 End: 07-22-2017 Ambulatory HARPREET Dotson [facility] Start: 07-19-2017 End: 07-22-2017 Ambulatory HARPREET Dotson [facility] Start: 07-07-2017 End: 07-10-2017 Ambulatory HARPREET Dotson [facility] Start: 07-07-2017 End: 07-10-2017 Ambulatory HARPREET OCONNOR [facility] Procedures Date Procedure Procedure Detail Performing Clinician Start: 08-08-[address] Robin Vasquez MD Work Phone: Start: 07-25-2024 Mri spinal canal cervical w/o contrast matrl Maxwell GAMING-Juan Work Phone: Start: 11-02-2023 Lipid 1996 panel - Serum or Plasma Maxwell GAMING-C Work Phone: Start: 07-12-2023 Radex hand minimum 3 views Opal Mcgregor Alejandro SENIOR LANDSCAPE ARCHITECT-REVENUE INSPECTOR Work Phone: Start: 06-24-2023 History of operative procedure on knee History of left knee replacement Provider Not In System Start: 07-19-2017 SURGICAL PATHOLOGY HARPREET OCONNOR Start: 07-19-2017 Basic metabolic panel calcium total HARPREETANUP OCONNOR Start: 07-19-2017 Blood count complete automated HARPREET ANASTASIA Start: 07-07-2017 Basic metabolic panel calcium total HARPREETANUP OCONNOR Start: 07-07-2017 Blood count complete automated [...] RSV Vaccine (1 - 1-dose 75+ series) [facility] Start: 11-01-2028 Lipid panel [facility] Start: 11-01-2026 Diabetes Screening Diabetes Screenin g [facility] Start: 04-14-2026 Screening for malign ant neoplasm of colon [facility] Start: 02-17-2025 Medicare Annual Well ness Visit Medicare Annual Wellness Visit (AWV) [facility] Start: 11-01-2024 Hemoglobin A1c measurement Dana betes: Hemoglobin A1C [facility] Start: 10-15-2024 Influenza vaccination U [facility] Start: 09-28-2024 End: 09-28-2024 Patient encounter procedure 09/28/2024 1:00 PM EDT Office Visit Pulmonary Medicine [address] [place] [id number] Fina Lee APRN.REVENUE INSPECTOR [address] [place] [id number] copd Pulmonary Medicine Comment on above: copd Start: 09-28-2024 End: 09-28-2024 ambulatory [facility]UL[facility] Comment on above: copd Start: 08-29-2024 Evaluation of diagno stic study results [facility] Start: 08-14-2024 End: 08-14-2024 Patient encounter procedure 08/14/2024 11:00 AM EDT Office Visit [facility] [address] [place] [address] Maxwell Santana, PAThangC [address] [facility], [address] [place] [address] [facility] Start: 08-10-2024 End: 08-10-2024 Patient encounter procedure 08/10/2024 11:20 AM EDT Office Visit Cardiology [address] [place], [place] [id number] Asthma-COPD overlap syndrome (HCC) [J44.89] Cardiology Comment on above: Asthma-COPD overlap syndrome (HCC) [J44.89] Start: 07-26-2024 End: 07-26-2024 Patient encounter procedure 07/26/2024 12:45 PM EDT Office Visit Pulmonary Medicine [address] [place] [id number] Najma Mckenzie MD [address] [place], [place] [id number] COPD SLEEP APNEA ( PT DECLINED PRE TESTING STATING JUST RECENTLY HAD BRENDA W DILATOR IF OBS/CHEST XRAYS AND LUNG DIF/PT WILL BRING TO VISIT AND WILL FAX. AWARE [place] Pulmonary Medicine Comment on above: COPD SLEEP APNEA ( P T DECLINED PRE TESTING STATING JUST RECENTLY HAD BRENDA W DILATOR IF OBS/CHEST XRAYS AND LUNG DIF/PT WILL BRING TO VISIT AND WILL FAX. [facility] [place] Start: 06-21-2024 End: 06-21-2025 MR Cervical spine WO contrast MR cervical spine wo IV contrast Imaging Routine Cervical radiculopathy Expected: 06/21/2024 (Approximate), Expires: 06/21/2025 [facility] Service Area Work Phone: Comment on above: Expected: 06/21/2024 (Approximate), Expires: 06/21/2025 Start: 02-15-2024 Advance Directive Discussion Advance Directive Discussion [facility] Start: 02-15-2024 Medicare Advantage A nnual Wellness Visit Medicare Advantage Annual Wellness Visit [facility] Start: 10-16-2023 COVID-19 Vaccine ( season) COVID-19 Vaccine ( season) [facility] Start: 10-16-2023 Influenza vaccination Influenz a Vaccine (Season Ended) [facility] Start: 08-05-2023 End: 08-05-2023 ambulatory 08/05/2023 10:45 AM EDT Treatment [facility] [address] [place] [address] System, Provider Not In Marissa Alonso, ANKITA [facility] Start: 07-29-2023 End: 07-29-2023 ambulatory 07/29/2023 10:45 AM EDT Treatment [facility] [address] [place] [address] System, Provider Not In Marissa Alonso PT [facility] Start: 07-22-2023 End: 07-22-2023 ambulatory [facility] Start: 07-15-2023 End: 07-15-2023 ambulatory 07/15/2023 10:45 AM EDT Treatment [facility] [address] [place] [address] System, Provider Not In Marissa Alonso, PT [facility] Start: 07-12-2023 End: 07-11-2024 XR Hand - left 3 Views [facility] Service Area Work Phone: Comment on above: Expected: 07/12/2023 , Expires: 07/11/2024 Start: 07-08-2023 End: 07-08-2023 ambulatory 07/08/2023 10:45 AM EDT Treatment [facility] [address] [place] [address] System, Provider Not In Robin Dsouza PTA [facility] Start: 07-01-2023 End: 07-01-2023 ambulatory 07/01/2023 10:45 AM EDT Treatment [facility] [address] [place] [address] System, Provider Not In Marissa Alonso, PT Discharge Disposition: Home [facility] Start: 06-24-2023 End: 06-24-2023 ambulatory 06/24/2023 2:30 PM EDT Evaluation [facility] [address] [place] [address] System, Provider Not In Marissa Alonso, PT Discharge Disposition: Home [facility] Start: 10-15-2022 COVID-19 Vaccine ( season) COVID-19 Vaccine ( season) [facility] Start: 12-16-2020 Pneumococcal Vaccine : Age 65+ (2 of 2 - PPSV23 or PCV20) Pneumococcal Vaccine: Age 65+ (2 of 2 - PPSV23 or PCV20) [facility] Start: 11-16-2020 Fall risk assessment Falls Risk Asse ssment [facility] Start: 11-16-2020 Pneumococcal Vaccine : 65+ Years (1 of 1 - PCV) Pneumococcal Vaccine: 65+ Years (1 of 1 - PCV) [facility] Start: 11-16-2020 Pneumococcal Vaccine : Age 65+ (1 of 1 - PCV) Pneumococcal Vaccine: Age 65+ (1 of 1 - PCV) [facility] Start: 02-11-2020 Pneumococcal vaccination [facility] Start: 2015 RSV High Risk: (Elde rly (60+) or Population) (1 - Risk 60-74 years 1-dose series) RSV High Risk: (Elderly (60+) or Population) (1 - Risk 60-74 years 1-dose series) [facility] Start: 2015 RSV patient s and/or patients aged 60+ years (1 - 1-dose 60+ series) RSV patients and/or patients aged 60+ years (1 - 1-dose 60+ series) [facility] Start: 11-16-2005 Administration of he rpes zoster vaccine Zoster Vaccines (1 of 2) [facility] Start: 11-16-2005 Pneumococcal Vaccine : 50+ (1 of 1 - PCV) Pneumococcal Vaccine: 50+ (1 of 1 - PCV) [facility] Start: 11-16-2005 Screening for malign ant neoplasm of colon Flexible sigmoidoscopy [facility] Start: 11-16-2005 Shingrix Vaccine (1 of 2) Harris grix Vaccine (1 of 2) [facility] Start: 11-16-2005 Zoster Vaccines (1 of 2) Zoste r Vaccines (1 of 2) [facility] Start: 11-16-2000 Prostate specific an tigen measurement Prostate Cancer Screening Discussion [facility] Start: 11-16-2000 Screening for malign ant neoplasm of colon [facility] Start: 11-16-1977 DTaP/Tdap/Td Vaccine s (1 - Tdap) DTaP/Tdap/Td Vaccines (1 - Tdap) [facility] Start: 11-16-1974 Urine microalbumin profile DTa P,Tdap,Td Vaccine (1 - Tdap) [facility] Start: 11-16-1973 Anxiety Screening Anxiety Screening [facility] Start: 11-16-1973 Depression Screening Depression Scre ening [facility] Start: 11-16-1973 Diabetes mellitus screening Diabetes Screening [facility] Start: 11-16-1973 Hepatitis C screening Hepatitis C Sc triny [facility] Start: 1967 Depression screening using PHQ-9 (Patient Health Questionnaire 9) score Depression Screening (PHQ-2/9) [facility] Start: 11-16-1958 History and physical examination, annual for health maintenance Wellness Visit [facility] Start: 1955 Lipid panel Lipid Panel [facility] Start: 1955 Medicare Annual Well ness Visit Medicare Annual Wellness Visit (AWV) [facility] Start: 1955 Prostate specific an tigen measurement PSA Level [facility] Start: 1955 Screening for malign ant neoplasm of colon [facility] Start: 1955 Tetanus vaccination Tetanus: Every 1 0yrs [facility] CT for calcium scori ng WO contrast and CTA W contrast IV Heart and coronary arteries [facility] End: 07-26-2025 Echocardiography ECHO Cardiology Routine 1 Occurrences starting 07/26/2024 until 07/26/2025 [facility] Work Phone: Comment on above: 1 Occurrences starti ng 07/26/2024 until 07/26/2025 Hemoglobin A1c/Hemoglobin.total in Blood [facility] Hepatic function panel [facility] Home O2 eval (desatu ration screen) Home O2 eval (desaturation screen) Respiratory Care Routine Obstructive sleep apnea Ordered: 06/27/2024 [facility] Service Area Work Phone: Comment on above: Ordered: 06/27/2024 Lipid 1996 panel - S mercedes or Plasma [facility] End: 08-25-2025 NITRIC OXIDE, EXHALED NITRIC OXIDE, EXHALED PFT Routine Asthma-COPD overlap syndrome (HCC) 1 Occurrences starting 07/26/2024 until 08/25/2025 [facility] Comment on above: 1 Occurrences starti ng 07/26/2024 until 08/25/2025 End: 08-25-2025 OXIMETRY WITH AMBULATION OXIMETRY WITH AMBULATION PFT Routine Asthma-COPD overlap syndrome (HCC) 1 Occurrences starting 07/26/2024 until 08/25/2025 [facility] Comment on above: 1 Occurrences starti ng 07/26/2024 until 08/25/2025 End: 08-25-2025 SPIROMETRY WITH DILATOR IF OBSTRUCTED SPIROMETRY WITH DILATOR IF OBSTRUCTED PFT Routine Asthma-COPD overlap syndrome (HCC) 1 Occurrences starting 07/26/2024 until 08/25/2025 [facility] Comment on above: 1 Occurrences starti ng 07/26/2024 until 08/25/2025 Thyroid stimulating hormone measurement [facility] Payers Date Payer Category Payer Self-pay 2023 Medicare [id number] 2023 Medicare (Managed Care) 1.2. [id number] 315 2023 Medicare [id number] 1955 Unknown [id number] 2.16. 840.1.543473.3.579.2.903 1955 Unknown [id number] 2.16. 840.1.702690.3.579.2.903 1955 Unknown [id number] 2.16. 840.1.152518.3.579.2.903 1955 Unknown [id number] 2.16. 840.1.456171.3.579.2.903 1955 Unknown [id number] 2.16.8 40.1.073272.3.579.2.1246 1955 Unknown [id number] 2.16. 840.1.858755.3.579.2.1244 1955 Unknown [id number] 2.16. 840.1.250085.3.579.2.1244 1955 Unknown [id number] 2.16. 840.1.327798.3.579.2.1244 1955 Unknown [id number] 2.16. 840.1.557961.3.579.2.1244 1955 Unknown [id number] 2.16.8 40.1.353009.3.579.2.1243 1955 Unknown [id number] 2.16.8 40.1.091123.3.579.2.1243 1955 Unknown [id number] 2.16.8 40.1.080805.3.579.2.1243 1955 Unknown [id number] 2.16.8 40.1.916413.3.579.2.1243 1955 Unknown [id number] 2.16.8 40.1.248521.3.579.2.1243 1955 Unknown [id number] 2.16.8 40.1.374434.3.579.2.1243 1955 Unknown [id number] 2.16.8 40.1.134384.3.579.2.1243 1955 Unknown [id number] 2.16.8 40.1.232387.3.579.2.1243 1955 Unknown [id number] 2.16.8 40.1.642045.3.579.2.1243 Unknown [id number] 2.16.8 40.1.319877.3.579.2.462 Unknown [id number] 2.16.8 40.1.293784.3.579.2.462 Unknown [id number] 2.16.8 40.1.711283.3.579.2.462 Unknown [id number] 2.16.8 40.1.409152.3.579.2.462 Unknown [id number] 2.16.8 40.1.876088.3.579.2.462 Unknown [id number] 2.16.8 40.1.455946.3.579.2.462 Social History Date Type Detail Facility Tobacco smoking status IDIS Tobacco smoking consumption unknown [facility] Start: 1955 Sex Assigned At Not on file [facility] Start: 07-12-2023 End: 06-20-2024 Gender identity Not on file [facility] Start: 07-12-2023 End: 08-23-2024 Tobacco smoking status IDIS Never smoked tobacco [facility] Work Phone: Start: 07-12-2023 End: 06-20-2024 Tobacco use and exposure Smokeless tobacco non-user [facility] Work Phone: Start: 07-12-2023 End: 06-20-2024 Alcoholic beverage intake Lifetime non-drinker (finding) [facility] Work Phone: Start: 07-02-2023 End: 07-25-2024 Exposure to SARS-CoV-2 (event) Not sure [facility] Start: 07-12-2023 End: 06-20-2024 History of Social function [facility] Work Phone: Start: 07-26-2024 End: 08-14-2024 Alcoholic beverage intake Current drinker of alcohol (finding) [facility] National Score (1-100), lower number is lower risk 58 [facility] Start: 07-26-2024 Alcohol Comment Evening wine 3oz [facility] Start: 1955 Sex Assigned At Male [facility] NEGATED: Highlighted rowStart: NINF History of tobacco use Passive smoker [facility] Work Phone: Clinical Notes 06-24-2023 to 08-29-2024 Note Date & Type Note Facility 08-29-2024 Evaluation note Diagnosis Onset Date Resolution Chest pain acute August 29 1:14pm Hypercholesterolemia acute August 29, 2024 1:14pm [facility] Work Phone: 1(700) 498-374907-01-2025 History of Present illness Narrative* Maxwell Santana [...] will follow-up as needed documented in this [facility] Work Phone: 1(925) 147-549006-26-2025 Radiology Diagnostic study note [facility] Imaging Services [address], [place] [address] Sinus/Facial Bone MR#: [id number] Acct: [id number] Name: SUNG HOBBS Rep #: [id number] : 1955 M 68 From: Celsetina Du MD PCP: GEO REYNAGA Status: REG CLI Study:Sinus/Facial Bone Date of Exam: Exam# [id number] Ordering Dr: Robin Vasquez MD PROCEDURE: SINUS/FACIAL [...] CT/Sinus/Facial Bone IMPRESSION: Chronic sinusitis. Reading Location: [place] [address] CC: GEO REYNAGA; Dr. Robin Vasquez MD ~ Philosophy Lecturer: Signed [facility]06-12-2025 History of Present illness Narrative* Najma Mckenzie MD - 07/26/2024 12:45 PM EDT Images from the original note were not included. . [facility] [place] Note Patient name: Sung Hobbs PCP: No primary care provider on file. Referring Physician: Self referral Recording using [employer] software for draft documentation of the visit was discussed with the patient/authorized community engagement representative; all questions welcomed and answered. 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 He denies any exacerbation [...] machine with good compliance. DATA: PFT from [place] 04/18/24: FVC 3.64 L 74% FEV1 2.60 [...] / Diagnostic Studies: Chest x-ray performed in [place] 05/2024 report states no abnormality PAST MEDICAL [...] gemfibrozil (LOPID) 600 mg tablet 600 mg. cgrzcqfyvfr-exoyeifbw-nlexpmrp (TRELEGY ELLIPTA) 200-62.5-25 mcg inhalation powder Inhale [...] which included preparing to see the patient, vvxy-fc-odps patient care, completing clinical documentation, obtaining and/or reviewing separately obtained history, performing a medically appropriate examination, ordering medications, tests, or procedures, and independently interpreting results (not separately reported). Najma Mckenzie MD [facility] [place] [facility] NoteHNO ID: [id number] Author: NAJMA MCKENZIE MD Service: ? Author Type: Physician Type: Progress Notes Filed: 07/26/2024 15:40 Note Text: . [facility] [place] Note Patient name: Sung Hobbs PCP: No primary care provider on file. Referring Physician: Self referral Recording using [employer] software for draft documentation of the visit was discussed with the patient/authorized community engagement representative; all questions welcomed and answered. 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 He denies any exacerbation [...] machine with good compliance. DATA: PFT from [place] 04/18/24: FVC 3.64 L 74% FEV1 2.60 [...] / Diagnostic Studies: Chest x-ray performed in [place] 05/2024 report states no abnormality PAST MEDICAL [...] gemfibrozil (LOPID) 600 mg tablet 600 mg. iccyzyechjw-ddxnowqfv-kwbcfnfs (TRELEGY ELLIPTA) 200-62.5-25 mcg inhalation powder Inhale [...] or numbn (more content not included)...[facility]06-11-2025 Telephone encounter Note* Telephone Encounter - Selma Yanez LPN - 07/25/2024 10:40 AM EDT Patient returned call to PSS line confirming appt is for second opinion COPD. Selma Yanez LPN [facility]06-11-2025 Miscellaneous Notes* Telephone Encounter - Selma Yanez [...] be an appropriate visit [facility] Telephone encounter Note * Telephone Encounter - Selma Yanez LPN - 07/25/2024 9:37 AM EDT LMTC to verify reason for visit. Dr. Mckenzie does not manage sleep apnea. Selma Yanez LPN [facility]06-11-2025 Telephone encounter Note* Telephone Encounter - Selma Yanez LPN - 07/25/2024 9:37 AM EDT ----- Message from Najma Mckenzie MD sent at 07/25/2024 5:04 AM EDT ----- Scheduled for tomorrow. Has JUAN. Non smoker without evidence of COPD. Patient needs to know I do not manage JUAN, so may not be an appropriate visit [facility]05-08-2025 History of Present illness Narrative* Maxwell Santana [...] years later. This was all done at [facility] in [place]. Denies bowel or bladder complaints saddle anesthesia [...] function. Patient is been using prescription meds rnva-bij-vifhwqb meds he has not been doing physical [...] a prescription for physical therapy in the [place] area. Also get an MRI cervical spine at her er[facility] facility he will follow-up after those films documented in this [facility] Work Phone: 1(741) 707-408005-07-2025 History of Present illness Narrative* Selina Nichole, DO - 06/20/2024 1:40 PM EDT Subjective Patient [...] studies were done at a facility in [facility]. His ESS was 5. His medications are [...] sleep apnea that was diagnosed by a tile roofer in the [facility]. It further states that he only saw this individual 1 time in February 2023. The office notes indicate that he has never seen a tile roofer for his history of bronchitis or pneumonias. 2. The patient was agreeable to doing overnight oxygen trending in the form of an HST or in-lab sleep study. I could not find any results in the records that the patient provided. 3. Seasonal allergies. This note was transcribed using the [employer] Dictation system. There may be grammatical, punctuation,or verbiage errors that occur with voice recognition programs. Selina Nichole DO 06/27/24 11:56 AM /Geo Godfrey documented in this [facility] Work Phone: 1(910) 642-272705-31-2024 History of Present illness Narrative* Marissa Alonso, PT - 07/15/2023 10:45 AM EDT [facility] OUTPATIENT REHABILITATION DAILY TREATMENT NOTE Today's [...] as tolerated Notes 10:49 11:27 Therapeutic Exercise (67114) Intervention NuStep L3 5 mins NT due [...] to high impactful activities Parameters Access Code: [email or web address] URL: [email or web address] Date: 06/24/2023 Prepared by: Marissa Alonso Exercises [...] on continue Marissa Alonso PT STATE LICENSE, [id number] documented in this [id number] Evaluation + Plan note* Assessment & Plan Note - SUNNY Benton - 07/12/2023 9:10 PM EDT Associated Problem(s): [...] of care This note was generated using [employer] software. It may contain errors in wording, punctuation or spelling. [facility] Work Phone: 1(764) 557-613905-28-2024 Miscellaneous Notes* Assessment & Plan Note - [...] of care This note was generated using [employer] software. It may contain errors in wording, punctuation or spelling. documented in this [facility] Work Phone: 1(702) 636-777305-28-2024 History of Present illness Narrative* SUNNY Benton - 07/12/2023 2:15 PM EDT Subjective Patient ID: Sung Hobbs is a 67 y.o. male. Chief Complaint: Pain of the Left Thumb HPI Sung is a pleasant 67-year-old gentleman presenting today for new patient evaluation of left thumb pain. Patient has had intermittent symptoms over the last 2 years. Patient lives part-time in [place] and part-time here. Last eval and cortisone injection was in January 2023 zil-fi-xkuvs. Patient gets good relief with cortisone injections. [...] of care This note was generated using [employer] software. It may contain errors in wording, punctuation or spelling. Other Visit Diagnoses Codes Pain of left thumb M79.645 Relevant Orders XR hand left 3+ views documented in this [facility] Work Phone: 1(434) 255-257105-17-2024 History of Present illness Narrative* Marissa Alonso, PT - 07/01/2023 10:45 AM EDT [facility] OUTPATIENT REHABILITATION DAILY TREATMENT NOTE Today's [...] that he used to before going to [place]. Objective Treatments: Physical Therapy Exercise Log - 07/01/23 1051 OTHER Precautions/Contraindications 04/13 L TKA , include higher functioanl strengthening as tolerated Notes 10:50 11:26 Therapeutic Exercise (70823) Intervention NuStep L3 5 mins Parameters high [...] to high impactful activities Parameters Access Code: [email or web address] URL: [email or web address] Date: 06/24/2023 Prepared by: Marissa Alonso Exercises [...] as tolerated Marissa Alonso PT STATE LICENSE, [id number] documented in this [id number] History of Present illness Narrative* Marissa Alonso PT - 06/24/2023 2:30 PM EDT [facility] OUTPATIENT REHABILITATION Evaluation Today's Date 06/24/2023 [...] He had 10 sessions of therapy at [place] and recently he moved to [place] and would like to continue therapy to build up strength and return to PLOF. He has 120 degree of knee bending and almost straight knee. 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 He has been doing walking 1.5 miles and riding bike. He goes to [facility] and does leg press, quads, hamstring curls [...] playing pickle ball and running Social Support: Jew, social, or cultural considerations to be made aware of before starting treatment: No Home Environment Current Home Environment: Current setup: stairs are fine. Fall risk screening Fallen 2 or more times in the last 12 months: No Injured as a result of a fall in the last 12 months: No Jew, social, or cultural considerations to be made [...] higher functioanl strengthening as tolerated Therapeutic Exercise (90789) Parameters high step up Nv Intervention squat NV Parameters lunge, hamstring and calf stretch NV Intervention education about ROM gaining probability, strengthening with different angle to improvefunctional strength, different actiivties and impact on joint, gardual return to high impactful activities Parameters Access Code: [email or web address] URL: [email or web address] Date: 06/24/2023 Prepared by: Marissa Alonso Exercises [...] week Duration: 4 weeks Interventions: Therapeutic Exercise (98927), Neuromuscular Re-Education (37994), Manual Therapy (61151), Gait Training (03136), Hot/Cold Pack (94919), and Vasopneumatic (31155) Rehab Potential: fair Goals: Physical Therapy Ortho [...] medically necessary. Marissa Alonso PT STATE LICENSE, [id number] documented in this [id number] History of Present illness Narrative* Marissa Alonso PT - 06/24/2023 2:30 PM EDT [facility] OUTPATIENT REHABILITATION Evaluation Today's Date 06/24/2023 [...] He had [place] sessions of therapy at [place] and recently he moved to [place] and would like to continue therapy to build up strength and return to [facility]. He has 120 degree of knee bending and almost straight knee. 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 He has been doing walking 1.5 miles and riding bike. He goes to [facility] and does leg press, quads, hamstring curls [...] playing pickle ball and running Social Support: Jew, social, or cultural considerations to be made aware of before starting treatment: No Home Environment Current Home Environment: Current setup: stairs are fine. Fall risk screening Fallen 2 or more times in the last 12 months: No Injured as a result of a fall in the last 12 months: No Jew, social, or cultural considerations to be made [...] higher functioanl strengthening as tolerated Therapeutic Exercise (81322) Parameters high step up Nv Intervention squat NV Parameters lunge, hamstring and calf stretch NV Intervention education about ROM gaining probability, strengthening with different angle to improvefunctional strength, different actiivties and impact on joint, gardual return to high impactful activities Parameters Access Code: [email or web address] URL: [email or web address] Date: 06/24/2023 Prepared by: Marissa Alonso Exercises [...] week Duration: 4 weeks Interventions: Therapeutic Exercise (72679), Neuromuscular Re-Education (04711), Manual Therapy (30255), Gait Training (06648), Hot/Cold Pack (39786), and Vasopneumatic (75348) Rehab Potential: fair Goals: Physical Therapy Ortho [...] that services are medically necessary. Marissa Alonso, [place] STATE LICENSE, [id number] [facility] Diagnosis History of left knee [facility]- [facility] History of left knee replacement [facility] [place]* Diagnosis History of left knee replacement- Primary [facility] Diagnosis History of left knee replacement [facility] Diagnosis Trigger finger of left thumb- Primary Pain of left thumb documented in this encounter [facility] Work Phone: Evaluation note* Diagnosis Pain of left thumb documented in this encounter [facility] Work Phone: Evaluation note* Diagnosis History of left knee replacement- Primary [facility] Diagnosis Trigger finger of left thumb- Primary Pain of left thumb Cervical radiculopathy- Primary Brachial neuritis or radiculitis nos Cervical radiculopathy Brachial neuritis or radiculitis nos documented in this encounter [facility] Work Phone: Evaluation note* Diagnosis Trigger finger of left thumb- Primary Pain of left thumb Obstructive sleep apnea- Primary Obstructive sleep apnea (adult) (pediatric) Seasonal allergies Allergic rhinitis, cause unspecified documented in this encounter [facility] Work Phone: Evaluation note* Diagnosis Trigger finger of left thumb- Primary Pain of left thumb Cervical radiculopathy Brachial neuritis or radiculitis nos documented in this encounter [facility] Work Phone: Evaluation note* Diagnosis Asthma-COPD overlap syndrome (HCC)- Primary Post-nasal drip Postnasal drip JUAN on CPAP Obstructive sleep apnea (adult) (pediatric) [facility] assessment information availableW[facility] Work Phone: Evaluation note* Diagnosis Trigger finger of left thumb- Primary Pain of left thumb Cervical radiculopathy- Primary Brachial neuritis or radiculitis nos documented in this encounter [facility] Work Phone: Reason for referral (narrative)* Consultation (Routine) - Authorized Specialty Diagnoses / Procedures Referred By Gunnar grace Referred To Contact Orthopaedic Surgery / Orthopedic Surgery Diagnoses Trigger finger of left thumb Procedures Follow Up In Orthopaedic Surgery Opal Allen APRN-REVENUE INSPECTOR [address] [facility] [place], [place] [address] Sleina Vargas MD [address] [place] [address] Referral ID Status Reason Start Date Expiration Date V isits Requested Visits Authorized [id number] Authorized 07/12/2023 07/11/2024 1 1 * Imaging (Routine) - Authorized Specialty Diagnoses / Procedures Referred By Gunnar grace Referred To Contact Radiology Diagnoses Pain of left thumb Procedures XR hand left 3+ views Opal Allen APRN-WILL [address] [facility], [place] [id number] [place] [address] [place] [address] Referral ID Status Reason Start Date Expiration Date Visits Requested Visits Authorized [id number] Authorized Perform Procedure 07/12/2023 07/11/2024 1 1 [facility] Work Phone: Reason for referral (narrative)No reason for referral information availableWUniversity [facility]als [facility] Work Phone: Reason for visit Narrative* Imaging (Routine) - Authorized Specialty Diagnoses / Procedures Referred By Contac t Referred To Contact Radiology Diagnoses Cervical radiculopathy Procedures MR cervical spine wo IV contrast Maxwell Santana PA-C [address] [facility], [address] [place] [address] Phone: tel: fax: Referral ID Status Reason Start Date Expiration Date Visits Requested Visits Authorized [id number] Authorized Perform Procedure 06/21/2024 06/21/2025 1 1 [facility] Work Phone: Summary Purpose Family History Relationship Condition Age at Onset Recorded Date/T [...] knee replacement System, Provider Not In Rehab [place] [address] [place] [address] Referral ID Status Reason Start Date Expiration Date V isits Requested Visits Authorized [id number] Authorized 06/23/2023 06/22/2024 1 199 Specialty Diagnoses / Procedures Referred By Contac t Referred To Contact Radiology Diagnoses Pain of left thumb Procedures XR hand left 3+ views Opal Allen, SENIOR LANDSCAPE ARCHITECT-REVENUE INSPECTOR [address] [facility], [facility] [address] [place] [address] [address] [place] [address] Referral ID Status Reason Start Date Expiration Date Visits Requested Visits Authorized [id number] Authorized Perform Procedure 07/12/2023 07/11/2024 1 1 [...] pm Hypercholesterolemia August 29, 2024 1:1 4pm Chief Complaint Admit Date CHRONIC SINUSITIS August 08, 2024 1:11 pm Tachycardia/Family Hx of Heart Issues (S elf) August 29, 2024 1:14pm PRE-OP September 21, 2024 12: 04pm PRE-OP September 21, 2024 12: 17pm ORDER SCANNED October 03, 2024 3: 29pm Additional Source Comments (unrecognized sect ion and content) No Status Records FoundNo Status Records FoundNo Status Records FoundNo Status Records FoundNo Status Records FoundNo Status Records FoundNo Status Records FoundNo Status Records Found INFORMATION SOURCE (unrecogn ized section and content) DATE CREATED AUTHOR 08/02/2017 [facility] DATE CREATED AUTHOR AUTHOR'S ORGANIZ ATION 08/02/2017 [facility] DATE CREATED AUTHOR AUTHOR'S ORGANIZ ATION 11/07/2023 [facility] DATE CREATED AUTHOR AUTHOR'S ORGANIZ ATION 07/30/2024 [facility] DATE CREATED AUTHOR AUTHOR'S ORGANIZ ATION 08/11/2024 [facility] DATE CREATED AUTHOR AUTHOR'S ORGANIZ ATION 08/16/2024 [facility] DATE CREATED AUTHOR AUTHOR'S ORGANIZ ATION 09/23/2024 [facility] DATE CREATED AUTHOR AUTHOR'S ORGANIZ ATION 10/05/2024 [facility] Care Teams (unrecognized sec tion and content) Racket Stringer Relationship Specialty Start Date End Date System, Provider Not In PCP - General 06/23/23 Racket Stringer Relationship Specialty Start Date End Date System, Provider Not In PCP - General 06/23/23 Racket Stringer Relationship Specialty Start Date End Date System, Provider Not In PCP - General 06/23/23 Racket Stringer Relationship Specialty Start Date End Date No, Physician [facility] PCP - General 06/15/23 Racket Stringer Relationship Specialty Start Date End Date Generic Provider, [place] [address] PCP - General Product Manager Financial Services 07/12/24 Team Status: Active Member Role/Relationship Status [...] August 08, 2024 End: August 08, 2024 Racket Stringer Relationship Specialty Start Date End Date Generic Provider, [place] [address] PCP - General Product Manager Financial Services 07/12/24 Team Status: Inactive Member Role/Relationship Status [...] September 21, 2024 End: September 21, 2024 GEOJUHI CALVILLO Primary Care Provider Active Sta rt: September 21, 2024 End: September 21, 2024 Team Status: Active Member Role/Relationship Status Dates Dr. Calvin Ga MD Attending Provider Active Start: September 21, 2024 Dr. Robin Vasquez MD Referring Provider Activ e Start: September 21, 2024 Team Status: Active Member Role/Relationship Status Dates Primary Care Physician Primary Care Provider Active Team Status: Inactive [...] Provider Activ e Start: September 21, 2024 Team Status: Inactive Member Role/Relationship Status Dates Dr. Robin Vasquez MD Attending Provider Activ e Start: October 03, 2024 End: October 03, 2024 Dr. Robin Vasquez MD Referring Provider Activ e Start: October 03, 2024 End: October 03, 2024 Reason for Visit (unrecogniz ed section and content) Reason Comments Physical Therapy Specialty Diagnoses / Procedures Referred By Contac t Referred To Contact Rehabilitation Diagnoses History of left knee replacement System, Provider Not In Rehab [place] [address] [place] [address] Referral ID Status Reason Start Date Expiration Date V isits Requested Visits Authorized [id number] Authorized 06/23/2023 06/22/2024 1 199 Reason Comments Pain Specialty Diagnoses / Procedures Referred By Contac t Referred To Contact Radiology Diagnoses Pain of left thumb Procedures XR hand left 3+ views Opal Allen, SENIOR LANDSCAPE ARCHITECT-REVENUE INSPECTOR [address] [facility], [place] [address] [place] [address] [facility] [address] [place] [address] Referral ID Status Reason Start Date Expiration Date Visits Requested Visits Authorized [id number] Authorized Perform Procedure 07/12/2023 07/11/2024 1 1 Referral ID Status Reason Start Date Expiration Date V isits Requested Visits Authorized [id number] Pending Review 06/23/2023 06/22/2024 1 199 Reason [...] or prosecute any alcohol or drug abuse patient.[facility] HospitalIn the event this information is protected by the Federal Confidentiality of Alcohol and Drug Abuse Patient Records regulations: The Federal rules restrict any use of the information to criminally investigate or prosecute any alcohol or drug abuse patient.[facility] HospitalIn the event this information is protected by the Federal Confidentiality of Alcohol and Drug Abuse Patient Records regulations: The Federal rules restrict any use of the information to criminally investigate or prosecute any alcohol or drug abuse patient.[facility] HospitalIn the event this information is protected by the Federal Confidentiality of Alcohol and Drug Abuse Patient Records regulations: The Federal rules restrict any use of the information to criminally investigate or prosecute any alcohol or drug abuse patient.[facility] Goals (unrecognized section and content) Goals may [...] BE BASED ON THE PRIMARY CLINICAL RECORDS. [facility]. provides no warranty or guarantee of the accuracy or completeness of information in this document.
--- NOTE | 2024-10-15 09:57 | CA.SCORE ---
Calcium Scoring Date of Study:: 10/10/24 Indications Indications: Hyperlipidemia Coronary Calcium Scoring: High-resolution Computed Tomographic imaging of the chest was performed on [10/10/2024], with particular attention paid to the coronary arteries. Images from the examination were analyzed for the presence and extent of coronary artery calcification , using coronary calcium quantification software. The patient tolerated the procedure well and there were no complications. The results of the coronary calcification analysis are provided below. Findings Coronary Artery Left Main (LM): 0 Left Anterior Descending (LAD): 0 Left Circumflex (LCX): 0 Right Coronary Artery (RCA): 0 Total Agatston Score: 0 Percentile Rankin Calcium Scoring Interpretation: Different methods to categorize the overall amount of coronary plaque. Overall amount CAC SIS Visual of coronary plaque P1 Mild -100 <2 1-2 vessels with mild amount of plaque P2 Moderate 101-300 3-4 1-2 vessels with moderate amount, 3 vessels with mild amount of plaque P3 Severe 301-999 5-7 3 vessels with moderate amount, 1 vessel with severe amount of plaque P4 Extensive >1000 >8 2-3 vessels with severe amount of plaque Conclusion: No atherosclerotic plaquing noted
== END | disposition home or self-care (01) ==
PROVIDERS: Referring Provider Internal Medicine Cardiovascular Disease; Visit Provider Internal Medicine Cardiovascular Disease
DX: R07.9 Chest pain, unspecified (principal); E78.00 Pure hypercholesterolemia, unspecified
CPT/HCPCS: 75571; 75574; 76380; Q9967; A4216

== ENCOUNTER 2024-12-19 15:43 | Outpatient (CLI) | payer MEDICARE, SELFPAY ==
[2024-12-19 17:36] LABS: Synovial Fld Mononuclear WBC # 0.208 10^3/ul; Synovial Fld Mononuclear WBC % 76.5 %; Synovial Fld Polynuclear WBC # 0.064 10^3/uL; Synovial Fld Polynuclear WBC % 23.5 %; Total Cell Count Synovial Fld 0.2850 10^3/uL (0.000-0.000); WBC / Synovial Fluid 0.2720 10^3/uL (0.000-0.002)
[2024-12-19 17:43] LABS: AUTO B FLUID DILUENT BKGD CT WBC <0.1 RBC <0.01 (W<.1,R<.01); RBC /Synovial Fluid 0.004 10^6/uL (0)
[2024-12-19 17:44] LABS: Source / Synovial Fluid LEFT KNEE; Source- Body Fluid SYNOVIAL
[2024-12-19 17:45] LABS: Color / Synovial Fluid Yellow (Pale Yellow)
[2024-12-19 17:46] LABS: Appearance /Synovial Fluid Cloudy (CLEAR)
[2024-12-19 23:11] LABS: Monocyte /Synovial Fluid 35 %
[2024-12-19 23:13] LABS: Plasma Cell /Synovial Fluid 0 %
[2024-12-19 23:17] LABS: Body Fluid QC Type(s) BF1Q, BF2Q; Other Cell /Synovial Fluid 42 %
[2024-12-19 23:25] LABS: CRYSTALS, BODY FLUID NO CRYSTALS SEEN
== END 2024-12-19 23:59 | disposition home or self-care (01) ==
LOC: LABSPEC 15:44
PROVIDERS: Referring Provider Orthopaedic Surgery; Visit Provider Orthopaedic Surgery
DX: T84.84XD Pain due to internal orthopedic prosthetic devices, implants and grafts, subsequent encounter (principal); X58.XXXD Exposure to other specified factors, subsequent encounter
CPT/HCPCS: 87070; 87075; 87205; 89050; 89051; 89060